=== PATIENT | male | born 1935 | race Caucasian/White ===

== ENCOUNTER 2018-08-25 08:59 | Outpatient (CLI) | payer MEDICARE, SELFPAY ==
[2018-08-25 11:30] LABS: Anion Gap 7.3 mmol/L (3-11); BUN 18 mg/dL (7-18); CO2 28.7 mmol/L (21.0-32.0); CREATININE 1.46 mg/dL (0.70-1.30); Chloride 104 mmol/L (98-107); Estimated GFR 46.34 (mL/min/1.73m2); Glucose 126 mg/dL (70-100); Potassium 4.2 mmol/L (3.5-5.1); Sodium 140 mmol/L (136-145)
== END 2018-08-25 09:19 ==
PROVIDERS: PCP Family Medicine; Visit Provider Family Medicine
DX: I10 Essential (primary) hypertension (principal)
CPT/HCPCS: 36415; 80048

== ENCOUNTER 2018-08-31 11:58 | Outpatient (REF) | payer MEDICARE, SELFPAY ==
--- NOTE | 2018-08-31 11:23 | ORMUBX_PTH ---
PATIENT: Bebe Jones LOC: [facility] U#:[id number] AGE/SX: 82/M ROOM: RE08/31/[address]: Miguel Angel Blackburn MD : [id number] BED: DIS: 08/31/2018 SPEC #: [id number] RECD: 08/31/18 18:03 STATUS: JEREMIAH REQ #: [id number] SHERI: 08/31/18 11:[address]: Miguel Angel Blackburn DEPT: Surgical Specimen RECD BY: Skyla Saxena ENTERED: 08/31/18 18:04 SP TYPE: ORMUBX OTHR DR: Jac Louise MD Tissues: 1 - MUCOSA, NOS Procedures: GROSS AND MICRO LEVEL 4 Comments: [id number]
== END 2018-08-31 12:18 ==
LOC: LBN 11:58
PROVIDERS: PCP Family Medicine; Visit Provider Otolaryngology
DX: C06.0 Malignant neoplasm of cheek mucosa (principal); F17.220 Nicotine dependence, chewing tobacco, uncomplicated
CPT/HCPCS: 88305

== ENCOUNTER 2018-09-11 02:06 | Outpatient (CLI) | payer MEDICARE, SELFPAY ==
[2018-09-11] MEDS: Inhaler, Assist Device 1 EACH MC (08:34)
[2018-09-11] MEDS: Albuterol HFA 18 GM 200 PUFF INH IH (08:36)
--- NOTE | 2018-09-11 16:56 | PFT_ITS ---
PULMONARY FUNCTION TEST REPORT DATE OF SERVICE: September 11, 2018 REQUESTING PROVIDER: Jac Louise M.D. Spirometry shows no evidence of obstructive airways disease, no bronchodilator response. Lung volumes show mild restriction. Diffusion capacity normal. Airways resistance normal. IMPRESSION: Mild restrictive lung disease. Clinical correlation recommended. When this study was compared to previous one from 05/01/12, the patient has a total of 660 cc's decline in FVC; FEV1 has declined by 420 cc's. Clinical correlation recommended. LAISHA/nithya D/
== END 2018-09-11 02:26 ==
PROVIDERS: PCP Family Medicine; Visit Provider Family Medicine
DX: R06.09 Other forms of dyspnea (principal)
CPT/HCPCS: 94060; 94150; 94726; 94729

== ENCOUNTER 2020-09-26 17:46 | Outpatient (REF) | payer OTHER, SELFPAY ==
[2020-09-26 18:34] LABS: CREATININE 1.3 mg/dL (0.70-1.30); Estimated GFR 52.59 (mL/min/1.73m2); Potassium 4.5 mmol/L (3.5-5.1)
== END 2020-09-26 17:47 | disposition home or self-care (01) ==
LOC: NCHCN 17:46
PROVIDERS: PCP Nurse Practitioner; Visit Provider Nurse Practitioner
DX: I10 Essential (primary) hypertension (principal); R73.03 Prediabetes
CPT/HCPCS: 82565; 83036; 84132

== ENCOUNTER 2020-10-01 02:00 | Outpatient (CLI) | payer OTHER, SELFPAY ==
--- NOTE | 2020-10-01 10:05 | DI.RAD_ITS ---
EXAM: XR HIP RT COMPLETE AP PELVIS INDICATION: rt hip pain, [id number]. COMPARISON: No exams were available for comparison TECHNIQUE: 2D digital imaging was performed. FINDINGS: Joint space is well maintained. No significant periarticular spurring. SI joints unremarkable. Min imal enthesophytes at the iliac wings. IMPRESSION: Minimal degenerative changes. DATA REPOSITORY: RADIATION DOSE DELIVERED:
== END 2020-10-01 02:20 ==
PROVIDERS: PCP Nurse Practitioner; Visit Provider Nurse Practitioner
DX: M25.551 Pain in right hip (principal); M16.11 Unilateral primary osteoarthritis, right hip
CPT/HCPCS: 73502

== ENCOUNTER 2021-03-03 18:57 | Emergency (ER) | payer OTHER, SELFPAY ==
[2021-03-03] VITALS (16 sets, daily range): BP systolic 135–160; BP diastolic 60–71; PULSE 75–79; RESP 22–28; TEMP 36.6; O2SAT 97–100
--- NOTE | 2021-03-03 19:00 | RT.EKG_ITS ---
APPROVED REPORT Exam: Resting ECG Reason for Exam: chest pain Patient Location: E HR:76 bpm ECG Measurements Heart Rate 76 AXIS HI 56 P 0 QRSd 158 QRS 93 QT 433 T -81 QTc 487 Conclusion Ventricular-paced rhythm Rate 76
--- NOTE | 2021-03-03 19:45 | DI.RAD_ITS ---
Exam(s) XR PORTABLE CHEST AP EXAM: XR PORTABLE CHEST AP CLINICAL HISTORY: chf, sob. TECHNIQUE: 2D digital imaging was performed. COMPARISON: No exams were available for comparison FINDINGS: Heart size is upper normal. The mediastinum is not widened. There both right and left bipolar subclavian pacemaker is with lead tips in are in RV. Mild increase d markings in the lung diaz most probably related to under inflation. No confluent infiltrates nor obvious pleural effusions. No airspace pulmonary edema. No pneumothorax IMPRESSION: Mild cardiomegaly. Cardiac pacemakers. No acute pulmonary findings evident on this AP portable view of the chest. DATA REPOSITORY: RADIATION DOSE DELIVERED: All CT scans at this facility use at least one of these dose optimization techniques: automated exposure control; mA and/or kV adjustment per patient size (includes targeted e xams where dose is matched to clinical indication); or iterative reconstruction.
[2021-03-03 20:07] LABS: Abs Immature Grans 0.08 10^3/uL (0.0-0.06); Absolute Basophil Count 0.16 10^3/uL (0.0-0.2); Absolute Lymphocyte Count 1.75 10^3/uL (1.2-3.4); Absolute Monocyte Count 0.96 10^3/uL (0.1-0.8); Basophils % 1.7; Eosinophils % 3.1; HCT 41.6 % (40.0-50.0); HGB 13.3 g/dL (13.5-17.5); Immature Grans % 0.8; Lymphocytes % 18.3; MCH 28.7 pg (27.0-33.0); MCV 89.8 fL (80-95); MPV 9.4 fL (8.0-11.0); Monocytes % 10.1; Nucleated RBC 0 %; Platelet Count 330 10^3/uL (130-400); RBC 4.63 10^6/uL (4.36-5.78); RDW-SD 45.9 fL; WBC 9.55 10^3/uL (4.4-10.8)
[2021-03-03 20:14] LABS: Magnesium 2.3 mg/dL (1.8-2.4)
--- NOTE | 2021-03-03 20:16 | W.ED.GENAD ---
Discharge Plan Disposition Patient Disposition: HOME Condition: Good Discharge Details Clinical Impression: CHF (congestive heart failure), Acute bacterial conjunctivitis Primary Care Provider: Zee Pepe ED Provider: Sina Olmos Home Meds and New Rx's Prescriptions: Continued amlodipine 10 mg tablet 10 mg PO DAILY Qty: 90 RF: 4 rivaroxaban 20 mg tablet 20 mg PO DAILY Qty: 90 RF: 4 furosemide 20 mg tablet 40 mg PO DAILY PRN (Reason: edema) RF: 0 Discharge Instructions Instructions: Heart Failure (ED), Conjunctivitis (ED) Additional Instructions: At this time you have a very mild amount of fluid still present in your legs and lungs. We have given you an extra dose of Lasix through the IV, please continue to take 2 of the water pills every morning until you see your family doctor on . Avoid salty foods, keep your legs elevated to decrease the swelling. Please follow-up with your family doctor for discussion of new echocardiogram of your heart to reassess your heart function on a nonemergent outpatient basis. Please apply to drop of the Cipro drops to your affected eye every 4 hours throughout the day. If you notice any worsening of your symptoms, or any new symptoms such as vomiting, diarrhea, fever, chills, shortness of breath, chest pain, numbness, weakness, or fainting , please return immediately to the emergency department for reevaluation. Please follow up with your primary care provider as soon as possible for reassessment and reevaluation. As always, it was a pleasure participating in your medical care today. 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 Patient is here with his daughter, present stating that for the last 2 weeks he has had increased swelling in his lower extremities face and upper extremities. He denies any chest pain or shortness of breath, he denies any positional nocturnal dyspnea, however that being said he does sleep in a recliner at all times. He denies any exertional chest pain. 5 days ago he was seen by his PCP and they doubled his furosemide pill, he has been taking 40 mg daily for the last 4 days. Family has noted some improvement with this for the upper extremities but not the lower extremities. On a seemingly unrelated note the patient has also noted some purulent discharge noted in the right eye. No pain or changes in vision otherwise so. No other complaints at this time. Physical exam demonstrates +2 pitting edema in the lower extremities bilaterally, oxygenation is excellent, lung sounds are clear however bedside ultrasound demonstrate mild streaking and B-lines suggestive of mild fluid overload. Bedside ultrasound of the heart demonstrates no pericardial effusion certainly does seem to demonstrate a reduced ejection fraction from his previous 65% measured 6 months ago. Qualitatively it appears to be around 30 to 40% at this time. I suspect the patient would benefit from continued increase in his furosemide. We will get basic labs to evaluate for his proBNP levels at baseline, as well as a portable chest x-ray for further assessment. In regards to the patient's right eye he does demonstrate evidence of very mild bacterial conjunctivitis which I feel he would benefit from a antibacterial eyedrop. We will provide that here. 8:51 PM Laboratory work-up demonstrates no white count bandemia or left shift. Electrolytes normal, creatinine at baseline at 1.4. Troponin normal, EKG demonstrates ventricular paced rhythm, negative for SCARBOSSA criterion. No evidence of STEMI. proBNP is 819, and not overly elevated. Chest x-ray is read as negative per virtual radiology however bedside ultrasound did show evidence of some B-lines which do not seem to represent consolidation but rather I feel are independent sales representative of mild fluid overload. Patient has no hypoxemia, no indication at this time for admission. I do feel that the patient would benefit from a few more additional days of increased Lasix. We will give him an additional dose of 20 mg of Lasix IV, then recommend that he continues his extra pills until he sees his primary care provider on his scheduled visit on . Symptoms at this time are inconsistent with STEMI, or severe CHF. Will recommend repeat outpatient ultrasound. I have extensively reviewed the treatment plan and discharge instructions with the patient and their family. I have addressed all patient concerns at this time. The patient and family was made aware of what symptoms to monitor for that would warrant a return to the emergency department. Discussed the plan with the patient and family, they demonstrate verbal understanding and agreement with our assessment and plan at this time. The documentation in this chart was dictated using [employer] dictation software. Please excuse any dictation errors. FINDINGS: Tubes, catheters and devices: There are bilateral chest wall pacemakers. One lead projects in the region of the right ventricular outflow tract, and there are multiple leads projecting at the right atrium. Lungs: The lungs are clear. There is no pulmonary vascular congestion. Pleural spaces: There are no pleural effusions present. Heart/Mediastinum: The cardiomediastinal silhouette is within normal limits. Bones/joints: Unremarkable. IMPRESSION: No active cardiopulmonary disease identified. Thank you for allowing us to participate in the care of your patient. Dictated and Authenticated by: Jac Vega MD 03/03/2021 8:48 PM Eastern Time ([place] & [place]) HPI General Date/Time Provider Initiated Documentation: 03/03/21 19:00. 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 Patient is here with his daughter, present stating that for the last 2 weeks he has had increased swelling in his lower extremities face and upper extremities. He denies any chest pain or shortness of breath, he denies any positional nocturnal dyspnea, however that being said he does sleep in a recliner at all times. He denies any exertional chest pain. 5 days ago he was seen by his PCP and they doubled his furosemide pill, he has been taking 40 mg daily for the last 4 days. Family has noted some improvement with this for the upper extremities but not the lower extremities. On a seemingly unrelated note the patient has also noted some purulent discharge noted in the right eye. No pain or changes in vision otherwise so. No other complaints at this time. Related Data Home Medications Medication Instructions Recorded Confirmed rivaroxaban 20 mg tablet 20 mg PO DAILY #90 tab 10/10/20 03/03/21 amlodipine 10 mg tablet 10 mg PO DAILY #90 tab 02/27/21 03/03/21 furosemide 40 mg PO DAILY PRN 03/03/21 03/03/21 Previous Rx's Medication Instructions Recorded rivaroxaban 20 mg tablet 20 mg PO DAILY #90 tab 10/10/20 amlodipine 10 mg tablet 10 mg PO DAILY #90 tab 02/27/21 Allergies Allergy/AdvReac Type Severity Reaction Status Date / Time No Known Allergies Allergy Verified 03/03/21 19:20 General Stated Complaint: GenMedical RYAN: 2 Review of Systems All systems reviewed & are unremarkable except as noted in HPI and below PFSH Medical History Depressive disorder Shoulder pain right shoulder; surgery in 1981; 2005; atrophy Surgical History History of shoulder surgery Pacemaker SHOULDER SURGERY (~2005) Family History Mother Personal history of malignant neoplasm Father Heart disease DC Sister Personal history of malignant neoplasm Brother Personal history of malignant neoplasm STOMACH Grandfather Heart disease Grandfather Personal history of malignant neoplasm Grandmother Stroke Grandmother Personal history of malignant neoplasm Social History Smoking/Tobacco Use Status: Former Tobacco Use Tobacco: How many years used: 70 Quit status: considering quitting Smoking risk assessment performed?: Yes Alcohol Intake: current Alcohol Intake frequency: a few times a week Alcohol type: beer Drug use: Never Household members: spouse Housing: house Pets and animals: Yes Pets and animals: dog(s) Sexually active: No Do you think of yourself as: straight/heterosexual Current gender identity: male What is your relationship status?: How often do you talk on the phone with friends or family?: twice per week How often do you attend holiness or jew services?: 1-3 times per year Do you belong to any clubs or organized social groups?: no Panel score (0-1 are the most socially isolated patients): 1 What type of physical activity do you participate in: none Seatbelt use: sometimes Helmet use: Yes Helmet use: sometimes Drive intox 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 Mild purulent drainage around the medial and lateral canthus. 3.ENT: Atraumatic external nose and ears. Moist MM. Neck: Symmetric, trachea midline, No thyromegaly. 4.CVS: +S1/S2, No murmurs or gallops. Peripheral pulses 2+ and equal in all extremities. Brisk capillary refill in all extremities. 5.RESP: Unlabored respiratory effort. Clear to auscultation bilaterally. No wheezes rales or rhonchi 6.GI: Soft, Nontender/Nondistended, No hepatosplenomegaly. No guarding or rebound. 7.MSK: Normocephalic/Atraumatic, Extremities w/o deformity or ttp No cyanosis or clubbing, Normal movement of all extremities, patient demonstrates +2 pitting edema in the lower extremities, no edema in the upper extremities. Face is unremarkable with no evidence of angioedema. 8.Skin: Warm, Dry. No rashes or lesions. 9.Neuro: chief compliance officer II-XII grossly intact. Sensation grossly intact, no focal neurologic deficits. 10.Psych: (AAO) x3. Appropriate mood and affect Course Vital Signs Vital signs: Vital Signs Temperature 36.6 C 03/03/21 19:10 Pulse 78 03/03/21 19:10 Respiratory Rate 26 H 03/03/21 19:10 Blood Pressure 150/62 H 03/03/21 19:10 Pulse Oximetry 99 03/03/21 19:10 Temperature 36.6 C 03/03/21 19:10 Temperature Source Skin 03/03/21 19:10 Pulse 78 03/03/21 19:10 Respiratory Rate 26 H 03/03/21 19:10 Respiratory Effort Non-Labored 03/03/21 19:31 Blood Pressure 150/62 H 03/03/21 19:10 Blood Pressure Position Supine 03/03/21 19:10 Pulse Oximetry 99 03/03/21 19:10 Oxygen Delivery Method Room Air 03/03/21 19:10 Oxygen Flow Rate 0 03/03/21 19:10 Pain Level 0 03/03/21 19:10 Lab/Test Results Lab/Test Results: Laboratory Tests Range/Units 03/03/21 03/03/21 19:40 19:59 WBC (4.4-10.8) 10^3/uL 9.55 RBC (4.36-5.78) 10^6/uL 4.63 Hgb (13.5-17.5) g/dL 13.3 L Hct (40.0-50.0) % 41.6 MCV (80-95) fL 89.8 MCH (27.0-33.0) pg 28.7 MCHC (32.0-36.0) % 32.0 RDW (11.8-14.1) % 14.0 Plt Count (130-400) 10^3/uL 330 MPV (8.0-11.0) fL 9.4 Immature Gran % 0.8 Neutrophils % 66.0 Lymphocytes % 18.3 Monocytes % 10.1 Eosinophils % 3.1 Basophils % 1.7 Nucleated RBC % % 0 Absolute Neutrophils (1.2-6.7) 10^3/uL 6.30 Absolute Lymphocytes (1.2-3.4) 10^3/uL 1.75 Absolute Monocytes (0.1-0.8) 10^3/uL 0.96 H Absolute Eosinophils (0.0-0.7) 10^3/uL 0.30 Absolute Basophils (0.0-0.2) 10^3/uL 0.16 Sodium Cancelled Potassium Cancelled Chloride Cancelled Carbon Dioxide Cancelled Anion Gap Cancelled BUN Cancelled Creatinine Cancelled Estimated GFR/1.73 m2 Cancelled Glucose Cancelled Calcium Cancelled Total Bilirubin Cancelled AST Cancelled ALT Cancelled Alkaline Phosphatase Cancelled Troponin I Cancelled Total Protein Cancelled Albumin Cancelled
[2021-03-03 20:24] LABS: ALT 22 U/L (16-63); AST 25 U/L (15-37); Albumin 3.8 g/dL (3.4-5.0); Alkaline Phosphatase 79 U/L (46-116); Anion Gap 8.6 mmol/L (3-11); BUN 17 mg/dL (7-18); Bilirubin, Total 0.4 mg/dL (0.2-1.0); CO2 26.4 mmol/L (21.0-32.0); CREATININE 1.4 mg/dL (0.70-1.30); Calcium 8.9 mg/dL (8.5-10.1); Chloride 102 mmol/L (98-107); Estimated GFR 48.28 (mL/min/1.73m2); Glucose 97 mg/dL (74-106); NT-proBNP 819 pg/mL (<300); Potassium 4.2 mmol/L (3.5-5.1); Sodium 137 mmol/L (136-145); Total Protein 8.2 g/dL (6.4-8.2); Troponin I < 0.05 ng/mL (<0.06)
--- NOTE | 2021-03-03 20:48 | DI.VRAD_ITS ---
PROCEDURE INFORMATION: Exam: XR Chest Exam date and time: 03/03/2021 8:00 PM Age: 85 years old Clinical indication: Shortness of breath; Prior surgery; Surgery date: 6+ months; Surgery type: Pace maker x 2 due to broken wire on first one; Patient HX: Chf, SOB TECHNIQUE: Imaging protocol: XR of the chest. Views: 1 view. COMPARISON: No relevant prior studies available. FINDINGS: Tubes, catheters and devices: There are bilateral chest wall pacemakers. One lead projects in the region of the right ventricular outflow tract, and there are multiple leads projecting at the right atrium. Lungs: The lungs are clear. There is no pulmonary vascular congestion. Pleural spaces: There are no pleural effusions present. Heart/Mediastinum: The cardiomediastinal silhouette is within normal limits. Bones/joints: Unremarkable. IMPRESSION: No active cardiopulmonary disease identified. Dictated and Authenticated by: Jac Vega MD. Ordering:JOSE Andino MD
[2021-03-03] MEDS: Furosemide 20 MG/2 ML VIAL IVP (21:36)
[2021-03-03] MEDS: Ciprofloxacin 0.3% 2.5 ML BTL OD (21:47)
== END 2021-03-03 23:38 | disposition home or self-care (01) ==
PROVIDERS: Emergency Medicine; Emergency Provider Student in an Organized Health Care Education/Training Program; PCP Nurse Practitioner
DX: I50.9 Heart failure, unspecified (principal); Z95.0 Presence of cardiac pacemaker; H10.31 Unspecified acute conjunctivitis, right eye; R06.02 Shortness of breath
CPT/HCPCS: 36415; 80053; 93005; 96374; 99284; 71045; 83735; 83880; 84484; 85025; 93010; J1941

== ENCOUNTER → 2021-03-23 11:02 | Outpatient (BNVA) | payer MEDICARE, SELFPAY | PROVIDERS: PCP Nurse Practitioner; Referring Provider Nurse Practitioner; Visit Provider Internal Medicine Cardiovascular Disease | DX: I25.10 Atherosclerotic heart disease of native coronary artery without angina pectoris (principal); I50.9 Heart failure, unspecified; R60.9 Edema, unspecified; I11.0 Hypertensive heart disease with heart failure; I48.20 Chronic atrial fibrillation, unspecified; Z95.0 Presence of cardiac pacemaker | CPT/HCPCS: 99214 ==

== ENCOUNTER 2021-04-21 00:49 | Outpatient (CLI) | payer MEDICARE, SELFPAY ==
--- NOTE | 2021-04-21 07:30 | DI.US_ITS ---
APPROVED REPORT EXAM: Comprehensive 2D, Doppler, and color-flow Echocardiogram Patient Location: Out-Patient Salt Operator: Louise Velasquez RDCS (AE) Indications: Heart failure, Coronary Atherosclerosis, HTN, Pacemaker Other Information Study Quality: Adequate Conclusion Normal left ventricular wall thickness and chamber size. Estimated ejection fraction is 55 to 60%. There are no segmental wall motion abnormalities Mildly dilated right ventricle Both atria are mildly dilated Device lead noted in the right heart Sclerotic aortic valve with trace to mild regurgitation Moderate mitral annular calcification. Mild to moderate mitral regurgitation Normal tricuspid valve with mild regurgitation. Estimated right ventricular systolic pressure is 30 mmHg Normal pulmonic valve with trace regurgitation Mildly dilated ascending aorta measuring 3.55 cm Wall motion Left Ventricle The left ventricle is normal size. The left ventricular systolic function is normal. The left ventric ular ejection fraction is within the normal range. There is normal left ventricular wall thickness. T here is normal LV segmental wall motion. There is no ventricular septal defect visualized. LVEF is 55 -60%. Right Ventricle Right ventricle is mildly dilated. The right ventricular systolic function is normal. The RVSP is 30. 2mmHg. Pacemaker lead is present in the right ventricle. Atria Left atrium is mildly dilated. Right atrium is mildly dilated. The interatrial septum is intact with no evidence for an atrial septal defect. Aortic Valve The Aortic valve is sclerotic. Aortic valve is probably trileaflet. Aortic valve is calcified. No hem odynamically significant valvular aortic stenosis. Trace to mild aortic regurgitation. Mitral Valve Moderate mitral annular calcification. No evidence of mitral valve stenosis. Mild to moderate mitral regurgitation. Tricuspid Valve The tricuspid valve is normal in structure. There is no tricuspid valve stenosis. Mild tricuspid regu rgitation. Pulmonic Valve The pulmonary valve is normal in structure. There is no pulmonic valvular stenosis. Trace pulmonic re gurgitation. Great Vessels The aortic root is normal in size. The ascending aorta is mildly dilated. Aortic arch is not well vis ualized. IVC is normal in size and collapses >50% with inspiration. Pericardium There is no pericardial effusion. 2D Dimensions IVSD d PLAX 1.10 cm M: 0.6-1.2 LV Vol A2C d MOD 80.3 mL LVPW d PLAX 1.10 cm M: 0.6 - 1.2 LV Vol A4C d MOD 85.0 mL LVID d PLAX 4.09 cm M: 4.2 - 5.8 LA vol/ BSA A2C s A-L 45.7 mL/m2 LVDs 2.95 cm M: 2.5 - 4.0 LA vol/ BSA A4C s A-L 30.4 mL/m2 Ao Root d 3.14 cm M: 3.1 - 3.7 LA Vol/ BSA Biplane s A-L 37.8 mL/m2 RA Area A4C 16.56 cm2 LA Area A4C s MOD 19.90 cm2 RA Vol/ BSA A4C s A-L 24.6 mL/m2 LA Area A2C s MOD 24.11 cm2 Ao Asc Diam d 3.55 cm M: 2.6 - 3.4 LV EF A4C MOD 57.1 % LV EF Teichholz 53.4 % LV EF A2C MOD 55.5 % LVEF (Cruz's) 56.32 % M: 52 - 72 LV EF Biplane MOD 56.3 % LV Volume 65.73 mL M: 62 - 150 SV 47.04 mL LV Volume Index 37.77 mL/m2 M: 34 - 74 SV Index 27.00 mL/m2 LV Vol Biplane MOD 83.5 mL FS 27.15 % M-Mode TAPSE 1.78 cm (M/F) >1.7 LV Diastology MV E' medial 0.059 (>0.07 m/s) MV E Vmax 1.34 (0.4-1.3 m/s) LV E/e MED 22.75 (<14) MV E' lateral 0.101 (>0.1 m/s) LV E/e LAT 13.20 (<14) MV E/E' medial 22.78 MV E/E' lateral 13.23 Aortic Valve LVOT Area 3.08 cm2 AoV Area Vmax 1.66 cm2 LVOT Vmax 1.08 m/s AoV Area/ BSA (Vmax) 0.95 cm2/m2 LVOT Mean Huan. 0.81 m/s TWIN Mean Huan. 1.59 cm2 LVOT Peak Grad 4.7 mmHg TWIN Mean Huan. Index 0.91 cm2/m2 LVOT Mean Grad 2.9 mmHg AR DT 2500 msec LVOT VTI 0.209 m AR PHT 725 msec LVOT Diam s 1.95 cm AoV Vmax 2.00 m/s Velocity Ratio 0.54 AoV Mean Huan. 1.58 m/s AoV Peak Grad 16.1 mmHg LVOT SV 64.39 mL AoV Mean Grad 10.6 mmHg AoV VTI 0.465 m AoV Area VTI 1.39 cm2 AoV Area/ BSA (VTI) 0.80 cm/m2 Mitral Valve MV DT 178 (160-240 msec) MR Vmax 4.38 m/s MV PHT 52 msec MR VTI 1.133 m MV Area PHT 4.26 cm2 MR Peak Grad 76.6 mmHg MV VTI 0.370 m MR Mean Grad 57.8 mmHg MV VTI Annulus 0.358 m MV Area VTI 1.68 (4.0-6.0 cm2) Pulmonary Valve PV Vmax 1.04 (0.5-1.5 m/s) RVOT Peak Gr. 1.69 mmHg PV Peak Grad 4.3 mmHg RVOT Mean Gr. 1.05 mmHg PV Mean Grad 2.8 mmHg RVOT VTI 0.136 m PV VTI 0.208 m RVOT Vmax 0.65 m/s Tricuspid Valve TR Peak Grad 27.1 mmHg TR Vmax 2.61 m/s RA Pressure 3.00 mmHg RVSP (TR) 30.2 mmHg
== END 2021-04-21 01:09 ==
PROVIDERS: PCP Nurse Practitioner; Visit Provider Internal Medicine Cardiovascular Disease
DX: I25.10 Atherosclerotic heart disease of native coronary artery without angina pectoris (principal); I50.9 Heart failure, unspecified; Z95.0 Presence of cardiac pacemaker; I08.3 Combined rheumatic disorders of mitral, aortic and tricuspid valves; I77.810 Thoracic aortic ectasia
CPT/HCPCS: 93306

== ENCOUNTER 2021-04-22 02:37 | Outpatient (CLI) | payer MEDICARE, SELFPAY ==
--- NOTE | 2021-04-22 09:00 | DI.CT_ITS ---
Exam(s) CT LUMBAR SPINE WO EXAM: CT LUMBAR SPINE WO CLINICAL HISTORY: worsening back pain,SPINAL STENOSIS LUMBAR REGION,M48.061. TECHNIQUE: Imaging Protocol: Axial computed tomography images with coronal and sagittal reformatted images were created and reviewed COMPARISON: CR LUMBAR SPINE COMPLETE from 02/28/2013 CR LUMBAR SPINE COMPLETE from 02/28/2013 FINDINGS: Bones: There are no fractures, listhesis, nor pars defects. There are no lytic osseous lesions evide nt. INDIVIDUAL LEVELS: T12-L1:No disc herniation nor canal stenosis. Moderate degenerative changes in the right facet joint. Mild degenerative changes in the left facet joint no prominent foraminal stenosis. L1-2: Mild annular bulging. No dominant disc herniation. Mild central spinal canal stenosis due to short AP dimensions the pedicles. Mild degenerative changes right facet joint. Left facet joint un remarkable. Mild bilateral foraminal stenosis due to disc height loss. L2-3: Mild decreased disc height loss. No disc herniation. Central canal dimensions lower normal-m ild central canal stenosis due to short AP dimensions of the pedicles. There are mild degenerative c hanges in the facet joints. No significant foraminal stenosis. L3-4: This level exhibits advanced disc space height loss and vacuum phenomenon seen within the cent ral disc space. There is moderate-severe central spinal canal stenosis due to broad annular bulging, short AP dimensions of the pedicles and mild degenerative changes in the facet joints. There does n ot appear to be a distinct focal disc herniation. Mild central canal stenosis noted, slightly more s o on the left side. This is mostly related to vertical height loss due to disc space decreased. L4-5: Moderate disc height loss. Although there is no obvious disc herniation there is broad annula r bulging. There is severe central spinal canal stenosis due to a combination of broad annular bulgi ng and short AP dimensions the pedicles as well as advanced degenerative changes in both facet joints . there is also bilateral foraminal stenosis at this level-moderate. L5-S1: Advanced disc height loss. No distinct focal disc herniation. Mild central canal stenosis. No listhesis. Significant advanced bilateral foraminal stenosis due to advanced disc height loss po sterior bony ridging. Moderate facet arthropathy The visualized sacroiliac joints and sacrum appear unremarkable. PARASPINAL SOFT TISSUES: Large prostate gland IMPRESSION: 1. Multilevel chronic degenerative disc disease. Although there is no distinct focal disc herniation , there is multilevel broad annular bulging. There is multilevel spinal canal stenosis, severe at L4 -5 and moderate-severe at L3-4 level. Central canal stenosis in this patient is due to short AP dime nsions of the pedicles (developmental basis) as well as annular bulging and degenerative changes in t he facet joints. 2. Multilevel foraminal stenosis also noted which is mostly related to vertical foraminal stenosis fr om disc height loss at these levels. 3. No fractures. No ominous osseous lesions identified. RADIATION DOSE DELIVERED: 613.29mGy.cm Total DLP DATA REPOSITORY: All CT scans at this facility are submitted to the National Radiology Data Registry (NRDR) Dose Index Registry (DIR) with the [employer] (A[employer]). RADIATION OPTIMIZATION: All CT scans at this facility use at least one of these dose optimization te chniques: automated exposure control; mA and/or kV adjustment per patient size (includes targeted exa ms where dose is matched to clinical indication); or iterative reconstruction.
== END 2021-04-22 02:57 ==
PROVIDERS: PCP Nurse Practitioner; Visit Provider Nurse Practitioner
DX: M48.061 Spinal stenosis, lumbar region without neurogenic claudication (principal); Z95.0 Presence of cardiac pacemaker; M51.36 Other intervertebral disc degeneration, lumbar region
CPT/HCPCS: 72131

== ENCOUNTER → 2021-04-23 10:58 | Outpatient (BNVA) | payer MEDICARE, SELFPAY | PROVIDERS: PCP Nurse Practitioner; Referring Provider Nurse Practitioner; Visit Provider Internal Medicine Cardiovascular Disease | DX: I48.21 Permanent atrial fibrillation (principal); I10 Essential (primary) hypertension; Z95.0 Presence of cardiac pacemaker | CPT/HCPCS: 99214; 99213 ==

== ENCOUNTER → 2021-07-24 08:49 | Outpatient (BNVA) | payer MEDICARE, SELFPAY | PROVIDERS: PCP Nurse Practitioner; Visit Provider Internal Medicine Cardiovascular Disease | DX: I48.21 Permanent atrial fibrillation (principal); I10 Essential (primary) hypertension; Z95.0 Presence of cardiac pacemaker; Z79.01 Long term (current) use of anticoagulants | CPT/HCPCS: 99214; 99213 ==

== ENCOUNTER 2021-10-26 02:39 | Outpatient (CLI) | payer MEDICARE, SELFPAY ==
[2021-10-26 12:44] LABS: Anion Gap 7.6 mmol/L (3-11); BUN 19 mg/dL (7-18); CO2 27.4 mmol/L (21.0-32.0); CREATININE 1.5 mg/dL (0.70-1.30); Calcium 8.8 mg/dL (8.5-10.1); Chloride 105 mmol/L (98-107); Estimated GFR 44.48 (mL/min/1.73m2); Glucose 103 mg/dL (74-106); Hemoglobin A1C 6.4 % (<5.7); Potassium 4.8 mmol/L (3.5-5.1); Sodium 140 mmol/L (136-145)
== END 2021-10-26 02:40 | disposition home or self-care (01) ==
LOC: LOS 02:39
PROVIDERS: PCP Nurse Practitioner; Visit Provider Nurse Practitioner
DX: I10 Essential (primary) hypertension (principal); R73.03 Prediabetes; I50.9 Heart failure, unspecified
CPT/HCPCS: 36415; 80048; 83036

== ENCOUNTER 2021-12-05 23:37 | Emergency (ER) | payer MEDICARE, SELFPAY ==
--- NOTE | 2021-12-05 23:42 | ED.GENADUL_ITS ---
Discharge Plan Disposition Patient Disposition: HOME Condition: Improving Discharge Details Clinical Impression: Epistaxis Primary Care Provider: Zee Pepe ED Provider: Moiz Viveros Meds and New Rx's Prescriptions: New cephalexin 500 mg tablet 500 mg PO Q8H Qty: 10 0RF Continued furosemide 20 mg tablet 20 mg PO DAILY PRN (Reason: edema) Qty: 180 4RF acetaminophen [Tylenol 8 Hour] 650 mg tablet extended release 650 mg PO Q12H metoprolol succinate 25 mg tablet extended release 24 hr 25 mg PO DAILY Qty: 90 3RF tramadol 50 mg tablet 50 mg PO BID PRN (Reason: pain) Qty: 30 1RF valsartan 80 mg tablet 80 mg PO DAILY Qty: 30 7RF Xarelto 20 mg tablet 20 mg PO DAILY Qty: 30 0RF Rx Instructions: must administer with evening meal Discharge Instructions Instructions: Nosebleed (ED) Additional Instructions: You have a nasal tampon in that will need to be removed in 2 to 3 days. Please contact ENT, Dr. Blackburn, Tuesday morning for appointment. Please take cephalexin 3 times a day while tampon in place. Return to ED for fever, facial pain, persistent bleeding, other concerns Referrals: [facility] [Provider Group] - 3 days Medical Decision Making Extensive bleeding from the left nares on arrival. Unable to identify source and given use of anticoagulation decision to place Rapid Rhino made. 7.5 centimeter Rapid Rhino placed with no problems. Epistaxis immediately controlled. Patient observed with no recurrent bleeding. Started on cephalexin prophylactically with balloon in place. Discussed follow-up with ENT on Tuesday or Tuesday. Return precautions provided. Son present to go over discharge and follow-up as patient very hard of hearing Medical Records Medical records reviewed: Yes I reviewed the patient's medical records. HPI General Mode of arrival: EMS . Date/Time Provider Initiated Documentation: 12/05/21 23:42 . Information obtained by: patient and RN notes reviewed . HPI Narrative: Patient presents to ED with nosebleed. Patient reports having nosebleed this morning which resolved. Restarted again tonight and will not stop. He is on anticoagulation. He denies any trauma. He denies any chest pain, shortness of breath, lightheadedness. He has not been ill and denies any URI type symptoms. Related Data Home Medications Medication Instructions Recorded Confirmed acetaminophen 650 mg 650 mg PO Q12H 03/05/21 12/06/21 tablet,extended release (Tylenol 8 Hour) metoprolol succinate 25 mg 25 mg PO DAILY #90 tabs 04/23/21 12/06/21 tablet,extended release 24 hr tramadol 50 mg tablet 50 mg PO BID PRN pain #30 tabs 06/04/21 12/06/21 valsartan 80 mg tablet 80 mg PO DAILY #30 tabs 06/22/21 12/06/21 rivaroxaban 20 mg tablet (Xarelto) 20 mg PO DAILY #30 tabs 10/12/21 12/06/21 furosemide 20 mg tablet 20 mg PO DAILY PRN edema #180 tabs 10/15/21 12/06/21 cephalexin 500 mg tablet 500 mg PO Q8H #10 tabs 12/06/21 Previous Rx's Medication Instructions Recorded metoprolol succinate 25 mg 25 mg PO DAILY #90 tabs 04/23/21 tablet,extended release 24 hr tramadol 50 mg tablet 50 mg PO BID PRN pain #30 tabs 06/04/21 valsartan 80 mg tablet 80 mg PO DAILY #30 tabs 06/22/21 rivaroxaban 20 mg tablet (Xarelto) 20 mg PO DAILY #30 tabs 10/12/21 furosemide 20 mg tablet 20 mg PO DAILY PRN edema #180 tabs 10/15/21 cephalexin 500 mg tablet 500 mg PO Q8H #10 tabs 12/06/21 Allergies Allergy/AdvReac Type Severity Reaction Status Date / Time No Known Allergies Allergy Verified 12/05/21 23:56 General RYAN: 2 Review of Systems Narrative: As documented in HPI otherwise negative as below. Const: no fever, chills, weakness Resp: no cough, SOB, pleuritic pain CV: no CP, diaphoresis, edema, syncope GI: no abdominal pain, nausea, vomiting, diarrhea Neuro: no headache, numbness, focal weakness, confusion PFSH All Active Problems Raised prostate specific antigen (Acute) Shoulder pain (Acute) right shoulder; surgery in 1981; 2005; atrophy Epistaxis (Acute) Lesion of skin of face (Acute) Constipation (Acute) Low back pain associated with a spinal disorder other than radiculopathy or spinal stenosis (Acute) Spinal stenosis of lumbar region (Acute) Edema (Acute) Hip pain (Acute) Prediabetes (Acute) Polyp of colon (Chronic 05/26/03) tubular adenoma Rosacea (Chronic) 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) Medical History Atrial fibrillation Benign prostatic hyperplasia CHF (congestive heart failure) 02/2021- EF 30-40% Coronary atherosclerosis of [place] coronary vessel 08/2020- echo [facility] [place] [place] normal with EF 63%- 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 06/16- now seeing Dr Guillen Depressive disorder Hypertension 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[facility] [place] [place] Ventricular arrhythmia Surgical History 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, followed by [facility] [place] [place] at [facility], generator replaced 12/15/09, [facility] History of shoulder surgery Family History Mother Personal history of malignant neoplasm Father Heart disease [place] Sister Personal history of malignant neoplasm Brother Personal history of malignant neoplasm STOMACH Grandfather Heart disease Grandfather Personal history of malignant neoplasm Grandmother Stroke Grandmother Personal history of malignant neoplasm Social History Smoking/Tobacco Use Status: Current every day Tobacco Type: smokeless tobacco Tobacco: How many years used: 70 Smokeless tobacco user: chewing tobacco Quit status: considering quitting Smoking risk assessment performed?: Yes Alcohol Intake: current Alcohol Intake frequency: a few times a month Drug use: Never Substance use type: does not use Household members: spouse Housing: house current occupation: Retired Pets and animals: Yes Pets and animals: dog(s) Sexually active: No Do you think of yourself as: straight/heterosexual Current gender identity: male What is your relationship status?: How often do you talk on the phone with friends or family?: twice per week How often do you attend hindu or sabianist services?: 1-3 times per year Do you belong to any clubs or organized social groups?: no Panel score (0-1 are the most socially isolated patients): 1 What type of physical activity do you participate in: none Seatbelt use: sometimes Helmet use: Yes Helmet use: sometimes Drive intox or ride w/intox corrugated 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 HEENT: NC/AT. Normal facial exam. Active bleeding from left nares. Eyes: Normal conjunctiva and sclera. Neck: Supple. Trachea midline. Lungs: Normal respiratory effort. Neuro: A+O x 3. Normal speech, mentation, gait. Cranial nerves II - XII grossly intact, though very hard of hearing. No gross motor or sensory deficit. Ext: No C/C/E. Skin: Warm and dry without rash. Procedures Epistaxis Control Nostril: left Direct Inspection: unable to visualize Device Inserted: hemostatic balloon Patient Tolerated Procedure: well and no complications
[2021-12-05 23:44] VITALS: BP 165/65; PULSE 84; RESP 14; TEMP 36.7; O2SAT 95
[2021-12-06] MEDS: Cephalexin 500 MG CAP PO (00:47)
== END 2021-12-06 00:49 | disposition home or self-care (01) ==
LOC: ER 12-06 00:47
PROVIDERS: Emergency Provider Emergency Medicine; PCP Nurse Practitioner
DX: R04.0 Epistaxis (principal); Z79.01 Long term (current) use of anticoagulants; I48.91 Unspecified atrial fibrillation; I10 Essential (primary) hypertension
CPT/HCPCS: 30901

== ENCOUNTER 2021-12-06 08:46 | Emergency (ER) | payer MEDICARE, SELFPAY ==
[2021-12-06 08:49] VITALS: BP 179/88; PULSE 86; RESP 16; TEMP 36.9; O2SAT 98
--- NOTE | 2021-12-06 09:00 | ED.GENADUL_ITS ---
Discharge Plan Disposition Patient Disposition: HOME Condition: Improving Discharge Details Clinical Impression: Epistaxis Primary Care Provider: Zee Pepe ED Provider: Jefe Rubio Home Meds and New Rx's Prescriptions: No Action furosemide 20 mg tablet 20 mg PO DAILY PRN (Reason: edema) Qty: 180 4RF acetaminophen [Tylenol 8 Hour] 650 mg tablet extended release 650 mg PO Q12H metoprolol succinate 25 mg tablet extended release 24 hr 25 mg PO DAILY Qty: 90 3RF tramadol 50 mg tablet 50 mg PO BID PRN (Reason: pain) Qty: 30 1RF valsartan 80 mg tablet 80 mg PO DAILY Qty: 30 7RF Xarelto 20 mg tablet 20 mg PO DAILY Qty: 30 0RF Rx Instructions: must administer with evening meal cephalexin 500 mg tablet 500 mg PO Q8H Qty: 10 0RF Discharge Instructions Instructions: Nosebleed (ED) Additional Instructions: Please do not wipe or blow your nose for the next 24 to [address] abilization of the clot that is prevent further nosebleeds. Continue to take your medication as prescribed and return to the emergency department immediately for any new or significant worsening of symptoms. If you notice any additional abnormal bruising bleeding black or tarry bowel movement or other concerning signs of your blood being too thin please return to emergency department or emergently follow-up with your primary care provider. Referrals: Zee Pepe, SENIOR COURTROOM CLERK [Primary Care Provider] - (As needed for reassessment) Medical Decision Making Patient returning to the emergency department for recheck of epistaxis. Patient was seen in the emergency department yesterday evening and Rhino Rocket placed. Rhino Rocket fell out and had a return of bleeding with this incident. Bleeding has since stopped but patient wanted to be rechecked. Patient denies any pain discomfort or other symptoms. Physical exam shows dried blood to the left nare, no obvious continued bleeding, exam otherwise unremarkable. Given that bleeding has stopped we will plan on cleaning patient's face and observing for any return of symptoms. At this time I do not feel that any interventions are required given resolution of epistaxis. Patient informed not to blow his nose, touch his nose, or rub his nose. Rechecked on patient and he had actually started to blow his nose. No further epistaxis has occurred. It was recommended that he not blow or wipe his nose for the next 2 to 3 days but given no further return of epistaxis I do not feel that any further interventions are needed except for close monitoring and return precautions. After discussion of diagnosis and plan of care patient and family member has no further needs, questions, or concerns and states clear understanding to return to the emergency department for any worsening symptoms. This documentation was generated using [email or web address] dictation system, please disregard any oddities of phrase or misspellings. HPI General Mode of arrival: ambulatory . Date/Time Provider Initiated Documentation: 12/06/21 08:46 . Limitations to Documentation: physical limitation (hard of hearing) . Information obtained by: patient, family, RN notes reviewed and old records reviewed . History of Present Illness 86 year old M presents to the emergency department with the chief complaint of Epistaxis, described as similar to prior episodes, Quality is described as other (Denies pain or discomfort), and is localized to the left (nare). Patient reports no radiation. Patient started experiencing this day(s) (1) and it has been intermittent and now resolved. No relieving factors improve symptom(s), No exacerbating factors reported . Patient notes no other symptoms.. Patient did receive the following treatments prior to arrival, other (Rhino Rocket that fell out) Related Data Home Medications Medication Instructions Recorded Confirmed acetaminophen 650 mg 650 mg PO Q12H 03/05/21 12/06/21 tablet,extended release (Tylenol 8 Hour) metoprolol succinate 25 mg 25 mg PO DAILY #90 tabs 04/23/21 12/06/21 tablet,extended release 24 hr tramadol 50 mg tablet 50 mg PO BID PRN pain #30 tabs 06/04/21 12/06/21 valsartan 80 mg tablet 80 mg PO DAILY #30 tabs 06/22/21 12/06/21 rivaroxaban 20 mg tablet (Xarelto) 20 mg PO DAILY #30 tabs 10/12/21 12/06/21 furosemide 20 mg tablet 20 mg PO DAILY PRN edema #180 tabs 10/15/21 12/06/21 cephalexin 500 mg tablet 500 mg PO Q8H #10 tabs 12/06/21 12/06/21 Previous Rx's Medication Instructions Recorded metoprolol succinate 25 mg 25 mg PO DAILY #90 tabs 04/23/21 tablet,extended release 24 hr tramadol 50 mg tablet 50 mg PO BID PRN pain #30 tabs 06/04/21 valsartan 80 mg tablet 80 mg PO DAILY #30 tabs 06/22/21 rivaroxaban 20 mg tablet (Xarelto) 20 mg PO DAILY #30 tabs 10/12/21 furosemide 20 mg tablet 20 mg PO DAILY PRN edema #180 tabs 10/15/21 cephalexin 500 mg tablet 500 mg PO Q8H #10 tabs 12/06/21 Allergies Allergy/AdvReac Type Severity Reaction Status Date / Time No Known Allergies Allergy Verified 12/06/21 08:54 General Stated Complaint: Epistaxis RYAN: 4 Review of Systems Constitutional Constitutional: Denies chills, Denies fever(s), Denies headache(s) and Denies malaise ENT Ears, Nose, Mouth, and Throat: Reports as per HPI, Denies otalgia, Denies headache(s), Reports epistaxis and Denies nasal trauma Cardiovascular Cardiovascular: Denies chest pain and Denies dyspnea Respiratory Respiratory: Denies dyspnea Gastrointestinal Gastrointestinal: Denies abdominal pain, Denies nausea and Denies vomiting Integumentary/Breasts Skin/Breast: Denies unusual bruising Neurologic Neurologic: Denies headache(s) Hematologic/Lymphatic Hematologic/Lymphatic: Denies easy bleeding and Denies easy bruising PFSH All Active Problems (Updated 12/06/21 @ 10:14 by Jefe Rubio NP) Raised prostate specific antigen (Acute) Shoulder pain (Acute) right shoulder; surgery in 1981; 2005; atrophy Epistaxis (Acute) Lesion of skin of face (Acute) Constipation (Acute) Low back pain associated with a spinal disorder other than radiculopathy or spinal stenosis (Acute) Spinal stenosis of lumbar region (Acute) Edema (Acute) Hip pain (Acute) Prediabetes (Acute) Polyp of colon (Chronic 05/26/03) tubular adenoma Rosacea (Chronic) 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) Medical History Atrial fibrillation Benign prostatic hyperplasia CHF (congestive heart failure) 02/2021- EF 30-40% Coronary atherosclerosis 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 08/2020- echo [facility] [place] normal with EF 63%- 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 06/16- now seeing Dr Guillen Depressive disorder Hypertension Primary oral squamous cell carcinoma 2019- removed [facility] [place] Ventricular arrhythmia Surgical History 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, followed by [facility] [place] at [facility], generator replaced 12/15/09, [facility] History of shoulder surgery Family History Mother Personal history of malignant neoplasm Father Heart disease [place] Sister Personal history of malignant neoplasm Brother Personal history of malignant neoplasm STOMACH Grandfather Heart disease Grandfather Personal history of malignant neoplasm Grandmother Stroke Grandmother Personal history of malignant neoplasm Social History Smoking/Tobacco Use Status: Current every day Tobacco Type: smokeless tobacco Tobacco: How many years used: 70 Smokeless tobacco user: chewing tobacco Quit status: considering quitting Smoking risk assessment performed?: Yes Alcohol Intake: current Alcohol Intake frequency: a few times a month Drug use: Never Substance use type: does not use Household members: spouse Housing: house current occupation: Retired Pets and animals: Yes Pets and animals: dog(s) Sexually active: No Do you think of yourself as: straight/heterosexual Current gender identity: male What is your relationship status?: How often do you talk on the phone with friends or family?: twice per week How often do you attend protestant or roman catholic services?: 1-3 times per year Do you belong to any clubs or organized social groups?: no Panel score (0-1 are the most socially isolated patients): 1 What type of physical activity do you participate in: none Seatbelt use: sometimes Helmet use: Yes Helmet use: sometimes Drive intox or ride w/intox hack driver: No Do you feel safe at home: Yes Do you feel safe in your relationship?: Yes Exam Const General: cooperative, no acute distress and not ill appearing Orientation: alert and awake [facility] Head: normal to inspection, normocephalic and atraumatic Ears: hearing grossly normal bilaterally and external ears normal General nose exam: external nose normal, nares normal and epistaxis on the left dried blood present and source not visualized; no active bleeding Face and sinus: normal facial exam Mouth: oral mucosae normal and moist mucous membranes Throat: posterior oropharynx normal Resp Effort & Inspection: normal respiratory effort, able to speak in complete sente nces and no respiratory distress Cardio Rate: regular rate Rhythm: regular rhythm Skin General skin exam: no rashes or lesions noted Neuro General: patient alert, patient awake and moves all extremities Course Vital Signs Vital signs: Vital Signs Temperature 36.9 C 12/06/21 08:49 Pulse 86 12/06/21 08:49 Respiratory Rate 16 12/06/21 08:49 Blood Pressure 179/88 H 12/06/21 08:49 Pulse Oximetry 98 12/06/21 08:49 Temperature 36.9 C 12/06/21 08:49 Pulse 86 12/06/21 08:49 Respiratory Rate 16 12/06/21 08:49 Respiratory Effort 12/06/21 08:55 Blood Pressure 179/88 H 12/06/21 08:49 Pulse Oximetry 98 12/06/21 08:49 Oxygen Delivery Method Room Air 12/06/21 08:49 Oxygen Flow Rate 0 12/06/21 08:49 Pain Level 0 12/06/21 08:49
[2021-12-06 10:27] VITALS: BP 179/88; PULSE 86; RESP 16; TEMP 36.9; O2SAT 98
== END 2021-12-06 10:27 | disposition home or self-care (01) ==
PROVIDERS: Emergency Provider Nurse Practitioner Family; PCP Nurse Practitioner
DX: R04.0 Epistaxis (principal); Z79.01 Long term (current) use of anticoagulants
CPT/HCPCS: 99281

== ENCOUNTER 2021-12-13 05:16 | Emergency (ER) | payer MEDICARE, SELFPAY ==
[2021-12-13 05:09] VITALS: BP 185/91; PULSE 81; RESP 16; TEMP 36.5; O2SAT 98
--- NOTE | 2021-12-13 05:25 | ED.GENADUL_ITS ---
Discharge Plan Disposition Patient Disposition: HOME Condition: Improving Discharge Details Chief Complaint: Epistaxis Clinical Impression: Epistaxis Primary Care Provider: Zee Pepe ED Provider: Romeo Adams Home Meds and New Rx's Prescriptions: No Action furosemide 20 mg tablet 20 mg PO DAILY PRN (Reason: edema) Qty: 180 4RF acetaminophen [Tylenol 8 Hour] 650 mg tablet extended release 650 mg PO Q12H metoprolol succinate 25 mg tablet extended release 24 hr 25 mg PO DAILY Qty: 90 3RF tramadol 50 mg tablet 50 mg PO BID PRN (Reason: pain) Qty: 30 1RF valsartan 80 mg tablet 80 mg PO DAILY Qty: 30 7RF Xarelto 20 mg tablet 20 mg PO DAILY Qty: 30 0RF Rx Instructions: must administer with evening meal cephalexin 500 mg tablet 500 mg PO Q8H Qty: 10 0RF Discharge Instructions Instructions: Nosebleed (ED) Additional Instructions: Please be seen by your primary care physician and a entry level chemist. Please return to the emergency department for worsening bleeding. Over the next day please do not blow your nose. If you need to cough or sneeze do so out of your mouth. Medical Decision Making 86-year-old male presents with atraumatic left naris epistaxis. Patient is on rivaroxaban. Hemodynamically stable alert oriented. Pressure device in place does not seem to be helping. Will atomized TXA as well as Afrin and reapply pressure. If this does not work will instill Rhino Rocket. Bleed appears to be anterior coming from left nares only. No evidence of posterior bleed. Close reassessment of patient disposition pending control of epistaxis. 06: 05 after TXA and Afrin was let to sit with pressure device, pressure device was removed, bleeding seems to be slowed. Will observe patient for some time to assess for rebleeding. If rebleeds will place Rhino Rocket. 06: 52 epistaxis is now hemostatic. Patient is going to talk to his entry level chemist about his recurrent nosebleeds to discuss his anticoagulation HPI General Date/Time Provider Initiated Documentation: 12/13/21 05:21 . HPI Narrative: 86-year-old male history of prior epistaxis, on rivaroxaban. Atraumatic left naris bleed. Related Data Home Medications Medication Instructions Recorded Confirmed acetaminophen 650 mg 650 mg PO Q12H 09/09/21 06/12/22 tablet,extended release (Tylenol 8 Hour) metoprolol succinate 25 mg 25 mg PO DAILY #90 tabs 04/23/21 12/06/21 tablet,extended release 24 hr tramadol 50 mg tablet 50 mg PO BID PRN pain #30 tabs 06/04/21 12/06/21 valsartan 80 mg tablet 80 mg PO DAILY #30 tabs 06/22/21 12/06/21 rivaroxaban 20 mg tablet (Xarelto) 20 mg PO DAILY #30 tabs 10/12/21 12/06/21 furosemide 20 mg tablet 20 mg PO DAILY PRN edema #180 tabs 10/15/21 12/06/21 cephalexin 500 mg tablet 500 mg PO Q8H #10 tabs 12/06/21 12/06/21 Previous Rx's Medication Instructions Recorded metoprolol succinate 25 mg 25 mg PO DAILY #90 tabs 04/23/21 tablet,extended release 24 hr tramadol 50 mg tablet 50 mg PO BID PRN pain #30 tabs 06/04/21 valsartan 80 mg tablet 80 mg PO DAILY #30 tabs 06/22/21 rivaroxaban 20 mg tablet (Xarelto) 20 mg PO DAILY #30 tabs 10/12/21 furosemide 20 mg tablet 20 mg PO DAILY PRN edema #180 tabs 10/15/21 cephalexin 500 mg tablet 500 mg PO Q8H #10 tabs 12/06/21 Allergies Allergy/AdvReac Type Severity Reaction Status Date / Time No Known Allergies Allergy Verified 12/06/21 08:54 General Stated Complaint: Epistaxis RYAN: 3 Review of Systems Narrative: Review of Systems Constitutional: negative Eyes: negative ENT: Epistaxis Cardiovascular: negative Respiratory: negative Gastrointestinal: negative : negative Musculoskeletal: negative Skin: negative Neurologic: negative Psych: negative PFSH All Active Problems (Updated 12/13/21 @ 06:54 by Romeo Adams MD) Epistaxis (Acute) Raised prostate specific antigen (Acute) Shoulder pain (Acute) right shoulder; surgery in 1981; 2005; atrophy Epistaxis (Acute) Lesion of skin of face (Acute) Constipation (Acute) Low back pain associated with a spinal disorder other than radiculopathy or spinal stenosis (Acute) Spinal stenosis of lumbar region (Acute) Edema (Acute) Hip pain (Acute) Prediabetes (Acute) Polyp of colon (Chronic 05/26/03) tubular adenoma Rosacea (Chronic) 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, generator replaced 12/15/09, [facility] History of shoulder surgery Family History Mother Personal history of malignant neoplasm Father Heart disease [place] Sister Personal history of malignant neoplasm Brother Personal history of malignant neoplasm STOMACH Grandfather Heart disease Grandfather Personal history of malignant neoplasm Grandmother Stroke Grandmother Personal history of malignant neoplasm Social History Smoking/Tobacco Use Status: Current every day Tobacco Type: smokeless tobacco Tobacco: How many years used: 70 Smokeless tobacco user: chewing tobacco Quit status: considering quitting Smoking risk assessment performed?: Yes Alcohol Intake: current Alcohol Intake frequency: a few times a month Drug use: Never Substance use type: does not use Household members: spouse Housing: house current occupation: Retired Pets and animals: Yes Pets and animals: dog(s) Sexually active: No Do you think of yourself as: straight/heterosexual Current gender identity: male What is your relationship status?: How often do you talk on the phone with friends or family?: twice per week How often do you attend orthodoxy or islam services?: 1-3 times per year Do you belong to any clubs or organized social groups?: no Panel score (0-1 are the most socially isolated patients): 1 What type of physical activity do you participate in: none Seatbelt use: sometimes Helmet use: Yes Helmet use: sometimes Drive intox or ride w/intox sprinkling truck driver: No Do you feel safe at home: Yes Do you feel safe in your relationship?: Yes Exam Narrative Exam Narrative: Physical Examination General: alert, awake, cooperative, resting comfortably, no acute distress HEENT: Epistaxis from left naris, anteriorly Neck: supple, trachea midline; full ROM Chest: normal to inspection Respiratory: normal respiratory effort, speaking in full sentences, clear to auscultation, no wheezing, rales or rhonchi Cardiac: regular rate, regular rhythm, S1S2 intact, no murmurs rubs or gallops GI: abdomen soft, non-tender, non-distended; no palpable mass or hepatosplenomegaly Skin: no lesions, rashes or trauma appreciated Neuro: AAOx3, normal speech, moving all extremities Psych: Appropriate mood and affect Course Vital Signs Vital signs: Vital Signs Temperature 36.5 C 12/13/21 05:09 Pulse 81 12/13/21 05:09 Respiratory Rate 16 12/13/21 05:09 Blood Pressure 185/91 H 12/13/21 05:09 Pulse Oximetry 98 12/13/21 05:09 Temperature 36.5 C 12/13/21 05:09 Temperature Source Skin 12/13/21 05:09 Pulse 81 12/13/21 05:09 Respiratory Rate 16 12/13/21 05:09 Respiratory Effort Non-Labored 12/13/21 05:23 Blood Pressure 185/91 H 12/13/21 05:09 Blood Pressure Position Sitting 12/13/21 05:09 Pulse Oximetry 98 12/13/21 05:09 Oxygen Delivery Method Room Air 12/13/21 05:09 Oxygen Flow Rate 0 12/13/21 05:09 Pain Level 0 12/13/21 05:09
[2021-12-13] MEDS: Tranexamic Acid 1,000 MG/10 ML VIAL 500 MG NS (05:31)
[2021-12-13] MEDS: Oxymetazolone 0.05% SPRAY 15 ML BTL NS (06:32)
[2021-12-13 09:18] VITALS: BP 188/81; PULSE 109; RESP 18; TEMP 36; O2SAT 99
== END 2021-12-13 09:49 | disposition home or self-care (01) ==
PROVIDERS: Emergency Provider Student in an Organized Health Care Education/Training Program; PCP Nurse Practitioner
DX: R04.0 Epistaxis (principal); Z79.01 Long term (current) use of anticoagulants
CPT/HCPCS: 30903; 80053; 86900; 86901; 85025; 85610; 85730

== ENCOUNTER 2021-12-13 09:44 | Emergency (ER) | payer MEDICARE, SELFPAY ==
[2021-12-13] VITALS (33 sets, daily range): BP systolic 129–188; BP diastolic 53–91; PULSE 70–109; RESP 12–31; TEMP 36–36.8; O2SAT 95–100
[2021-12-13] MEDS: Metoprolol CR 25 MG TABCR PO (10:02)
--- NOTE | 2021-12-13 10:12 | ED.GENADUL_ITS ---
Discharge Plan Disposition Patient Disposition: HOME Condition: Stable Discharge Details Clinical Impression: Recurrent epistaxis, Hypertension Primary Care Provider: Zee Pepe ED Provider: Beltran Oshea Home Meds and New Rx's Prescriptions: Continued furosemide 20 mg tablet 20 mg PO DAILY PRN (Reason: edema) Qty: 180 4RF acetaminophen [Tylenol 8 Hour] 650 mg tablet extended release 650 mg PO Q12H tramadol 50 mg tablet 50 mg PO BID PRN (Reason: pain) Qty: 30 1RF valsartan 80 mg tablet 80 mg PO DAILY Qty: 30 7RF cephalexin 500 mg tablet 500 mg PO Q8H Qty: 10 0RF Changed metoprolol succinate 25 mg tablet extended release 24 hr 50 mg PO DAILY Qty: 90 3RF Held Xarelto 20 mg tablet 20 mg PO DAILY Qty: 30 0RF Hold Instructions: Resume on 12/15/21. Rx Instructions: must administer with evening meal Discharge Instructions Instructions: Nosebleed (ED), Hypertension (ED) Additional Instructions: Keep the nasal packing in place- please do not touch it. Do not sneeze. Do not blow your nose Please follow-up with director of scientific research in 3 days for packing removal and reassessment. Please hold your blood thinner Xarelto tomorrow and restart Tuesday. Please contact your primary care physician to arrange follow-up. Call tomorrow to arrange timely follow-up for later this week. It is important that you monitor your blood pressure at home and keep a record of at least twice daily measurements. Discussed change in antihypertensive medication with your doctor. Additional changes may need to be made if blood pressure remains elevated. Return to the ER immediately for any worsening or new concerning symptoms. Referrals: [facility] [Provider Group] Zee Pepe MAINFRAME SYSTEMS PROGRAMMER [Primary Care Provider] - Discharge Data Discharge Date/Time-TO BE ENTERED AT DEPARTURE: 12/13/21 13:29 Medical Decision Making 1020 --86-year-old male here with recurrent epistaxis left nare, oozing around 7.5cm rapid Rhino. I was able to advance the nasal packing and reinflate the balloon with slightly more volume. Bleeding has stopped. Patient is hypertensive. He notes he takes his antihypertensives at night. I will give labetalol 10 mg IV for immediate reduction in blood pressure and metoprolol CR 25 mg PO. Consider anemia given recurrent and persistent bleeding failure will check CBC. 1130 --labs reviewed and nondiagnostic. No anemia noted. Patient was reassessed and blood pressure significantly improved. Continues to have no bleeding. Plan to observe here in the emerged part for next couple hours to ensure continued hemostasis and stable blood pressure. 1250 --patient reassessed and continues to have no bleeding. Resting comfortably. Blood pressure improved. Plan will be to increase his extended release metoprolol to from 25 to 50 mg d aily. I will ask care management assist in arranging timely follow-up early this week with director of scientific research as well as primary care for blood pressure reassessment. HPI General Mode of arrival: ambulatory . Date/Time Provider Initiated Documentation: 12/13/21 09:50 . Limitations to Documentation: no limitations . Information obtained by: patient . HPI Narrative: 86-year-old male with history of coronary artery disease, CHF, A. fib, hypertension, on rivaroxaban, metoprolol extended release and valsartan which he takes at night, here with recurrent epistaxis. Patient woke up this morning around 3 AM with nosebleed from left nare. He was seen here in the emergency department for persistent bleeding this morning and was treated with atomization of TXA and Afrin. Bleeding did stop temporarily and then recurred and a rapid Rhino 7.5 was placed left nare. Bleeding had stopped and he was discharged home. Unfortunately after being home he started to have recurrent oozing from his left nare and also spit up some blood. He continues to have some light oozing from left nare. Of note, patient had similar epistaxis from left nare about a week ago and had nasal packing placed at that time which was subsequently removed. He is yet to follow-up with director of scientific research. Related Data Home Medications Medication Instructions Recorded Confirmed acetaminophen 650 mg 650 mg PO Q12H 03/05/21 12/13/21 tablet,extended release (Tylenol 8 Hour) tramadol 50 mg tablet 50 mg PO BID PRN pain #30 tabs 06/04/21 12/13/21 valsartan 80 mg tablet 80 mg PO DAILY #30 tabs 06/22/21 12/13/21 rivaroxaban 20 mg tablet (Xarelto) 20 mg PO DAILY #30 tabs 10/12/21 12/13/21 furosemide 20 mg tablet 20 mg PO DAILY PRN edema #180 tabs 10/15/21 12/13/21 cephalexin 500 mg tablet 500 mg PO Q8H #10 tabs 12/06/21 12/13/21 metoprolol succinate 25 mg 50 mg PO DAILY #90 tabs 12/13/21 12/13/21 tablet,extended release 24 hr Previous Rx's Medication Instructions Recorded tramadol 50 mg tablet 50 mg PO BID PRN pain #30 tabs 06/04/21 valsartan 80 mg tablet 80 mg PO DAILY #30 tabs 06/22/21 rivaroxaban 20 mg tablet (Xarelto) 20 mg PO DAILY #30 tabs 10/12/21 furosemide 20 mg tablet 20 mg PO DAILY PRN edema #180 tabs 10/15/21 cephalexin 500 mg tablet 500 mg PO Q8H #10 tabs 12/06/21 metoprolol succinate 25 mg 50 mg PO DAILY #90 tabs 12/13/21 tablet,extended release 24 hr Allergies Allergy/AdvReac Type Severity Reaction Status Date / Time No Known Allergies Allergy Verified 12/13/21 10:51 General Stated Complaint: Epistaxis RYAN: 3 Review of Systems All systems reviewed & are unremarkable except as noted in HPI and below Constitutional Constitutional: Denies fever(s) ENT Ears, Nose, Mouth, and Throat: Reports as per HPI PFSH All Active Problems Epistaxis (Acute) Recurrent epistaxis (Acute) Hypertension (Chronic) Nasal pain (Acute) Raised prostate specific antigen (Acute) Shoulder pain (Acute) right shoulder; surgery in 1981; 2005; atrophy Epistaxis (Acute) Lesion of skin of face (Acute) Constipation (Acute) Low back pain associated with a spinal disorder other than radiculopathy or spinal stenosis (Acute) Spinal stenosis of lumbar region (Acute) Edema (Acute) Hip pain (Acute) Prediabetes (Acute) Polyp of colon (Chronic 05/26/03) tubular adenoma Rosacea (Chronic) 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) Medical History Atrial fibrillation Benign prostatic hyperplasia CHF (congestive heart failure) 02/2021- EF 30-40% Coronary atherosclerosis of [place] coronary vessel 08/2020- echo [facility] [place] normal with EF 63%- Binder Stripper Hand Parker Arteaga 06/16- now seeing Dr Guillen Depressive disorder Hypertension 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[facility] [place] Ventricular arrhythmia Surgical History 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, followed by [facility] [place] at [facility], generator replaced 12/15/09, RH History of shoulder surgery Family History Mother Personal history of malignant neoplasm Father Heart disease [place] Sister Personal history of malignant neoplasm Brother Personal history of malignant neoplasm STOMACH Grandfather Heart disease Grandfather Personal history of malignant neoplasm Grandmother Stroke Grandmother Personal history of malignant neoplasm Social History Smoking/Tobacco Use Status: Current every day Tobacco Type: smokeless tobacco Tobacco: How many years used: 70 Smokeless tobacco user: chewing tobacco Quit status: considering quitting Smoking risk assessment performed?: Yes Alcohol Intake: current Alcohol Intake frequency: a few times a month Drug use: Never Substance use type: does not use Household members: spouse Housing: house current occupation: Retired Pets and animals: Yes Pets and animals: dog(s) Sexually active: No Do you think of yourself as: straight/heterosexual Current gender identity: male What is your relationship status?: How often do you talk on the phone with friends or family?: twice per week How often do you attend confucianism or restorationist services?: 1-3 times per year Do you belong to any clubs or organized social groups?: no Panel score (0-1 are the most socially isolated patients): 1 What type of physical activity do you participate in: none Seatbelt use: sometimes Helmet use: Yes Helmet use: sometimes Drive intox or ride w/intox regional driver: No Do you feel safe at home: Yes Do you feel safe in your relationship?: Yes Exam Const General: cooperative and no acute distress [facility] General nose exam: other (lt nare packing intact, oozing blood around ) Mouth: moist mucous membranes Throat: postnasal drainage (blood clot) Eyes Conjunctivae: normal conjunctivae Sclera: normal sclerae Resp Auscultation: clear to auscultation bilaterally, no rales, no rhonchi and no wheezes Cardio Rate: regular rate and not tachycardic Rhythm: regular rhythm Neuro General: patient alert, patient awake and tone normal Course Vital Signs Vital signs: Vital Signs Temperature 36.0 C L 12/13/21 09:51 Pulse 109 H 12/13/21 09:51 Respiratory Rate 18 12/13/21 09:51 Blood Pressure 188/81 H 12/13/21 09:51 Pulse Oximetry 99 12/13/21 09:51 Temperature 36.0 C L 12/13/21 09:51 Temperature Source Oral 12/13/21 09:51 Pulse 109 H 12/13/21 09:51 Respiratory Rate 18 12/13/21 09:51 Blood Pressure 188/81 H 12/13/21 09:51 Blood Pressure Position Sitting 12/13/21 09:51 Pulse Oximetry 99 12/13/21 09:51 Oxygen Delivery Method Room Air 12/13/21 09:51 Oxygen Flow Rate 0 12/13/21 09:51 Pain Level 0 12/13/21 09:51
[2021-12-13 10:21] LABS: Abs Immature Grans 0.25 10^3/uL (0.0-0.06); Absolute Eosinophil Count 0.23 10^3/uL (0.0-0.7); Absolute Lymphocyte Count 1.99 10^3/uL (1.2-3.4); Absolute Monocyte Count 0.96 10^3/uL (0.1-0.8); Absolute Neutrophil Count 8.09 10^3/uL (1.2-6.7); Basophils % 1.7; HCT 42.1 % (40.0-50.0); HGB 13.5 g/dL (13.5-17.5); Immature Grans % 2.1; MCHC 32.1 % (32.0-36.0); MCV 91 fL (80-95); MPV 11.4 fL (8.0-11.0); Monocytes % 8.2; Platelet Count 235 10^3/uL (130-400); RBC 4.65 10^6/uL (4.36-5.78); RDW 14.8 % (11.8-14.1); RDW-SD 49.1 fL; WBC 11.72 10^3/uL (4.4-10.8)
[2021-12-13] MEDS: Labetalol 100 MG/20 ML VIAL 10 MG IVP (10:36)
[2021-12-13] MEDS: Normal Saline Flush 10 ML SYR IVP (10:38)
[2021-12-13 10:58] LABS: INR 1.4 (0.9-1.1); PTT Activated 39.4 sec (21.0-27.5); Prothrombin Time 14.1 sec (9.3-11.0)
[2021-12-13 11:02] LABS: ALT 18 U/L (16-63); AST 22 U/L (15-37); Albumin 3.5 g/dL (3.4-5.0); Alkaline Phosphatase 61 U/L (46-116); Anion Gap 9.5 mmol/L (3-11); BUN 33 mg/dL (7-18); Bilirubin, Total 0.7 mg/dL (0.2-1.0); CO2 25.5 mmol/L (21.0-32.0); CREATININE 1.4 mg/dL (0.70-1.30); Calcium 8.4 mg/dL (8.5-10.1); Chloride 107 mmol/L (98-107); Estimated GFR 48.16 (mL/min/1.73m2); Glucose 115 mg/dL (74-106); Sodium 142 mmol/L (136-145); Total Protein 7.6 g/dL (6.4-8.2)
--- NOTE | 2021-12-14 00:57 | NUR.NOTE ---
Referral faxed to PCP and ENT to f/u this week for epistaxisNursing Note:
== END 2021-12-13 13:29 | disposition home or self-care (01) ==
PROVIDERS: Emergency Provider Student in an Organized Health Care Education/Training Program; PCP Nurse Practitioner
DX: R04.0 Epistaxis (principal); I10 Essential (primary) hypertension
CPT/HCPCS: 30901; 36415; 80053; 86850; 86900; 86901; 96374; 85025; 85610; 85730

== ENCOUNTER 2021-12-14 07:34 | Emergency (ER) | payer MEDICARE, SELFPAY ==
[2021-12-14 07:41] VITALS: BP 123/55; PULSE 88; RESP 14; TEMP 37; O2SAT 94
--- NOTE | 2021-12-14 08:35 | ED.GENADUL_ITS ---
Discharge Plan Disposition Patient Disposition: HOME Condition: Stable Discharge Details Clinical Impression: Nasal pain Primary Care Provider: Zee Pepe ED Provider: Karyna Oshea Home Meds and New Rx's Prescriptions: Continued furosemide 20 mg tablet 20 mg PO DAILY PRN (Reason: edema) Qty: 180 4RF acetaminophen [Tylenol 8 Hour] 650 mg tablet extended release 650 mg PO Q12H tramadol 50 mg tablet 50 mg PO BID PRN (Reason: pain) Qty: 30 1RF valsartan 80 mg tablet 80 mg PO DAILY Qty: 30 7RF Xarelto 20 mg tablet 20 mg PO DAILY Qty: 30 0RF Hold Instructions: Resume on 12/15/21. Rx Instructions: must administer with evening meal cephalexin 500 mg tablet 500 mg PO Q8H Qty: 10 0RF metoprolol succinate 25 mg tablet extended release 24 hr 50 mg PO DAILY Qty: 90 3RF Discharge Instructions Instructions: Nosebleed (ED) Additional Instructions: Please leave your nasal packing in place. Please return immediately to the emergency department if you develop any new or worsening symptoms, if your condition does not improve as expected, or if you become otherwise concerned. It is extremely important that you attend your scheduled follow-up visit with Dr. Blackburn of Ear, Nose, and Throat this December 17 at 7:30 in the morning. It is extremely important that you call soon as possible to make an appointment to be seen in follow-up for this visit by your primary care doctor. Referrals: Zee Pepe, KIRAN [Primary Care Provider] - Miguel Angel Blackburn MD [ [facility] STAFF PHYSICIAN] - Discharge Data Discharge Date/Time-TO BE ENTERED AT DEPARTURE: 12/14/21 08:58 Medical Decision Making Bebe Jones is an 86-year-old man with a history of recurrent epistaxis, hypertension, A. fib on rivaroxaban, CHF, coronary artery disease presenting to the emergency department with nasal pain. Patient is accompanied by his [id number] who also present history (patient is quite hard of hearing). Patient reports that he was here yesterday for nosebleed and had a Rhino Rocket placed left nare (per record review 7.5 cm Rhino Rocket placed). Patient reports that he has had no further bleeding but has had significant pain in his nose ever since rocket was inflated. He reports that he feels otherwise well and in his usual health: No other pain, cough, shortness of breath, fever, vomiting, diarrhea, numbness, weakness. Has been eating and drinking without issue. Patient reports that he would like to have packing removed if possible due to level of pain, states that he was unable to get any sleep last night because of pain. He reports the pain has not changed since Rhino Rocket was placed in the emergency department yesterday. 2 cc air aspirated from Rhino Rocket, patient reports immediate relief of pain, reports some continued fullness and mild discomfort in his nose. On exam he is well and nontoxic-appearing. There is no sign of continued epistaxis. No impending airway compromise. Follows exam/history at this time is not consistent with for sinus/nasal/facial infection, sepsis. I discussed patient presentation with Dr. Blackburn of otolaryngology, who states the patient is at high risk for rebleed given anticoagulation, would like patient to keep packing in place until 12/17. He states that he will see patient in his office on the morning of 12/17 at 7:30 AM for packing removal. I discussed this plan with patient and his family, they are amenable. Plan for Tylenol for nasal discomfort and return to the emergency department for worsening symptoms/as needed. Patient was observed after 2 seizure seizure removed from Rhino Rocket, no bleeding. I had a discussion with Patient regarding return to emergency department precautions, home care, and importance of outpatient follow-up. Pt verbalizes understanding of the plan and is amenable. Patient discharged to home with clear plan for outpatient follow-up. All questions were answered. Disposition decision was made weighing the risks and benefits of hospitalization versus outpatient treatment, the risk for further decompensation, and the patient's wishes., Medical Records Medical records reviewed: Yes I reviewed the patient's medical records. HPI General Mode of arrival: ambulatory . Date/Time Provider Initiated Documentation: 12/14/21 07:48 . Limitations to Documentation: no limitations . Information obtained by: patient, family, RN notes reviewed and old records reviewed . HPI Narrative: Bebe Jones is an 86-year-old man with a history of recurrent epistaxis, hypertension, A. fib on rivaroxaban, CHF, coronary artery disease presenting to the emergency department with nasal pain. Patient is accompanied by his [id number] who also present history (patient is quite hard of hearing). Patient reports that he was here yesterday for nosebleed and had a Rhino Rocket placed left nare (per record review 7.5 cm Rhino Rocket placed). Patient reports that he has had no further bleeding but has had significant pain in his nose ever since rocket was inflated. He reports that he feels otherwise well and in his usual health: No other pain, cough, shortness of breath, fever, vomiting, diarrhea, numbness, weakness. Has been eating and drinking without issue. Patient reports that he would like to have packing removed if possible due to level of pain, states that he was unable to get any sleep last night bec ause of pain. He reports the pain has not changed since Rhino Rocket was placed in the emergency department yesterday. Related Data Home Medications Medication Instructions Recorded Confirmed acetaminophen 650 mg 650 mg PO Q12H 03/05/21 12/13/21 tablet,extended release (Tylenol 8 Hour) tramadol 50 mg tablet 50 mg PO BID PRN pain #30 tabs 06/04/21 12/13/21 valsartan 80 mg tablet 80 mg PO DAILY #30 tabs 06/22/21 12/13/21 rivaroxaban 20 mg tablet (Xarelto) 20 mg PO DAILY #30 tabs 10/12/21 12/13/21 furosemide 20 mg tablet 20 mg PO DAILY PRN edema #180 tabs 10/15/21 12/13/21 cephalexin 500 mg tablet 500 mg PO Q8H #10 tabs 12/06/21 12/13/21 metoprolol succinate 25 mg 50 mg PO DAILY #90 tabs 12/13/21 12/13/21 tablet,extended release 24 hr Previous Rx's Medication Instructions Recorded tramadol 50 mg tablet 50 mg PO BID PRN pain #30 tabs 06/04/21 valsartan 80 mg tablet 80 mg PO DAILY #30 tabs 06/22/21 rivaroxaban 20 mg tablet (Xarelto) 20 mg PO DAILY #30 tabs 10/12/21 furosemide 20 mg tablet 20 mg PO DAILY PRN edema #180 tabs 10/15/21 cephalexin 500 mg tablet 500 mg PO Q8H #10 tabs 12/06/21 metoprolol succinate 25 mg 50 mg PO DAILY #90 tabs 12/13/21 tablet,extended release 24 hr Allergies Allergy/AdvReac Type Severity Reaction Status Date / Time No Known Allergies Allergy Verified 12/13/21 10:51 General Stated Complaint: Recheck RYAN: 4 Review of Systems Narrative: Constitutional: denies fevers Eyes: denies eye pain, vision changes ENT: denies ear pain, dental pain, sore throat, current nosebleed, reports nasal pain left nare at site of packing Cardiovascular: denies chest pain Respiratory: denies SOB, cough GI: denies abdominal pain, vomiting, diarrhea : denies flank pain MSK: denies back pain, neck pain, arthralgias, myalgias Skin: denies rash Neuro: denies headaches, numbness, weakness PFSH All Active Problems Epistaxis (Acute) Recurrent epistaxis (Acute) Hypertension (Chronic) Nasal pain (Acute) Raised prostate specific antigen (Acute) Shoulder pain (Acute) right shoulder; surgery in 1981; 2005; atrophy Epistaxis (Acute) Lesion of skin of face (Acute) Constipation (Acute) Low back pain associated with a spinal disorder other than radiculopathy or spinal stenosis (Acute) Spinal stenosis of lumbar region (Acute) Edema (Acute) Hip pain (Acute) Prediabetes (Acute) Polyp of colon (Chronic 05/26/03) tubular adenoma Rosacea (Chronic) 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) Medical History Atrial fibrillation Benign prostatic hyperplasia CHF (congestive heart failure) 02/2021- EF 30-40% Coronary atherosclerosis of [place] coronary vessel 08/2020- echo [facility] [place] normal with EF 63%- [employer] 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 Parker Arteaga 06/16- now seeing Dr Guillen Depressive disorder Hypertension 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[facility] [place] Ventricular arrhythmia Surgical History 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, followed by [facility] [place] at [facility], generator replaced 12/15/09, RH History of shoulder surgery Family History Mother Personal history of malignant neoplasm Father Heart disease ID Sister Personal history of malignant neoplasm Brother Personal history of malignant neoplasm STOMACH Grandfather Heart disease Grandfather Personal history of malignant neoplasm Grandmother Stroke Grandmother Personal history of malignant neoplasm Social History Smoking/Tobacco Use Status: Current every day Tobacco Type: smokeless tobacco Tobacco: How many years used: 70 Smokeless tobacco user: chewing tobacco Quit status: considering quitting Smoking risk assessment performed?: Yes Alcohol Intake: current Alcohol Intake frequency: a few times a month Drug use: Never Substance use type: does not use Household members: spouse Housing: house current occupation: Retired Pets and animals: Yes Pets and animals: dog(s) Sexually active: No Do you think of yourself as: straight/heterosexual Current gender identity: male What is your relationship status?: How often do you talk on the phone with friends or family?: twice per week How often do you attend jainism or restoration services?: 1-3 times per year Do you belong to any clubs or organized social groups?: no Panel score (0-1 are the most socially isolated patients): 1 What type of physical activity do you participate in: none Seatbelt use: sometimes Helmet use: Yes Helmet use: sometimes Drive intox or ride w/intox 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: No Do you feel safe at home: Yes Do you feel safe in your relationship?: Yes Exam Narrative Exam Narrative: Constitutional: well and [id number]-mymjldval, pleasant, conversing normally, quite hard of hearing HENT: head atraumatic/normocephalic/normal inspection, mucous membranes moist, nasal packing in place left nare, no epistaxis, oropharynx clear, no drooling, no pooling of secretions, normal voice Eyes: conjunctiva normal, sclera normal, pupils 3mm b/l Neck: no stridor, normal ROM, trachea midline Resp: normal work of breathing, speaking in full sentences Cardio: normal rate, normal rhythm Skin: warm, dry, normal color, no rash Neuro: alert, not altered, grossly non-focal, normal tone, normal ambulation Ext: no edema, moving all extremities equally Psych: normal mood, normal affect, normal behavior Course Vital Signs Vital signs: Vital Signs Temperature 37.0 C 12/14/21 07:41 Pulse 88 12/14/21 07:41 Respiratory Rate 14 12/14/21 07:41 Blood Pressure 123/55 L 12/14/21 07:41 Pulse Oximetry 94 12/14/21 07:41 Temperature 37.0 C 12/14/21 07:41 Pulse 88 12/14/21 07:41 Respiratory Rate 14 12/14/21 07:41 Respiratory Effort Non-Labored 12/14/21 07:46 Blood Pressure 123/55 L 12/14/21 07:41 Blood Pressure Position Sitting 12/14/21 07:41 Pulse Oximetry 94 12/14/21 07:41 Oxygen Delivery Method Room Air 12/14/21 07:41 Oxygen Flow Rate 0 12/14/21 07:41 Pain Level 8 12/14/21 07:41 PAWSS Have you Been Recently Intoxicated or Drunk Within the Last 30 days?: No Have you Ever Experienced Previous Episodes of Alcohol Withdrawal?: No Have you ever Experienced Withdrawal Seizures?: No Have you ever Experienced Delirium Tremens(DT)s?: No Have you ever undergone Alcohol Rehabilitation Treatment (i.e, inpt ot outpatient treatment programs)?: No Have you ever Experienced Blackouts?: No Have you ever Combined Alcohol with other Downers within the last 90 days?: No Have you ever Combined Alcohol with any other Substance of Abuse during the last 90 days?: No Positive Blood Alcohol level on Presentation? [PCS.BAL]: No Evidence of Increased Autonomic Activity (i.e. HR>120, tremor, sweating, agitation, nausea)?: No Result: 0
--- NOTE | 2021-12-14 08:47 | NUR.NOTE ---
Nursing Note: Dr Karyna Oshea spoke with Dr Blackburn and appt for December 17 @ [id number].
[2021-12-14 08:59] VITALS: PULSE 69; RESP 14; O2SAT 94
[2021-12-14] MEDS: Acetaminophen 325 MG TAB 650 MG PO (08:59)
== END 2021-12-14 08:58 | disposition home or self-care (01) ==
PROVIDERS: Emergency Provider Student in an Organized Health Care Education/Training Program; PCP Nurse Practitioner
DX: J34.89 Other specified disorders of nose and nasal sinuses (principal); I48.91 Unspecified atrial fibrillation; Z79.01 Long term (current) use of anticoagulants
CPT/HCPCS: 99282; 99283

== ENCOUNTER → 2022-01-27 09:18 | Outpatient (BNVA) | payer MEDICARE, SELFPAY | PROVIDERS: PCP Nurse Practitioner; Referring Provider Nurse Practitioner; Visit Provider Internal Medicine Cardiovascular Disease | DX: Z95.0 Presence of cardiac pacemaker (principal); I49.9 Cardiac arrhythmia, unspecified; I25.10 Atherosclerotic heart disease of native coronary artery without angina pectoris; I48.20 Chronic atrial fibrillation, unspecified; Z79.01 Long term (current) use of anticoagulants | CPT/HCPCS: 93005; 93280 ==

== ENCOUNTER 2022-01-27 09:20 | Outpatient (CLI) | payer MEDICARE, SELFPAY ==
--- NOTE | 2022-01-27 09:15 | RT.EKG_ITS ---
APPROVED REPORT Exam: Resting ECG Reason for Exam: pacer Patient Location: O HR:79 bpm ECG Measurements Heart Rate 79 AXIS AZ 58 P 0 QRSd 152 QRS 96 QT 416 T -85 QTc 477 Conclusion Ventricular-paced rhythm No further analysis attempted due to paced rhythm Baseline wander in lead(s) V2
== END 2022-01-27 09:21 | disposition home or self-care (01) ==
LOC: DI.CARD 09:20
PROVIDERS: PCP Nurse Practitioner; Visit Provider Internal Medicine Cardiovascular Disease
DX: I25.10 Atherosclerotic heart disease of native coronary artery without angina pectoris (principal); I49.9 Cardiac arrhythmia, unspecified; Z95.0 Presence of cardiac pacemaker
CPT/HCPCS: 93010

== ENCOUNTER → 2022-02-16 09:21 | Outpatient (BNVA) | payer MEDICARE, SELFPAY | PROVIDERS: PCP Nurse Practitioner; Visit Provider Internal Medicine Cardiovascular Disease | DX: I48.0 Paroxysmal atrial fibrillation (principal); I10 Essential (primary) hypertension; R06.02 Shortness of breath; Z95.0 Presence of cardiac pacemaker | CPT/HCPCS: 99214 ==

== ENCOUNTER 2022-02-22 01:52 | Outpatient (CLI) | payer MEDICARE, SELFPAY ==
--- NOTE | 2022-02-22 07:00 | DI.NM_ITS ---
APPROVED REPORT Exam: Pharmacologic Patient Location: Out-Patient Room/Bed: Stress Nurse: Tori Archibald RN Ordering Provider:ARTHUR DELGADO, Contact Number: BMI: 29.52 Baseline Rhythm: Ventricular Paced Indications: SHORTNESS OF BREATH Medical History Medical History: SOB, AFIB, Pre-diabetes, HFrEF, Spinal stenosis (low back pain), Smoker, Pacemaker, Ventricular arrhythmia, HTN, ASCVD, KASAAN Cardiac Medications: Metoprolol succinate, furosemide, valsartan, rivaroxaban Allergies: No known drug allergies Cardiac Risk Factors: CVD, HTN, DM (pre), Smoking Previous Cardiac Procedures: Pacemaker, unknown date of insertion Pretest Chest Pain Characteristics: No chest pain Exercise History: Indeterminate Lung Sounds: Clear to auscultation Heart Sounds: Regular Stress Test Details Test: Pharmacologic stress testing performed using 0.4 mg of regadenoson per 5 mL given IV over 10 s econds. Reason for pharmacologic stress test: ventricular pacing. Nuclear Acquisition: Rest Tc-99m/Stress Tc-99m 1 day Rest Isotope: Tc-99m Sestamibi. Dose: 9.5 Date: 02/22/2022 Injection Time: 1000 Stress Isotope: Tc-99m Sestamibi. Dose: 31 Date: 02/22/2022 Injection Time: 1114 HR Resting HR Supine: 67 bpm Max Heart Rate (APMHR): 135.048836 bpm Target HR (85% APMHR): 114.898919 bpm Max HR Achieved: 76 bpm % of APMHR: 56.30 Recovery HR: 60 bpm BP Resting BP Supine: 120/88 mmHg Max BP: 122/70 mmHg Recovery BP: 118/68 mmHg ECG Resting ECG: Sinus Rhythm, V paced Ectopy: None Stress ECG: Sinus Rhythm, V paced ST Change: No significant ST segment changes noted Arrhythmia: None Recovery ECG: Sinus Rhythm, V paced Recovery ST Change: No significant ST segment changes noted Recovery Arrhythmia: None Clinical Stress Symptoms: Dyspnea Rate Pressure Product: [id number] Stress ECG Conclusion 1. Resting electrocardiogram showed a ventricular paced rhythm 2. Patient underwent pharmacologic stress with regadenoson 3. Peak heart rate achieved was 56 percent of predicted for age 4. Electrocardiographic portion of the test was nondiagnostic due to inadequate heart rate and paced rhythm 5. See MPI report Stress Test Summary STAGE HR BP SpO2 Symptoms NOTES Supine 67 120/88 97% RA 1 min post Lexiscan injection 62 108/82 98% SOB 3 min post Lexiscan injection 61 122/70 SOB resolved. 6 min post Lexiscan injection 60 118/68 MPI Conclusion Normal myocardial perfusion without evidence of ischemia or prior infarction EF 49%, wall motion is normal Radiologist Interpretation Radiologist Interpretation by: Moiz Chavez MD Interpretation Date/Time: 02/22/2022 18:20:36
--- NOTE | 2022-02-22 09:49 | DI.RAD_ITS ---
Exam(s) XR CHEST 2V PA LATERAL EXAM: XR CHEST 2V PA LATERAL CLINICAL HISTORY: Shortness of breath, R06.02 TECHNIQUE: 2D digital imaging was performed of the chest. Three images were obtained. PA and later al views were obtained. COMPARISON: CR,XR XR PORTABLE CHEST AP from 03/03/2021 FINDINGS: MEDIASTINUM: Normal. HEART: Normal. PULMONARY VASCULATURE: Normal. LUNGS: No focal consolidating infiltrates. PLEURAL SPACE: No pleural effusion or pneumothorax. BONE:Within normal limits for the patient's age. OTHER FINDINGS:Pacing wires are stable in position. IMPRESSION: No acute pulmonary findings. DATA REPOSITORY: RADIATION DOSE DELIVERED:
[2022-02-22] MEDS: Regadenoson 0.4 MG/5 ML SYR IVP (11:17)
== END 2022-02-22 02:12 ==
PROVIDERS: PCP Nurse Practitioner; Visit Provider Internal Medicine Cardiovascular Disease
DX: R06.02 Shortness of breath (principal); I10 Essential (primary) hypertension
CPT/HCPCS: 78452; 93016; 93018; 71046; 93017; J2785

== ENCOUNTER → 2022-03-02 10:08 | Outpatient (BNVA) | payer MEDICARE, SELFPAY | PROVIDERS: PCP Nurse Practitioner; Visit Provider Internal Medicine Cardiovascular Disease | DX: R06.09 Other forms of dyspnea (principal); I48.20 Chronic atrial fibrillation, unspecified; I10 Essential (primary) hypertension; Z95.0 Presence of cardiac pacemaker | CPT/HCPCS: 99213 ==

== ENCOUNTER → 2022-04-28 10:24 | Outpatient (BNVA) | payer MEDICARE, SELFPAY | PROVIDERS: PCP Nurse Practitioner; Referring Provider Nurse Practitioner; Visit Provider Internal Medicine Cardiovascular Disease | DX: Z95.0 Presence of cardiac pacemaker (principal) | CPT/HCPCS: 93280 ==

== ENCOUNTER 2022-05-29 07:24 | Emergency (ER) | payer MEDICARE, SELFPAY ==
[2022-05-29 07:29] VITALS: BP 143/51; PULSE 63; RESP 18; TEMP 37; O2SAT 98
--- NOTE | 2022-05-29 08:30 | DI.RAD_ITS ---
Exam(s) XR ANKLE LT COMPLETE EXAM: XR ANKLE LT COMPLETE CLINICAL HISTORY: pain and swelling TECHNIQUE: COMPARISON: No exams were available for comparison FINDINGS: Four views were obtained. Ankle mortise is well maintained. There is no evidence of acute fracture or dislocation. IMPRESSION: RADIATION DOSE DELIVERED: Total DLP
[2022-05-29 08:54] LABS: Abs Immature Grans 0.27 10^3/uL (0.0-0.06); Absolute Basophil Count 0.19 10^3/uL (0.0-0.2); Absolute Eosinophil Count 0.28 10^3/uL (0.0-0.7); Absolute Lymphocyte Count 1.65 10^3/uL (1.2-3.4); Basophils % 1.6; Eosinophils % 2.4; HGB 13.7 g/dL (13.5-17.5); Immature Grans % 2.3; MCH 28.2 pg (27.0-33.0); MCHC 31.1 % (32.0-36.0); MCV 91 fL (80-95); MPV 9.7 fL (8.0-11.0); Monocytes % 9.3; Neutrophils % 70.4; Platelet Count 279 10^3/uL (130-400); RBC 4.86 10^6/uL (4.36-5.78); RDW 15.2 % (11.8-14.1); RDW-SD 50.2 fL; WBC 11.79 10^3/uL (4.4-10.8)
[2022-05-29 08:55] LABS: ESR 25 mm/hr (0-20)
[2022-05-29] MEDS: Acetaminophen 325 MG TAB 650 MG PO (08:58)
[2022-05-29 09:12] LABS: ALT 20 U/L (16-63); AST 20 U/L (15-37); Albumin 3.7 g/dL (3.4-5.0); Alkaline Phosphatase 73 U/L (46-116); BUN 28 mg/dL (7-18); Bilirubin, Total 0.6 mg/dL (0.2-1.0); C-Reactive Protein 0.49 mg/dL (0.0-0.3); CREATININE 1.8 mg/dL (0.70-1.30); Calcium 9.1 mg/dL (8.5-10.1); Chloride 103 mmol/L (98-107); Estimated GFR 36.43 (mL/min/1.73m2); Glucose 115 mg/dL (74-106); Potassium 5.2 mmol/L (3.5-5.1); Sodium 138 mmol/L (136-145); Total Protein 8.1 g/dL (6.4-8.2)
--- NOTE | 2022-05-29 10:00 | DI.VRAD_ITS ---
PROCEDURE INFORMATION: Exam: XR Left Ankle Exam date and time: 05/29/2022 8:51 AM Age: 86 years old Clinical indication: Pain; Ankle; Left.No history of trauma or recent surgery is provided. TECHNIQUE: Imaging protocol: Radiologic exam of the Left ankle. 4image(s) are provided. Views: 3 or more views. COMPARISON: No relevant prior studies available. FINDINGS: Bones/joints: There is some chronic well corticated calcification possibly degenerative or chronic posttraumatic inferior to the lateral malleolus as well as adjacent to the talus on the frontal oblique view medially. There is some marginal spurring at the Achilles insertion. No displaced fracture or dislocation is appreciated. Soft tissues: Unremarkable. No radiopaque foreign body, significant effusion or subcutaneous emphysema is appreciated. Vasculature: There is some atherosclerotic vascular calcifications appreciated. IMPRESSION: Osseous alignment is maintained with some chronic degenerative or chronic posttraumatic appearing changes.No displaced fracture or dislocation is appreciated. Dictated and Authenticated by: Osito Dejesus MD. Ordering:EMANUEL Crum MD
--- NOTE | 2022-05-29 10:22 | NUR.NOTE ---
pt with a referral to f/u with his primary on Tuesday for ankle pain and high potassium -ED -CL,FISCAL SERVICES MANAGER Nursing Note:
[2022-05-29] MEDS: predniSONE 20 MG TAB 40 MG PO (10:24)
--- NOTE | 2022-05-29 15:02 | W.ED.GENAD ---
Discharge Plan Disposition Patient Disposition: Home Condition: Stable Discharge Details Clinical Impression: Acute renal insufficiency, Acute ankle pain, Acute hyperkalemia Primary Care Provider: Chiqui Rueda ED Provider: Skyla Austin Home Meds and New Rx's Prescriptions: New prednisone 20 mg tablet 40 mg PO BID 4 Days Qty: 16 0RF Continued furosemide 20 mg tablet 20 mg PO DAILY PRN (Reason: edema) Qty: 180 4RF acetaminophen [Tylenol 8 Hour] 650 mg tablet extended release 650 mg PO Q12H melatonin 10 mg capsule 10 mg PO HS PRN Xarelto 15 mg tablet 15 mg PO DAILY Qty: 90 4RF Rx Instructions: must administer with evening meal metoprolol succinate 50 mg tablet extended release 24 hr 50 mg PO DAILY Qty: 90 4RF valsartan 80 mg tablet 80 mg PO DAILY Qty: 90 3RF Discharge Instructions Instructions: Leg Pain (ED) Additional Instructions: Take the prednisone as prescribed Take 40 mg instead of 80 mg of your valsartan for the next 2 days and have your potassium level rechecked and your creatinine rechecked with your doctor on Tuesday Use the boot for comfort and a walker to help you ambulate If your ankle becomes more swollen or red or you develop a fever you must return for reassessment to the emergency department Recommendation for 48-hour recheck You may take the oxycodone every 8-10 hours as needed for pain You may take half a tab to 1 complete tab, this medication may make you constipated and that is addictive, use caution, you should not operate a vehicle for 8 hours after taking this medication Referrals: Chiqui Rueda NP [Primary Care Provider] - 2 days Discharge Data Discharge Date/Time-TO BE ENTERED AT DEPARTURE: 05/29/22 10:25 Medical Decision Making pt with degenerativre changes on xray placed in a boot labs reassuring and inflammatory markers very slightly elevated placed on steroids and oxycodone prn, risk of addiction reviewed No clinical evidence of septic arthritis very low suspicion Will need 48-hour recheck Patient does have hyperkalemia, 5.2, ever so slightly over the threshold, will decrease valsartan to 40 mg with outpatient reassessment for this finding on Tuesday with recheck on Tuesday Prednisone prescription Patient will need his creatinine rechecked by his doctor is at increased from 1.4-1.8 He may also need adjustment of his Lasix at his PCPs discretion He has a walker at home Recheck in 48 hours recommended Discharged home in stable condition with stable vitals Medical Records Medical records reviewed: Yes I reviewed the patient's medical records. Lab Data Lab results reviewed: Yes I reviewed the patient's lab results. Sign Out No HPI General Date/Time Provider Initiated Documentation: 05/29/22 07:38. HPI Narrative: This 86-year-old male presents with left ankle pain that began this morning when patient awoke. He states it feels like his prior gouty flare. Denies any fever or chills. He states he has limited ability to place weight on the affected extremity secondary to discomfort. He denies any known trauma. Denies history of diabetes or immunosuppression. Denies any skin discoloration. Denies any calf pain or swelling. Related Data Home Medications Medication Instructions Recorded Confirmed acetaminophen 650 mg 650 mg PO Q12H 03/05/21 05/29/22 tablet,extended release (Tylenol 8 Hour) furosemide 20 mg tablet 20 mg PO DAILY PRN edema #180 tabs 10/15/21 05/29/22 metoprolol succinate 50 mg 50 mg PO DAILY #90 tabs 12/18/21 05/29/22 tablet,extended release 24 hr rivaroxaban 15 mg tablet (Xarelto) 15 mg PO DAILY #90 tabs 12/18/21 05/29/22 valsartan 80 mg tablet 80 mg PO DAILY #90 tabs 02/22/22 05/29/22 melatonin 10 mg capsule 10 mg PO HS PRN 04/10/22 05/29/22 prednisone 20 mg tablet 40 mg PO BID 4 days #16 tabs 05/29/22 Previous Rx's Medication Instructions Recorded furosemide 20 mg tablet 20 mg PO DAILY PRN edema #180 tabs 10/15/21 metoprolol succinate 50 mg 50 mg PO DAILY #90 tabs 12/18/21 tablet,extended release 24 hr rivaroxaban 15 mg tablet (Xarelto) 15 mg PO DAILY #90 tabs 12/18/21 valsartan 80 mg tablet 80 mg PO DAILY #90 tabs 02/22/22 prednisone 20 mg tablet 40 mg PO BID 4 days #16 tabs 05/29/22 Allergies Allergy/AdvReac Type Severity Reaction Status Date / Time No Known Allergies Allergy Verified 05/29/22 07:33 General Stated Complaint: Orthopedic RYAN: 4 Review of Systems All systems reviewed & are unremarkable except as noted in HPI and below PFSH All Active Problems (Updated 05/29/22 @ 10:18 by MADDISON Linn) Acute renal insufficiency (Acute) Acute ankle pain (Acute) Acute hyperkalemia (Acute) Erythema (Acute) Shortness of breath (Acute) Impacted cerumen, bilateral (Acute) History of epistaxis (Acute) Impairment of speech discrimination (Acute) Atrial fibrillation (Chronic) Raised prostate specific antigen (Acute) Shoulder pain (Acute) right shoulder; surgery in 1981; 2005; atrophy Constipation (Acute) Low back pain associated with a spinal disorder other than radiculopathy or spinal stenosis (Acute) Spinal stenosis of lumbar region (Acute) Edema (Acute) Hip pain (Acute) Prediabetes (Acute) Polyp of colon (Chronic 05/26/03) tubular adenoma Rosacea (Chronic) 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) Medical History Benign prostatic hyperplasia CHF (congestive heart failure) 02/2021- EF 30-40% Coronary atherosclerosis [place] coronary vessel 08[place]2020- [place] [facility] [place] 63%- 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 Parker Arteaga 06/16- now seeing Dr Guillen Depressive disorder Hypertension 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 Ventricular arrhythmia Surgical History 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, [place] [facility] [place] [facility], generator replaced 12/15/09, [facility] History of shoulder surgery Family History Mother Personal history of malignant neoplasm Father Heart disease [place] Sister Personal history of malignant neoplasm Brother Personal history of malignant neoplasm STOMACH Grandfather Heart disease Grandfather Personal history of malignant neoplasm Grandmother Stroke Grandmother Personal history of malignant neoplasm Social History Smoking/Tobacco Use Status: Current every day Tobacco Type: smokeless tobacco Tobacco: How many years used: 70 Smokeless tobacco user: chewing tobacco Quit status: considering quitting Smoking risk assessment performed?: Yes Alcohol Intake: current Alcohol Intake frequency: a few times a month Drug use: Never Substance use type: does not use Household members: spouse Housing: house current occupation: Retired Pets and animals: Yes Pets and animals: dog(s) Sexually active: No Do you think of yourself as: straight/heterosexual Current gender identity: male What is your relationship status?: How often do you talk on the phone with friends or family?: twice per week How often do you attend methodist or worship services?: 1-3 times per year Do you belong to any clubs or organized social groups?: no Panel score (0-1 are the most socially isolated patients): 1 What type of physical activity do you participate in: none Seatbelt use: sometimes Helmet use: Yes Helmet use: sometimes Drive intox 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 Do you feel safe at home: Yes Do you feel safe in your relationship?: Yes Exam Const General: cooperative, comfortable and no acute distress Resp Effort & Inspection: normal respiratory effort Auscultation: clear to auscultation bilaterally Cardio Rate: regular rate Rhythm: regular rhythm Other: distal pulses intact Skin General skin exam: no rashes or lesions noted Neuro General: patient alert and patient oriented x3 Extrem Other: left ankle tenderness, mild swelling, no crepitus, no palpable warmth or erythema Course Vital Signs Vital signs: Vital Signs Temperature 37.0 C 05/29/22 07:29 Pulse 63 05/29/22 07:29 Respiratory Rate 18 05/29/22 07:29 Blood Pressure 143/51 H 05/29/22 07:29 Pulse Oximetry 98 05/29/22 07:29 Temperature 37.0 C 05/29/22 07:29 Pulse 63 05/29/22 07:29 Respiratory Rate 18 05/29/22 07:29 Respiratory Effort 05/29/22 07:34 Blood Pressure 143/51 H 05/29/22 07:29 Blood Pressure Position Sitting 05/29/22 07:29 Pulse Oximetry 98 05/29/22 07:29 Oxygen Delivery Method Room Air 05/29/22 07:29 Oxygen Flow Rate 0 05/29/22 07:29 Pain Level 8 05/29/22 07:29 Lab/Test Results Lab/Test Results: Laboratory Tests Range/Units 05/29/22 05/29/22 05/29/22 08:47 08:47 08:47 WBC (4.4-10.8) 10^3/uL 11.79 H RBC (4.36-5.78) 10^6/uL 4.86 Hgb (13.5-17.5) g/dL 13.7 Hct (40.0-50.0) % 44.0 MCV (80-95) fL 91 MCH (27.0-33.0) pg 28.2 MCHC (32.0-36.0) % 31.1 L RDW (11.8-14.1) % 15.2 H Plt Count (130-400) 10^3/uL 279 MPV (8.0-11.0) fL 9.7 Immature Gran % 2.3 Neutrophils % 70.4 Lymphocytes % 14.0 Monocytes % 9.3 Eosinophils % 2.4 Basophils % 1.6 Nucleated RBC % (0.0-0.3) % 0.0 Absolute Neutrophils (1.2-6.7) 10^3/uL 8.30 H Absolute Lymphocytes (1.2-3.4) 10^3/uL 1.65 Absolute Monocytes (0.1-0.8) 10^3/uL 1.10 H Absolute Eosinophils (0.0-0.7) 10^3/uL 0.28 Absolute Basophils (0.0-0.2) 10^3/uL 0.19 ESR (0-20) mm/hr 25 H Sodium (136-145) mmol/L 138 Potassium (3.5-5.1) mmol/L 5.2 H Chloride (98-107) mmol/L 103 Carbon Dioxide (21.0-32.0) mmol/L 29.0 Anion Gap (3-11) mmol/L 6.0 BUN (7-18) mg/dL 28 H Creatinine (0.70-1.30) mg/dL 1.8 H Est GFR (CKD-EPI 2020) (mL/min/1.73m2) 36.43 Glucose (74-106) mg/dL 115 H Calcium (8.5-10.1) mg/dL 9.1 Total Bilirubin (0.2-1.0) mg/dL 0.6 AST (15-37) U/L 20 ALT (16-63) U/L 20 Alkaline Phosphatase (46-116) U/L 73 C-Reactive Protein (0.0-0.3) mg/dL 0.49 H Total Protein (6.4-8.2) g/dL 8.1 Albumin (3.4-5.0) g/dL 3.7 PAWSS Have you Been Recently Intoxicated or Drunk Within the Last 30 days?: No Have you Ever Experienced Previous Episodes of Alcohol Withdrawal?: No Have you ever Experienced Withdrawal Seizures?: No Have you ever Experienced Delirium Tremens(DT)s?: No Have you ever undergone Alcohol Rehabilitation Treatment (i.e, inpt ot outpatient treatment programs)?: No Have you ever Experienced Blackouts?: No Have you ever Combined Alcohol with other Downers within the last 90 days?: No Have you ever Combined Alcohol with any other Substance of Abuse during the last 90 days?: No Positive Blood Alcohol level on Presentation? [PCS.BAL]: No Evidence of Increased Autonomic Activity (i.e. HR>120, tremor, sweating, agitation, nausea)?: No Result: 0
== END 2022-05-29 10:25 | disposition home or self-care (01) ==
PROVIDERS: Emergency Provider Physician Assistant; PCP Nurse Practitioner Family
DX: N28.9 Disorder of kidney and ureter, unspecified (principal); E87.5 Hyperkalemia; M25.572 Pain in left ankle and joints of left foot; I11.0 Hypertensive heart disease with heart failure; I50.9 Heart failure, unspecified; I25.10 Atherosclerotic heart disease of native coronary artery without angina pectoris; F17.220 Nicotine dependence, chewing tobacco, uncomplicated
CPT/HCPCS: 36415; 80053; 85652; 99283; 73610; 85025; 86140; 99284; J7512

== ENCOUNTER 2022-06-08 02:46 | Outpatient (CLI) | payer MEDICARE, SELFPAY ==
[2022-06-08 12:49] LABS: NT-proBNP 1018 pg/mL (<300); Potassium 4.4 mmol/L (3.5-5.1)
== END 2022-06-08 02:47 | disposition home or self-care (01) ==
LOC: LBO 02:46
PROVIDERS: Family Medicine; PCP Nurse Practitioner Family; Visit Provider Nurse Practitioner Family
DX: I10 Essential (primary) hypertension (principal); R06.02 Shortness of breath
CPT/HCPCS: 36415; 83880; 84132

== ENCOUNTER 2022-06-25 11:06 | Emergency (ER) | payer MEDICARE, SELFPAY ==
[2022-06-25 11:12] VITALS: BP 154/62; PULSE 68; RESP 18; TEMP 36.9; O2SAT 98
[2022-06-25 12:22] VITALS: BP 142/60; PULSE 65; RESP 16; TEMP 36.3; O2SAT 99
--- NOTE | 2022-06-25 12:33 | W.ED.GENAD ---
Discharge Plan Disposition Patient Disposition: Home Condition: Stable Discharge Details Clinical Impression: Gout, Chronic renal insufficiency Primary Care Provider: Chiqui Rueda ED Provider: Skyla Austin Home Meds and New Rx's Prescriptions: New colchicine 0.6 mg capsule 0.6 mg PO ONCE Qty: 3 0RF Rx Instructions: take 2 tabs once and 1 tablet one hour later Continued furosemide 20 mg tablet 20 mg PO DAILY PRN (Reason: edema) Qty: 180 4RF acetaminophen [Tylenol 8 Hour] 650 mg tablet extended release 650 mg PO Q12H melatonin 10 mg capsule 10 mg PO HS PRN Xarelto 15 mg tablet 15 mg PO DAILY Qty: 90 4RF Rx Instructions: must administer with evening meal valsartan 80 mg tablet 80 mg PO DAILY Qty: 90 3RF metoprolol succinate 50 mg tablet extended release 24 hr 25 mg PO DAILY Qty: 90 4RF Rx Instructions: dose reduction 06/08/22 Discharge Instructions Instructions: Gout (ED) Additional Instructions: Please follow-up with your primary care physician Take the colchicine as prescribed Take 2 tablets once followed by 1 tablet an hour later Should he have persistent pain tomorrow, my recommendation is to be reassessed Talk to your doctor about whether or not you have any options for treatment of gout Should you have fever, chills, redness, or any new or worsening complaints, please be reassessed in the emergency department Referrals: Chiqui Rueda NP [Primary Care Provider] - 1 day Discharge Data Discharge Date/Time-TO BE ENTERED AT DEPARTURE: 06/25/22 12:36 Medical Decision Making This 86-year-old gentleman with history of CHF and renal failure presents with report of left ankle pain consistent with his prior gouty flares Reviewed patient's prior diagnostic labs from a month prior when he was treated with colchicine, creatinine 1.8 Spoke with pharmacy and they indicate that prescribing colchicine is reasonable and will likely be safer patient's renal function Patient is afebrile and nontoxic, I reviewed patient's prior labs and x-ray both of which do not show acute abnormality Patient is ambulatory with antalgic gait He is given 2 tablets of colchicine Return precautions discussed and patient expressed understanding Medical Records Medical records reviewed: Yes I reviewed the patient's medical records. Lab Data Lab results reviewed: Yes I reviewed the patient's lab results. HPI General Date/Time Provider Initiated Documentation: 06/25/22 12:09. HPI Narrative: This 86-year-old male presents with left foot pain in consistent with his prior episodes of gouty arthritis. He states that he was seen a month ago for similar presentation and took colchicine with resolution of pain that evening. Denies any fever or chills. States the pain is identical. Drinks approximately 1 beer a week but denies any significant diet change. Denies any additional needs at this time. Symptoms began this morning. Related Data Home Medications Medication Instructions Recorded Confirmed acetaminophen 650 mg 650 mg PO Q12H 03/05/21 06/25/22 tablet,extended release (Tylenol 8 Hour) furosemide 20 mg tablet 20 mg PO DAILY PRN edema #180 tabs 10/15/21 06/25/22 rivaroxaban 15 mg tablet (Xarelto) 15 mg PO DAILY #90 tabs 12/18/21 06/25/22 valsartan 80 mg tablet 80 mg PO DAILY #90 tabs 02/22/22 06/25/22 melatonin 10 mg capsule 10 mg PO HS PRN 04/10/22 06/25/22 metoprolol succinate 50 mg 25 mg PO DAILY #90 tabs 06/08/22 06/25/22 tablet,extended release 24 hr colchicine 0.6 mg capsule 0.6 mg PO ONCE #3 caps 06/25/22 Previous Rx's Medication Instructions Recorded furosemide 20 mg tablet 20 mg PO DAILY PRN edema #180 tabs 10/15/21 rivaroxaban 15 mg tablet (Xarelto) 15 mg PO DAILY #90 tabs 12/18/21 valsartan 80 mg tablet 80 mg PO DAILY #90 tabs 02/22/22 metoprolol succinate 50 mg 25 mg PO DAILY #90 tabs 06/08/22 tablet,extended release 24 hr colchicine 0.6 mg capsule 0.6 mg PO ONCE #3 caps 06/25/22 Allergies Allergy/AdvReac Type Severity Reaction Status Date / Time No Known Allergies Allergy Verified 06/02/22 15:18 General Stated Complaint: Orthopedic RYAN: 4 Review of Systems All systems reviewed & are unremarkable except as noted in HPI and below PFSH All Active Problems (Updated 06/25/22 @ 12:30 by MADDISON Linn) Gout (Chronic) Chronic renal insufficiency (Acute) Hyperkalemia (Acute) ZHU (dyspnea on exertion) (Acute) Acute renal insufficiency (Acute) Acute ankle pain (Acute) Acute hyperkalemia (Acute) Erythema (Acute) Shortness of breath (Acute) Impacted cerumen, bilateral (Acute) History of epistaxis (Acute) Impairment of speech discrimination (Acute) Atrial fibrillation (Chronic) Raised prostate specific antigen (Acute) Shoulder pain (Acute) right shoulder; surgery in 1981; 2006; atrophy Constipation (Acute) Low back pain associated with a spinal disorder other than radiculopathy or spinal stenosis (Acute) Spinal stenosis of lumbar region (Acute) Edema (Acute) Hip pain (Acute) Prediabetes (Acute) Polyp of colon (Chronic 05/26/03) tubular adenoma Rosacea (Chronic) 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 [place], left palate Ventricular arrhythmia Surgical History 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, [address] [facility] [place] [facility], generator replaced 12/15/09, [facility] History of shoulder surgery Family History Mother Personal history of malignant neoplasm Father Heart disease [place] Sister Personal history of malignant neoplasm Brother Personal history of malignant neoplasm STOMACH Grandfather Heart disease Grandfather Personal history of malignant neoplasm Grandmother Stroke Grandmother Personal history of malignant neoplasm Social History Smoking/Tobacco Use Status: Current every day Tobacco Type: smokeless tobacco Tobacco: How many years used: 70 Smokeless tobacco user: chewing tobacco Quit status: considering quitting Smoking risk assessment performed?: Yes Alcohol Intake: current Alcohol Intake frequency: a few times a month Drug use: Never Substance use type: does not use Household members: spouse Housing: house current occupation: Retired Pets and animals: Yes Pets and animals: dog(s) Sexually active: No Do you think of yourself as: straight/heterosexual Current gender identity: male What is your relationship status?: How often do you talk on the phone with friends or family?: twice per week How often do you attend jainism or hindu services?: 1-3 times per year Do you belong to any clubs or organized social groups?: no Panel score (0-1 are the most socially isolated patients): 1 What type of physical activity do you participate in: none Seatbelt use: sometimes Helmet use: Yes Helmet use: sometimes Drive intox or ride w/intox meals on wheels 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: No Do you feel safe at home: Yes Do you feel safe in your relationship?: Yes Exam Const General: cooperative, comfortable and no acute distress HENMT Head: normal to inspection Resp Effort & Inspection: normal respiratory effort Cardio Rate: regular rate Other: distal pulses intact Extrem Other: Left ankle tenderness without redness or swelling, neurovascularly intact or tenderness iv Course Vital Signs Vital signs: Vital Signs Temperature 36.9 C 06/25/22 11:12 Pulse 68 06/25/22 11:12 Respiratory Rate 18 06/25/22 11:12 Blood Pressure 154/62 H 06/25/22 11:12 Pulse Oximetry 98 06/25/22 11:12 Temperature 36.3 C L 06/25/22 12:22 Temperature Source Tympanic 06/25/22 12:22 Pulse 65 06/25/22 12:22 Respiratory Rate 16 06/25/22 12:22 Respiratory Effort 06/25/22 11:16 Blood Pressure 142/60 H 06/25/22 12:22 Blood Pressure Position Supine 06/25/22 11:12 Pulse Oximetry 99 06/25/22 12:22 Oxygen Delivery Method Room Air 06/25/22 12:22 Oxygen Flow Rate 0 06/25/22 12:22 Pain Level 9 06/25/22 11:12
== END 2022-06-25 12:36 | disposition home or self-care (01) ==
PROVIDERS: Emergency Provider Physician Assistant; PCP Nurse Practitioner Family
DX: M10.072 Idiopathic gout, left ankle and foot (principal); N18.9 Chronic kidney disease, unspecified
CPT/HCPCS: 99283

== ENCOUNTER → 2022-07-06 09:46 | Outpatient (BNVA) | payer MEDICARE, SELFPAY | PROVIDERS: PCP Nurse Practitioner Family; Visit Provider Internal Medicine Cardiovascular Disease | DX: I48.20 Chronic atrial fibrillation, unspecified (principal); I10 Essential (primary) hypertension; Z95.0 Presence of cardiac pacemaker; R06.09 Other forms of dyspnea | CPT/HCPCS: 99214 ==

== ENCOUNTER 2022-08-16 01:33 | Outpatient (CLI) | payer MEDICARE, SELFPAY ==
--- NOTE | 2022-08-16 06:45 | DI.CT_ITS ---
Exam(s) CT CHEST HIGH RESOLUTION EXAM: CT CHEST HIGH RESOLUTION CLINICAL HISTORY: restrictive lung disease, assess for ILD,J98.4. TECHNIQUE: Imaging protocol: Axial computed tomography images were obtained and coronal and sagittal reformatted images were created and reviewed. Additional high-resolution 1 millimeter axial images at 10 millimeter intervals were performed in ins piration and expiration. CONTRAST MATERIAL: Noncontrast COMPARISON: CT LUMBAR SPINE WITHOUT CONTRAST from 04/13/2013 CR XR CHEST 2V PA LATERAL from 02/22/2022 FINDINGS: Pulmonary parenchyma: No consolidation. No nodules. Emphysema: None. Tracheobronchial tree: No mucous plugging. No bronchiectasis . Interstitial changes: Mild peripheral interstitial thickening seen at the lung bases. Pleura: No effusion or pneumothorax. Heart: 2 pacemakers are noted. The heart is moderately dilated. The coronary arteries show moderate calcifications. Mitral valve calcifications noted. Aorta: Thoracic aorta non-dilated. Mildatherosclerotic changes. Lymph nodes: No enlarged lymph nodes. Bones: Degenerative changes are seen. No evidence of compression fracture. Upper abdomen: Gallstones noted. IMPRESSION: Mild interstitial lung disease at peripherally at the lung bases. RADIATION DOSE DELIVERED: 574.14mGy.cm Total DLP 574.14mGy.cm Total DLP DATA REPOSITORY: All CT scans at this facility are submitted to the National Radiology Data Registry (NRDR) Dose Index Registry (DIR) with the [employer] (ACR). RADIATION OPTIMIZATION: All CT scans at this facility use at least one of these dose optimization te chniques: automated exposure control; mA and/or kV adjustment per patient size (includes targeted exa ms where dose is matched to clinical indication); or iterative reconstruction.
== END 2022-08-16 01:53 ==
PROVIDERS: PCP Family Medicine; Visit Provider Student in an Organized Health Care Education/Training Program
DX: J98.4 Other disorders of lung (principal)
CPT/HCPCS: 71250

== ENCOUNTER 2022-08-16 03:16 | Outpatient (CLI) | payer MEDICARE, SELFPAY ==
[2022-08-16] MEDS: Inhaler, Assist Device 1 EACH MC (09:08)
[2022-08-16] MEDS: Albuterol HFA 18 GM 200 PUFF INH IH (09:08)
--- NOTE | 2022-08-16 15:07 | W.PFT ---
Date of service: 08/16/22 Time of Service: 08:06 Pulmonary Function Test Result Requesting Provider Duchene Indications: Restrictive lung disease Interpretation Spirometry: There is no airflow limitation. There is no significant bronchodilator response. The FVC is low. The MIP and MEP are normal. Lung Volumes: There is mild restrictive lung disease Diffusion Capacity: Diffusion is technically normal. Airway Pressure: Normal airways resistance Impression Mild restrictive lung disease with a technically normal diffusion and normal muscle pressures. Note: When compared to 09/11/18, the FEV1 anf FVC are improved, as is the TLC. The diffusion is decreased. Clinical Correlation therefore is recommended.
== END 2022-08-16 03:17 | disposition home or self-care (01) ==
LOC: RT 03:16
PROVIDERS: PCP Family Medicine; Visit Provider Student in an Organized Health Care Education/Training Program
DX: J98.4 Other disorders of lung (principal)
CPT/HCPCS: 94060; 94726; 94729

== ENCOUNTER → 2022-10-27 09:24 | Outpatient (BNVA) | payer MEDICARE, SELFPAY | PROVIDERS: PCP Family Medicine; Visit Provider Internal Medicine Cardiovascular Disease | DX: I48.20 Chronic atrial fibrillation, unspecified; Z45.010 Encounter for checking and testing of cardiac pacemaker pulse generator [battery] | CPT/HCPCS: 93280 ==

== ENCOUNTER 2022-12-21 10:23 | Outpatient (CLI) | payer MEDICARE, SELFPAY ==
[2022-12-21 15:23] LABS: Anion Gap 9.9 mmol/L (3-11); BUN 37 mg/dL (7-18); CO2 26.1 mmol/L (21.0-32.0); CREATININE 1.9 mg/dL (0.70-1.30); Calcium 9.4 mg/dL (8.5-10.1); Chloride 103 mmol/L (98-107); Estimated GFR 33.93 (mL/min/1.73m2); Glucose 139 mg/dL (74-106); NT-proBNP 896 pg/mL (<300); Potassium 4.4 mmol/L (3.5-5.1); Sodium 139 mmol/L (136-145)
== END 2022-12-21 10:24 | disposition home or self-care (01) ==
LOC: LOS 10:23
PROVIDERS: PCP Family Medicine; Referring Provider Family Medicine; Visit Provider Family Medicine
DX: R06.02 Shortness of breath (principal); E87.1 Hypo-osmolality and hyponatremia
CPT/HCPCS: 36415; 80048; 83880

== ENCOUNTER → 2023-01-04 09:21 | Outpatient (BNVA) | payer MEDICARE, SELFPAY | PROVIDERS: PCP Family Medicine; Visit Provider Internal Medicine Cardiovascular Disease | DX: I48.91 Unspecified atrial fibrillation (principal); Z79.01 Long term (current) use of anticoagulants; R06.09 Other forms of dyspnea; Z95.0 Presence of cardiac pacemaker; I10 Essential (primary) hypertension | CPT/HCPCS: 99214 ==

== ENCOUNTER 2023-01-24 07:22 | Emergency (ER) | payer MEDICARE, SELFPAY ==
[2023-01-24 07:24] VITALS: BP 152/60; PULSE 85; RESP 16; TEMP 36.5; O2SAT 96
[2023-01-24] MEDS: Acetaminophen 500 MG TAB 1000 MG PO (07:40)
--- NOTE | 2023-01-24 07:42 | ED.GENADUL_ITS ---
Discharge Plan Disposition Patient Disposition: Home Condition: Stable Discharge Details Clinical Impression: Hematoma of left thigh Primary Care Provider: Robert Hanna ED Provider: Jeff Shipman Home Meds and New Rx's Prescriptions: Continued acetaminophen [Tylenol 8 Hour] 650 mg tablet extended release 650 mg PO Q12H melatonin 10 mg capsule 10 mg PO HS PRN amlodipine 2.5 mg tablet 5 mg PO DAILY Qty: 180 3RF metoprolol succinate 50 mg tablet extended release 24 hr 25 mg PO .am Qty: 90 4RF Rx Instructions: dose reduction 06/08/22 valsartan 80 mg tablet 80 mg PO DAILY Qty: 90 3RF Xarelto 15 mg tablet 15 mg PO DAILY Qty: 90 3RF Rx Instructions: must administer with evening meal bumetanide 1 mg tablet 1 mg PO DAILY Qty: 30 2RF Discharge Instructions Instructions: Hematoma (ED) Additional Instructions: follow up with your primary care provider within 1-2 weeks especially if pain continues if you feel more ill or have severe worsening pain or new pain such as chest pain return to the emergency department Medical Decision Making 87 yo male with hx of afib on rivaroxaban comes in with left thigh pain. He cuts wood frequently and on Tuesday while doing this had a log that went up and hit him in the left lateral upper thigh. No falls or loc. Has had some discomfort since then so came here. He is able to ambulate and bear weight. He arrives stable and appears well, caox4 and very hard of hearing. He has no head pain, neck pain, back pain, chest pain or abdomen pain. He does have a 4cm hematoma on the left lateral upper thigh, no warmth or fluctuance, does have bruising as well on the medial thigh. He has full rom of the hip, knee, ankle/foot, intact sensation and pulses, no tenderness elsewhere. Suspect his pain is from contusion and hematoma, will obtain xrays to evaluate for fx of the femur xray unremarkable on my read, patient stable, will have nursing wrap upper thigh/hematoma with mayte wrap, he is stable for d/c, advised to f/u with pcp and return precautions given Differential Diagnosis Differential Diagnosis: hematoma, contusion, fracture Imaging Data Radiologic Study: Attestation: I personally reviewed and interpreted this imaging study as follows: Imaging: X-Ray My impression: no acute findings HPI General Mode of arrival: ambulatory . Date/Time Provider Initiated Documentation: 01/24/23 07:31 . Limitations to Documentation: no limitations . Information obtained by: patient . History of Present Illness 87 year old M presents to the emergency department with the chief complaint of left thigh pain, described as moderate, Patient started experiencing this day(s) (2) and it has been constant. Rest improves symptom(s), Movement worsens symptoms . Patient notes no other symptoms.. Patient did receive the following treatments prior to arrival, none Related Data Home Medications Medication Instructions Recorded Confirmed acetaminophen 650 mg 650 mg PO Q12H 03/05/21 01/24/23 tablet,extended release (Tylenol 8 Hour) valsartan 80 mg tablet 80 mg PO DAILY #90 tabs 02/22/22 01/24/23 melatonin 10 mg capsule 10 mg PO HS PRN 04/10/22 01/24/23 rivaroxaban 15 mg tablet (Xarelto) 15 mg PO DAILY #90 tabs 09/27/22 01/24/23 amlodipine 2.5 mg tablet 5 mg PO DAILY #180 tabs 11/10/22 01/24/23 metoprolol succinate 50 mg 25 mg PO .am #90 tabs 11/10/22 01/24/23 tablet,extended release 24 hr bumetanide 1 mg tablet 1 mg PO DAILY #30 tabs 01/12/23 01/24/23 Previous Rx's Medication Instructions Recorded valsartan 80 mg tablet 80 mg PO DAILY #90 tabs 02/22/22 rivaroxaban 15 mg tablet (Xarelto) 15 mg PO DAILY #90 tabs 09/27/22 amlodipine 2.5 mg tablet 5 mg PO DAILY #180 tabs 11/10/22 metoprolol succinate 50 mg 25 mg PO .am #90 tabs 11/10/22 tablet,extended release 24 hr bumetanide 1 mg tablet 1 mg PO DAILY #30 tabs 01/12/23 Allergies Allergy/AdvReac Type Severity Reaction Status Date / Time No Known Allergies Allergy Verified 01/24/23 07:37 General Stated Complaint: Orthopedic RYAN: 3 Review of Systems All systems reviewed & are unremarkable except as noted in HPI and below Constitutional Constitutional: Denies chills, Denies fever(s) and Denies weakness Cardiovascular Cardiovascular: Denies chest pain and Denies dyspnea Respiratory Respiratory: Denies cough and Denies dyspnea Gastrointestinal Gastrointestinal: Denies abdominal pain, Denies nausea and Denies vomiting Genitourinary Genitourinary: Denies dysuria Musculoskeletal Musculoskeletal: Denies joint swelling Integumentary/Breasts Skin/Breast: Denies rash Neurologic Neurologic: Denies weakness [facility] All Active Problems (Updated 01/24/23 @ 08:31 by Jeff Shipman MD) Hematoma of left thigh (Acute) Interstitial lung disease (Acute) Restrictive lung disease (Acute) Hyperkalemia (Acute) ZHU (dyspnea on exertion) (Acute) Erythema (Acute) Shortness of breath (Acute) Impacted cerumen, bilateral (Acute) History of epistaxis (Acute) Impairment of speech discrimination (Acute) Atrial fibrillation (Chronic) Raised prostate specific antigen (Acute) Shoulder pain (Acute) right shoulder; surgery in 1981; 2005; atrophy Constipation (Acute) Low back pain associated with a spinal disorder other than radiculopathy or spinal stenosis (Acute) Spinal stenosis of lumbar region (Acute) Edema (Acute) Hip pain (Acute) Prediabetes (Acute) Polyp of colon (Chronic 05/26/03) tubular adenoma Rosacea (Chronic) 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) Medical History Benign prostatic hyperplasia CHF (congestive heart failure) 02/2021- EF 30-40% Coronary 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, generator replaced 12/15/09, [facility] History of shoulder surgery Family History Mother Personal history of malignant neoplasm Father Heart disease [place] Sister Personal history of malignant neoplasm Brother Personal history of malignant neoplasm STOMACH Grandfather Heart disease Grandfather Personal history of malignant neoplasm Grandmother Stroke Grandmother Personal history of malignant neoplasm Social History Smoking/Tobacco Use Status: Current every day Tobacco Type: smokeless tobacco Tobacco: How many years used: 80 Smokeless tobacco user: chewing tobacco Quit status: considering quitting Smoking risk assessment performed?: Yes Alcohol Intake: current Alcohol Intake frequency: a few times a month Drug use: Never Substance use type: does not use Household members: spouse Housing: house current occupation: Retired Pets and animals: Yes Pets and animals: dog(s) Sexually active: No Do you think of yourself as: straight/heterosexual Current gender identity: male What is your relationship status?: How often do you talk on the phone with friends or family?: twice per week How often do you attend mu-ism or confucianism services?: 1-3 times per year Do you belong to any clubs or organized social groups?: no Panel score (0-1 are the most socially isolated patients): 1 What type of physical activity do you participate in: none Seatbelt use: sometimes Helmet use: Yes Helmet use: sometimes Drive intox 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 Do you feel safe at home: Yes Do you feel safe in your relationship?: Yes Exam Const General: no acute distress Orientation: alert HENMT Head: normal to inspection Ears: external ears normal General nose exam: external nose normal Mouth: moist mucous membranes Eyes General: appearance normal, both eyes and all related structures Neck Neck: normal visual inspection Resp Effort & Inspection: normal respiratory effort and able to speak in complete sentences Cardio Rate: regular rate Skin General skin exam: no rashes or lesions noted Neuro General: patient alert and patient oriented x3 Extrem General: full ROM, capillary refill normal, no pedal edema and no calf tenderness Psych Mental Status: mental status grossly normal Course Vital Signs Vital signs: Vital Signs Temperature 36.5 C 01/24/23 07:24 Pulse 85 01/24/23 07:24 Respiratory Rate 16 01/24/23 07:24 Blood Pressure 152/60 H 01/24/23 07:24 Pulse Oximetry 96 01/24/23 07:24 Temperature 36.5 C 01/24/23 07:24 Temperature Source Temporal Artery Scan 01/24/23 07:24 Pulse 85 01/24/23 07:24 Respiratory Rate 16 01/24/23 07:24 Respiratory Effort Normal 01/24/23 07:30 Blood Pressure 152/60 H 01/24/23 07:24 Blood Pressure Position Sitting 01/24/23 07:24 Pulse Oximetry 96 01/24/23 07:24 Oxygen Delivery Method Room Air 01/24/23 07:24 Oxygen Flow Rate 0 01/24/23 07:24 Pain Level 2 01/24/23 07:40
--- NOTE | 2023-01-24 08:04 | DI.RAD_ITS ---
Exam(s) XR FEMUR LT EXAM: XR FEMUR LT CLINICAL HISTORY: pain s/p hit with wood tuesday. TECHNIQUE: 2D digital imaging was performed. COMPARISON: No exams were available for comparison FINDINGS: Two views. There is no evidence of femur fracture. No hip fracture. Bone density normal. No osseous lesions. No radiopaque foreign body. There is, however, some soft tissue swelling the upper lateral left thi gh, probably hematoma given the history here. No degenerative changes evident in the left hip. IMPRESSION: Soft tissue findings as above. Probable prominent hematoma upper lateral left thigh. No fracture ev ident. DATA REPOSITORY: RADIATION DOSE DELIVERED:
[2023-01-24 08:42] VITALS: BP 163/59; PULSE 72; RESP 14; O2SAT 99
== END 2023-01-24 08:47 | disposition home or self-care (01) ==
PROVIDERS: Emergency Provider Emergency Medicine; PCP Family Medicine
DX: S70.12XA Contusion of left thigh, initial encounter (principal); I48.91 Unspecified atrial fibrillation; I11.0 Hypertensive heart disease with heart failure; I50.9 Heart failure, unspecified; Z95.0 Presence of cardiac pacemaker; F17.290 Nicotine dependence, other tobacco product, uncomplicated
CPT/HCPCS: 73552; 99283; 99282

== ENCOUNTER 2023-01-26 07:10 | Emergency (ER) | payer MEDICARE, SELFPAY ==
[2023-01-26 07:12] VITALS: BP 157/52; PULSE 73; RESP 18; TEMP 36.3; O2SAT 96
--- NOTE | 2023-01-26 07:40 | W.ED.GENAD ---
Discharge Plan Disposition Patient Disposition: Home Discharge Details Clinical Impression: Hematoma Primary Care Provider: Robert Hanna ED Provider: Susi Figueroa Home Meds and New Rx's Prescriptions: Continued acetaminophen [Tylenol 8 Hour] 650 mg tablet extended release 650 mg PO Q12H melatonin 10 mg capsule 10 mg PO HS PRN amlodipine 2.5 mg tablet 5 mg PO DAILY Qty: 180 3RF metoprolol succinate 50 mg tablet extended release 24 hr 25 mg PO .am Qty: 90 4RF Rx Instructions: dose reduction 06/08/22 valsartan 80 mg tablet 80 mg PO DAILY Qty: 90 3RF Xarelto 15 mg tablet 15 mg PO DAILY Qty: 90 3RF Rx Instructions: must administer with evening meal bumetanide 1 mg tablet 1 mg PO DAILY Qty: 30 2RF Discharge Instructions Instructions: Hematoma (ED) Additional Instructions: Take tylenol over the counter as needed for pain; follow the directions on the bottle. Use Bacitracin on the area of skin breakdown and keep the area clean and dry. Return to the emergency department for new or worsening symptoms, including worsening or severe pain, numbness, tingling, or if you have any other concerns. Referrals: Robert Hanna MD [Primary Care Provider] - Medical Decision Making 87yo M with hx of interstitial lung disesase, afib on Xarelto, presenting for left thigh hematoma. History from patient and [facility] record review. Struck on leg on Tuesday with piece of wood while chopping wood; seen in this ED on Tuesday and discharged home after normal XR femur. Presents today for pain and skin breakdown; had not taken OTC pain medication. Vital signs reassuring on arrival, 4.5cm hematoma with 2.5cm area of skin breakdown with serous drainage on exam. No indication of infection. No s/s to suggest compartment syndrome. Dressed with bacitrican and given PO tylenol, advised to continue same at home. Educated regarding s/s compartment syndrome. Discharged home; discharge instructions including return precautions were reviewed with patient who verbalized understanding. All questions were answered and they are in full agreement with the plan. Medical Records Medical records reviewed: Yes I reviewed the patient's medical records. Medical records narrative: Reviewed physician note ED visit 01/24/23. Reviewed XR read ED visit 01/24/23 HPI General Mode of arrival: ambulatory. Date/Time Provider Initiated Documentation: 01/26/23 07:11. Limitations to Documentation: no limitations. Information obtained by: patient. HPI Narrative: 87yo M with hx of interstitial lung disesase, afib on Xarelto, presenting for left thigh hematoma. Was hit in the leg on Tuesday with wood while chopping wood; seen in this ED on Tuesday and discharged home. Last night pain kept him awake and he is concerned about some skin breakdown. Denies pain or injury elsewhere. Did not take anything at home for pain. No numbness, tingling, or weakness to leg. He is otherwise in his usual state of health with no fevers, chills, chest pain, new shortness of breath, difficulty ambulating, or other concerns. Related Data Home Medications Medication Instructions Recorded Confirmed acetaminophen 650 mg 650 mg PO Q12H 03/05/21 01/26/23 tablet,extended release (Tylenol 8 Hour) valsartan 80 mg tablet 80 mg PO DAILY #90 tabs 02/22/22 01/26/23 melatonin 10 mg capsule 10 mg PO HS PRN 04/10/22 01/26/23 rivaroxaban 15 mg tablet (Xarelto) 15 mg PO DAILY #90 tabs 09/27/22 01/26/23 amlodipine 2.5 mg tablet 5 mg PO DAILY #180 tabs 11/10/22 01/26/23 metoprolol succinate 50 mg 25 mg PO .am #90 tabs 11/10/22 01/26/23 tablet,extended release 24 hr bumetanide 1 mg tablet 1 mg PO DAILY #30 tabs 01/12/23 01/26/23 Previous Rx's Medication Instructions Recorded valsartan 80 mg tablet 80 mg PO DAILY #90 tabs 02/22/22 rivaroxaban 15 mg tablet (Xarelto) 15 mg PO DAILY #90 tabs 09/27/22 amlodipine 2.5 mg tablet 5 mg PO DAILY #180 tabs 11/10/22 metoprolol succinate 50 mg 25 mg PO .am #90 tabs 11/10/22 tablet,extended release 24 hr bumetanide 1 mg tablet 1 mg PO DAILY #30 tabs 01/12/23 Allergies Allergy/AdvReac Type Severity Reaction Status Date / Time No Known Allergies Allergy Verified 01/26/23 07:18 General Stated Complaint: Recheck RYAN: 4 PFSH All Active Problems (Updated 01/26/23 @ 07:44 by Susi Figueroa MD) Hematoma of left thigh (Acute) Hematoma (Acute) Interstitial lung disease (Acute) Restrictive lung disease (Acute) Hyperkalemia (Acute) ZHU (dyspnea on exertion) (Acute) Erythema (Acute) Shortness of breath (Acute) Impacted cerumen, bilateral (Acute) History of epistaxis (Acute) Impairment of speech discrimination (Acute) Atrial fibrillation (Chronic) Raised prostate specific antigen (Acute) Shoulder pain (Acute) right shoulder; surgery in 1981; 2005; atrophy Constipation (Acute) Low back pain associated with a spinal disorder other than radiculopathy or spinal stenosis (Acute) Spinal stenosis of lumbar region (Acute) Edema (Acute) Hip pain (Acute) Prediabetes (Acute) Polyp of colon (Chronic 05/26/03) tubular adenoma Rosacea (Chronic) 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) Medical History Benign prostatic hyperplasia CHF (congestive heart failure) 02/2021- EF 30-40% Coronary atherosclerosis of [place] coronary vessel 08/2020- [place] [facility] EF 63%- 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- 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 seeing Dr Guillen Depressive disorder Hypertension 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[facility] left palate Ventricular arrhythmia Surgical History 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, [place] [facility] [place] [facility], generator replaced 12/15/09, RH History of shoulder surgery Family History Mother Personal history of malignant neoplasm Father Heart disease [place] Sister Personal history of malignant neoplasm Brother Personal history of malignant neoplasm STOMACH Grandfather Heart disease Grandfather Personal history of malignant neoplasm Grandmother Stroke Grandmother Personal history of malignant neoplasm Social History Smoking/Tobacco Use Status: Current every day Tobacco Type: smokeless tobacco Tobacco: How many years used: 80 Smokeless tobacco user: chewing tobacco Quit status: considering quitting Smoking risk assessment performed?: Yes Alcohol Intake: current Alcohol Intake frequency: a few times a month Alcohol type: beer Drug use: Never Substance use type: does not use Household members: spouse Housing: house current occupation: Retired Pets and animals: Yes Pets and animals: dog(s) Sexually active: No Do you think of yourself as: straight/heterosexual Current gender identity: male What is your relationship status?: How often do you talk on the phone with friends or family?: twice per week How often do you attend anglican or episcopalian services?: 1-3 times per year Do you belong to any clubs or organized social groups?: no Panel score (0-1 are the most socially isolated patients): 1 What type of physical activity do you participate in: none Seatbelt use: sometimes Helmet use: Yes Helmet use: sometimes Drive intox or ride w/intox 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 Exam Narrative Exam Narrative: General: Alert, well appearing, well nourished, in no acute distress. Hard of hearing. Head: Normocephalic, atraumatic Neck: Trachea midline, Neck supple. Cardiac: No cyanosis. Resp: No respiratory distress. Abd: Non-distended Extremities: No deformities. Left lateral thigh hematoma, 4.5cm in diameter, with overlying skin breakdown. Serous drainage. Fading echymosis to medial thigh. Compartments soft. Pulses and sesnation intact. Neurologic: GCS 15. Moves all extremities freely against gravity. Ambulates with steady gait. Course Vital Signs Vital signs: Vital Signs Temperature 36.3 C L 01/26/23 07:12 Pulse 73 01/26/23 07:12 Respiratory Rate 18 01/26/23 07:12 Blood Pressure 157/52 H 01/26/23 07:12 Pulse Oximetry 96 01/26/23 07:12 Temperature 36.3 C L 01/26/23 07:12 Temperature Source Skin 01/26/23 07:12 Pulse 73 01/26/23 07:12 Respiratory Rate 18 01/26/23 07:12 Respiratory Effort Normal, Non-Labored 01/26/23 07:23 Blood Pressure 157/52 H 01/26/23 07:12 Blood Pressure Position Sitting 01/26/23 07:12 Pulse Oximetry 96 01/26/23 07:12 Oxygen Delivery Method Room Air 01/26/23 07:12 Oxygen Flow Rate 0 01/26/23 07:12 Pain Level 3 01/26/23 07:12 PAWSS Have you Been Recently Intoxicated or Drunk Within the Last 30 days?: No Have you Ever Experienced Previous Episodes of Alcohol Withdrawal?: No Have you ever Experienced Withdrawal Seizures?: No Have you ever Experienced Delirium Tremens(DT)s?: No Have you ever undergone Alcohol Rehabilitation Treatment (i.e, inpt ot outpatient treatment programs)?: No Have you ever Experienced Blackouts?: No Have you ever Combined Alcohol with other Downers within the last 90 days?: No Have you ever Combined Alcohol with any other Substance of Abuse during the last 90 days?: No Positive Blood Alcohol level on Presentation? [PCS.BAL]: No Evidence of Increased Autonomic Activity (i.e. HR>120, tremor, sweating, agitation, nausea)?: No Result: 0
[2023-01-26 07:46] VITALS: BP 157/52; PULSE 73; RESP 18; TEMP 36.3; O2SAT 96
[2023-01-26] MEDS: Acetaminophen 325 MG TAB 650 MG PO (07:46)
[2023-01-26] MEDS: Bacitracin 30 GM TUBE (07:46)
== END 2023-01-26 07:49 | disposition home or self-care (01) ==
PROVIDERS: Emergency Provider Student in an Organized Health Care Education/Training Program; PCP Family Medicine
DX: S70.12XA Contusion of left thigh, initial encounter (principal); W22.8XXA Striking against or struck by other objects, initial encounter
CPT/HCPCS: 99283

== ENCOUNTER 2023-02-05 09:10 | Emergency (ER) | payer MEDICARE, SELFPAY ==
[2023-02-05 09:25] VITALS: BP 130/55; PULSE 85; RESP 18; TEMP 36.8; O2SAT 100
--- NOTE | 2023-02-05 09:45 | DI.RAD_ITS ---
Exam(s) XR TIB/FIB LT EXAM: XR TIB/FIB LT CLINICAL HISTORY: leg pain. TECHNIQUE: 2D digital imaging was performed. Two views. COMPARISON: CR XR FEMUR LT from 01/24/2023 CR,XR XR ANKLE LT COMPLETE from 02/05/2023 FINDINGS: BONES: No acute fracture is present. No bony destructive lesion is seen. Visualized portion of knee a nd ankle joints are unremarkable. SOFT TISSUE: Swelling around ankle. Mild diffuse soft tissue swelling. Vascular calcifications. IMPRESSION: Soft tissue swelling. No acute bony abnormality DATA REPOSITORY: RADIATION DOSE DELIVERED:
--- NOTE | 2023-02-05 09:46 | ED.GENADUL_ITS ---
Discharge Plan Disposition Patient Disposition: Home Discharge Details Clinical Impression: Cellulitis of left leg, Traumatic ecchymosis of left lower leg Primary Care Provider: Robert Hanna ED Provider: Jefe Rubio Home Meds and New Rx's Prescriptions: New cephalexin 500 mg tablet 500 mg PO QID 5 Days Qty: 20 0RF Continued acetaminophen [Tylenol 8 Hour] 650 mg tablet extended release 650 mg PO Q12H melatonin 10 mg capsule 10 mg PO HS PRN amlodipine 2.5 mg tablet 5 mg PO DAILY Qty: 180 3RF metoprolol succinate 50 mg tablet extended release 24 hr 25 mg PO .am Qty: 90 4RF Rx Instructions: dose reduction 06/08/22 valsartan 80 mg tablet 80 mg PO DAILY Qty: 90 3RF Xarelto 15 mg tablet 15 mg PO DAILY Qty: 90 3RF Rx Instructions: must administer with evening meal bumetanide 1 mg tablet 1 mg PO DAILY Qty: 30 2RF Changed cephalexin 500 mg tablet 500 mg PO QID 10 Days Qty: 20 0RF Rx Instructions: Take 1 tablet twice day for 10 days Discharge Instructions Instructions: Cellulitis (ED) Additional Instructions: Your x-ray imaging did not show any acute fractures of your lower leg. I suspect a possible injury that may have been minor that now is causing some cellulitis or skin infection. Please take your antibiotic as prescribed which will be now 4 times a day. If you develop any new or significant worsening of symptoms feel free to return the emergency department for reassessment. Referrals: Robert Hanna MD [Primary Care Provider] - 3 days Medical Decision Making Patient presenting to the emergency department for chief complaint of left lower leg pain and swelling. Patient reports 2 weeks ago he was struck in the upper left thigh while splitting wood which caused a hematoma. He was seen in the emergency department and has been following up was recently placed on antibiotics. Son noted patient having some pain with ambulation and redness along with bruising to left lower leg now. Son did not know if these were connected or separate events. Patient denies any new injury, fever chills, or other symptoms. Physical exam is shows swelling, erythema, and ecchymosis to the distal third of the left lower leg. I question if this is either a new injury or if this could be a cellulitis. We will start with radiological imaging. Pending results will give acetaminophen for pain. Of note patient is anticoagulated, has a history of A-fib, epistaxis, edema. Reviewed radiological imaging which shows no acute findings. Given concern of cellulitis will have patient take Keflex 500 mg 4 times daily compared to the primary care prescribed amount of twice daily. We will have them monitor symptoms and return for new or worsening of condition. After discussion of diagnosis and plan of care patient has no further needs, questions, or concerns and states clear understanding to return to the emergency department for any worsening symptoms. This documentation was generated using [employer]ation system, please disregard any oddities of phrase or misspellings. HPI General Mode of arrival: ambulatory . Date/Time Provider Initiated Documentation: 02/05/23 09:29 . Limitations to Documentation: other (Hearing impairment) . Information obtained by: patient, family and RN notes reviewed . History of Present Illness 87 year old M presents to the emergency department with the chief complaint of Left leg pain, described as moderate, Patient started experiencing this unknown and it has been constant. No relieving factors improve symptom(s), No exacerbating factors reported . Patient notes no other symptoms.. Patient did receive the following treatments prior to arrival, none Related Data Home Medications Medication Instructions Recorded Confirmed acetaminophen 650 mg 650 mg PO Q12H 03/05/21 02/05/23 tablet,extended release (Tylenol 8 Hour) valsartan 80 mg tablet 80 mg PO DAILY #90 tabs 02/22/22 02/05/23 melatonin 10 mg capsule 10 mg PO HS PRN 04/10/22 02/05/23 rivaroxaban 15 mg tablet (Xarelto) 15 mg PO DAILY #90 tabs 09/27/22 02/05/23 amlodipine 2.5 mg tablet 5 mg PO DAILY #180 tabs 11/10/22 02/05/23 metoprolol succinate 50 mg 25 mg PO .am #90 tabs 11/10/22 02/05/23 tablet,extended release 24 hr bumetanide 1 mg tablet 1 mg PO DAILY #30 tabs 01/12/23 02/05/23 cephalexin 500 mg tablet 500 mg PO QID 10 days #20 tabs 02/05/23 02/05/23 cephalexin 500 mg tablet 500 mg PO QID 5 days #20 tabs 08/12/23 Previous Rx's Medication Instructions Recorded valsartan 80 mg tablet 80 mg PO DAILY #90 tabs 02/22/22 rivaroxaban 15 mg tablet (Xarelto) 15 mg PO DAILY #90 tabs 09/27/22 amlodipine 2.5 mg tablet 5 mg PO DAILY #180 tabs 11/10/22 metoprolol succinate 50 mg 25 mg PO .am #90 tabs 11/10/22 tablet,extended release 24 hr bumetanide 1 mg tablet 1 mg PO DAILY #30 tabs 01/12/23 cephalexin 500 mg tablet 500 mg PO QID 10 days #20 tabs 02/05/23 cephalexin 500 mg tablet 500 mg PO QID 5 days #20 tabs 02/05/23 Allergies Allergy/AdvReac Type Severity Reaction Status Date / Time No Known Allergies Allergy Verified 02/05/23 09:28 General Stated Complaint: Cellulitis RYAN: 3 Review of Systems Constitutional Constitutional: Denies chills, Denies fever(s), Denies frequent falls and Denies malaise Cardiovascular Cardiovascular: Denies chest pain and Denies dyspnea Respiratory Respiratory: Denies dyspnea Musculoskeletal Musculoskeletal: Reports as per HPI, Reports arthralgias, Reports joint swelling, Denies numbness and Denies tingling Integumentary/Breasts Skin/Breast: Reports erythema, Reports skin swelling and Reports unusual bruisin g Neurologic Neurologic: Denies frequent falls, Denies numbness and Denies tingling PFSH All Active Problems (Updated 02/05/23 @ 10:27 by Jefe Rubio NP) Cellulitis of left leg (Acute) Traumatic ecchymosis of left lower leg (Acute) Hematoma of left thigh (Acute) Hematoma (Acute) Interstitial lung disease (Acute) Restrictive lung disease (Acute) Hyperkalemia (Acute) ZHU (dyspnea on exertion) (Acute) Erythema (Acute) Shortness of breath (Acute) Impacted cerumen, bilateral (Acute) History of epistaxis (Acute) Impairment of speech discrimination (Acute) Atrial fibrillation (Chronic) Raised prostate specific antigen (Acute) Shoulder pain (Acute) right shoulder; surgery in 1981; 2005; atrophy Constipation (Acute) Low back pain associated with a spinal disorder other than radiculopathy or spinal stenosis (Acute) Spinal stenosis of lumbar region (Acute) Edema (Acute) Hip pain (Acute) Prediabetes (Acute) Polyp of colon (Chronic 05/26/03) tubular adenoma Rosacea (Chronic) 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) Medical History Benign prostatic hyperplasia CHF (congestive heart failure) 02/2021- EF 30-40% Coronary atherosclerosis of [place] coronary vessel 08/2020- [place] [facility] [place] EF 63%- Centrifugal Spinner [facility] Arteaga 06/16- now seeing Dr Guillen Depressive disorder Hypertension 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 Ventricular arrhythmia Surgical History 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, [place] [facility] [place] [facility], generator replaced 12/15/09, [facility] History of shoulder surgery Family History Mother Personal history of malignant neoplasm Father Heart disease [place] Sister Personal history of malignant neoplasm Brother Personal history of malignant neoplasm STOMACH Grandfather Heart disease Grandfather Personal history of malignant neoplasm Grandmother Stroke Grandmother Personal history of malignant neoplasm Social History Smoking/Tobacco Use Status: Current every day Tobacco Type: smokeless tobacco Tobacco: How many years used: 80 Smokeless tobacco user: chewing tobacco Quit status: considering quitting Smoking risk assessment performed?: Yes Alcohol Intake: current Alcohol Intake frequency: a few times a month Alcohol type: beer Drug use: Never Substance use type: does not use Household members: spouse Housing: house current occupation: Retired Pets and animals: Yes Pets and animals: dog(s) Sexually active: No Do you think of yourself as: straight/heterosexual Current gender identity: male What is your relationship status?: How often do you talk on the phone with friends or family?: twice per week How often do you attend buddhism or zoroastrian services?: 1-3 times per year Do you belong to any clubs or organized social groups?: no Panel score (0-1 are the most socially isolated patients): 1 What type of physical activity do you participate in: none Seatbelt use: sometimes Helmet use: Yes Helmet use: sometimes Drive intox or ride w/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 Exam Const General: cooperative, no acute distress and not ill appearing Orientation: alert, awake and oriented x3 HENMT Mouth: moist mucous membranes Resp Effort & Inspection: normal respiratory effort, able to speak in complete sentences and no respiratory distress Cardio Rate: regular rate Rhythm: regular rhythm Pulses: normal peripheral pulses Skin General skin exam: no rashes or lesions noted Neuro General: patient alert, patient awake, patient oriented x3, moves all extremities and no focal motor deficits Sensory Exam: no sensory deficits noted Extrem General: normal exam except as noted Left lower extremity: lower leg Details: erythema Location: of the distal lower leg Location: laterally, tenderness Location: of the distal fibula, pitting edema Details: 1+, ecchymosis distal lower leg lateral and warmth and ankle Details: tenderness Location: of the lateral malleolus and swelling; no warmth Course Vital Signs Vital signs: Vital Signs Temperature 36.8 C 02/05/23 09:25 Pulse 85 02/05/23 09:25 Respiratory Rate 18 02/05/23 09:25 Blood Pressure 130/55 L 02/05/23 09:25 Pulse Oximetry 100 02/05/23 09:25 Temperature 36.8 C 02/05/23 09:25 Temperature Source Oral 02/05/23 09:25 Pulse 85 02/05/23 09:25 Respiratory Rate 18 02/05/23 09:25 Blood Pressure 130/55 L 02/05/23 09:25 Blood Pressure Position Sitting 02/05/23 09:25 Pulse Oximetry 100 02/05/23 09:25 Oxygen Delivery Method Room Air 02/05/23 09:25 Oxygen Flow Rate 0 02/05/23 09:25 Pain Level 7 02/05/23 09:25
--- NOTE | 2023-02-05 10:00 | DI.RAD_ITS ---
Exam(s) XR ANKLE LT COMPLETE EXAM: XR ANKLE LT COMPLETE CLINICAL HISTORY: pain- lateral TECHNIQUE: 2D digital imaging was performed. Three views. COMPARISON: CR,XR XR ANKLE LT COMPLETE from 05/29/2022 FINDINGS: BONES: No acute fracture is present. No bony destructive lesion is seen. Enthesophyte at Achilles ins ertion on calcaneus. JOINTS:The ankle mortise is normally aligned. No significant tibiotalar joint space narrowing. SOFT TISSUE: Swelling. Vascular calcifications. IMPRESSION: Soft tissue swelling. DATA REPOSITORY: RADIATION DOSE DELIVERED:
--- NOTE | 2023-02-05 10:19 | DI.VRAD_ITS ---
PROCEDURE INFORMATION: Exam: XR Left Ankle Exam date and time: 02/05/2023 10:08 AM Age: 87 years old Clinical indication: Other: Pain-lateral TECHNIQUE: Imaging protocol: Radiologic exam of the left ankle. Views: 3 or more views. COMPARISON: CR XR ANKLE LT COMPLETE 05/29/2022 8:51 AM FINDINGS: Bones/joints: No acute fracture. Mild scattered degenerative changes. Achilles enthesopathy is present. Soft tissues: Normal. Vasculature: Vascular calcifications are present. IMPRESSION: No acute findings Dictated and Authenticated by: Jefe Lawrence MD. Ordering:GALLO Mayberry MD
--- NOTE | 2023-02-05 10:20 | DI.VRAD_ITS ---
PROCEDURE INFORMATION: Exam: XR Left Tibia and Fibula Exam date and time: 02/05/2023 10:07 AM Age: 87 years old Clinical indication: Other: Leg pain TECHNIQUE: Imaging protocol: Radiologic exam of the left tibia and fibula. Views: 2 views. COMPARISON: CR XR ANKLE LT COMPLETE 05/29/2022 8:51 AM FINDINGS: Bones/joints: No acute bony abnormalities. Mild scattered degenerative changes. Soft tissues: Normal. Vasculature: Vascular calcifications are present. IMPRESSION: No acute findings. Dictated and Authenticated by: Jefe Lawrence MD. Ordering:GALLO Mayberry MD
[2023-02-05] MEDS: Acetaminophen 325 MG TAB PO (10:26)
[2023-02-05] MEDS: Cephalexin 500 MG CAP PO (10:26)
== END 2023-02-05 10:34 | disposition home or self-care (01) ==
PROVIDERS: Emergency Provider Nurse Practitioner Family; PCP Family Medicine
DX: L03.116 Cellulitis of left lower limb (principal)
CPT/HCPCS: 99284; 73590; 73610

== ENCOUNTER → 2023-04-07 00:38 | Outpatient (CLI) | payer MEDICARE, SELFPAY ==
--- NOTE | 2023-04-07 10:30 | DI.US_ITS ---
APPROVED REPORT EXAM: Comprehensive 2D, Doppler, and color-flow Echocardiogram Patient Location: Out-Patient [facility] Worker: Louise Velasquez RDCS (AE) Indications: LV function, Atrial fibrillation Other Information Study Quality: Fair. Technically limited study due to lung disease. Conclusion Normal left ventricular wall thickness and chamber size. Ejection fraction is 45% with global hypoki nesis Normal right ventricular size and systolic function Both atria are moderately dilated Device lead noted in the right heart Aortic valve is sclerotic and trileaflet with mild regurgitation. There is no hemodynamically signif icant aortic stenosis Mitral annular calcification. Mild to moderate mitral regurgitation Normal tricuspid valve. There is moderate tricuspid regurgitation. Estimated right ventricular syst olic pressure is 39 mmHg Dilated ascending aorta measuring 3.75 cm Wall motion Left Ventricle The left ventricle is normal size. Left ventricular systolic function is moderately decreased. There is normal left ventricular wall thickness. There is global hypokinesis of the left ventricle. There is no ventricular septal defect visualized. LVEF is 45%. Right Ventricle Right ventricle is grossly normal in size. Right ventricular systolic function is grossly normal. Pac emaker lead is present in the right ventricle. Atria The left atrium size is moderately dilated The right atrium size is moderately dilated The interatria l septum is intact with no evidence for an atrial septal defect. Aortic Valve Aortic valve is calcified. Aortic valve is trileaflet. No hemodynamically significant valvular aortic stenosis. mild aortic regurgitation. Mitral Valve There is mitral annular calcification. No evidence of mitral valve stenosis. Mild to moderate mitral regurgitation. Tricuspid Valve The tricuspid valve is normal in structure. There is no tricuspid valve stenosis. Moderate tricuspid regurgitation. The RVSP is 39.0 mmHg. Pulmonic Valve The pulmonary valve is normal in structure. There is no pulmonic valvular stenosis. Trace pulmonic re gurgitation. Great Vessels The aortic root is normal in size. The ascending aorta is mildly dilated. The IVC collapses <50% with inspiration. Pericardium There is no pericardial effusion. 2D Dimensions IVSD d PLAX 1.23 cm M: 0.6-1.2 Ao Root d 3.57 cm M: 3.1 - 3.7 LVPW d PLAX 1.20 cm M: 0.6 - 1.2 Ao Asc Diam d 3.75 cm M: 2.6 - 3.4 LVID d PLAX 4.04 cm M: 4.2 - 5.8 LVDs 3.23 cm M: 2.5 - 4.0 LV EF Teichholz 41.6 % FS 20.08 % LV EDV (Teich) 71.5 mL LV ESV (Teich) 41.8 mL M-Mode TAPSE 1.33 cm (M/F) >1.7 Auto EF LV EDV A4C 73.4 mL LV EDV A2C 92.1 mL LV EDV BP 82.7 mL LV ESV A4C 44.0 mL LV ESV A2C 55.6 mL LV ESV BP 49.0 mL LVEF(%) A4C 40.0 % LVEF(%) A2C 39.6 % LVEF(%) BP 40.7 % LV SV A4C 29.4 ml LV SV A2C 36.5 ml LV SV BP 33.6 ml LV CO A4C 2.1 L/min LV CO A2C 2.6 L/min LV CO BP 2.3 L/min HR A4C 71.29 BPM HR A2C 71.29 BPM LV EDV Index (BP) LA Volume LA Length A4C 5.7 cm LA Length A2C 5.7 cm LA Area A4C s 20.00 cm2 LA Area A2C s 19.76 cm2 LA Vol A4C A-L 59.69 mL LA Vol A2C A-L 58.56 mL LA Vol Biplane A-L 59.3 mL LA Vol/BSA A4C A-L LA Vol/BSA A2C A-L LA Vol/BSA BP A-L 33.3 mL/m2 LA Vol A4C MOD 56.5 mL LA Vol A2C MOD 54.0 mL LA Vol BP MOD 55.0 mL RA Volume RA Area A4C 16.5 cm2 RA ESV A4C (A-L) 41.3mL RA Vol/BSA A4C A-L RA Length A4C 5.6 cm RA ESV A4C (MOD) 39.5mL LV Diastology MV E' medial 0.061 (>0.07 m/s) MV E' lateral 0.111 (>0.1 m/s) Aortic Valve AoV Vmax 2.23 m/s LVOT Vmax 1.14 m/s AoV Peak Grad 37.1 mmHg LVOT Peak Grad 5.2 mmHg AoV Area (Vmax) 1.70 cm2 LVOT VTI 0.247 m AoV VTI 0.405 m LVOT Mean Grad 3.0 mmHg AoV Mean Huan. 1.66 m/s LVOT SV 81.98 mL AoV Mean Grad 12.7 mmHg LVOT Diam s 2.05 cm AoV Area (VTI) 2.03 cm2 AV Regurg Peak Gr. 54.30 mmHg Velocity Ratio 0.51 AR Decel [place] 2.0m/sec2 AR DT 1880 msec AR PHT 545 msec AR Vmax 3.69 m/s Mitral Valve MV Vmax TIPS 1.34 m/s MV Mean Grad 2.2 (<2mmHg) MV VTI 0.355 m Pulmonary Valve PV Vmax 1.06 (0.5-1.5 m/s) RVOT Vmax 0.70 m/s PV Peak Grad 4.5 mmHg RVOT Peak Gr. 1.9 mmHg PV Mean Huan 0.63 m/s RVOT VTI 0.123 m PV Mean Grad 2.0 mmHg RVOT Mean Gr. 1.0 mmHg Tricuspid Valve RA Pressure 8.00 mmHg TR Vmax 2.78 m/s TV S' 0.10 m/s TR Peak Grad 30.9 mmHg RVSP (TR) 39.0 mmHg
== END ==
PROVIDERS: PCP Family Medicine; Visit Provider Internal Medicine Cardiovascular Disease
DX: I50.1 Left ventricular failure, unspecified (principal); I48.91 Unspecified atrial fibrillation
CPT/HCPCS: 93306

== ENCOUNTER → 2023-04-27 12:36 | Outpatient (BNVA) | payer MEDICARE, SELFPAY | PROVIDERS: PCP Family Medicine; Visit Provider Internal Medicine Cardiovascular Disease | DX: Z45.018 Encounter for adjustment and management of other part of cardiac pacemaker (principal) | CPT/HCPCS: 93280 ==

== ENCOUNTER 2023-07-10 11:19 | Emergency (ER) | payer MEDICARE, SELFPAY ==
[2023-07-10] VITALS (9 sets, daily range): BP systolic 133–170; BP diastolic 50–67; PULSE 71–81; RESP 14–18; TEMP 36.8; O2SAT 98–99
--- NOTE | 2023-07-10 12:20 | W.ED.GENAD ---
HPI General Stated Complaint: Cellulitis RYAN: 3 Date/Time Provider Initiated Documentation: 07/10/23 12:20. HPI Narrative: MDM This is a chronically ill-appearing 87-year-old male with history of gout and left lateral malleolus pain, swelling, warmth and tenderness concerning for gouty exacerbation. No surrounding erythema nor streaking signs of infection to suggest cellulitis. Left foot warm and well-perfused with 2+ PT and DP pulses so my suspicion for critical limb ischemia is low so I do not feel that he requires a CT angiogram. No pain out of proportion to suggest necrotizing soft tissue infection. No trauma however given mild effusion I ordered an ankle film. No history of fevers no systemic systems so I feel the patient is appropriate for discharge. He does not have a crystal diagnosis of gout however given his significant pain and his age will defer arthrocentesis at this point in time as I do not want to risk infection nor worsen his pain. Rather will treat his symptoms similarly to prior episodes which have previously resolved with prednisone as prescribed approximately 1 year ago. He is not a diabetic. Will advise elevation & ice. Patient's supportive son is at bedside who will be able to check on the patient. In the absence of any vomiting nausea or diarrhea I do not feel that the patient required laboratory assessment. He is not on a diuretic and takes losartan. Will prescribe him a burst of 4 days of steroids. I have asked health community relations advisor Rianna to have the patient seen later this week by his primary care provider for reassessment. I also advised patient to return if he develops worsening pain fevers streaking signs of infection. Chronic conditions affecting the care of the patient: Prior episodes of gout and left lower extremity cellulitis History obtained from an outside historian: N/A External record review: N/A Medications: Prednisone acetaminophen Social determinants of health affecting disposition: N/A Management discussed with: N/A Treatment/interventions considered: Antibiotics but deferred Response to therapies provided: N/A HPI This is an 87-year-old male with history of interstitial lung disease prior history of gout and left lower extremity cellulitis and left ankle gout arriving via private vehicle to the emergency department in the setting of redness and swelling of left ankle. Patient reports that he was in his usual state of health yesterday. He arrives with his son. He denies any specific trauma to his left ankle. He reports that his symptoms are similar to prior episodes of gout. He has received prednisone in the past. He denies any fevers nausea vomiting. He denies routine ethanol and illicits. He is able to move his ankle well. Exam General: Chronically ill-appearing in no acute distress speaking in complete sentences. Head: Normocephalic, atraumatic. Eye: Extraocular eye movements intact. No conjunctival injection. No scleral icterus. Ear, nose, mouth, throat: Grossly normal inspection. Normal voice, handling secretions normally. Neck: Trachea midline. Cardiovascular: Well-perfused distal extremities. Respiratory: Nonlabored respiration. Gastrointestinal: Nondistended abdomen. Musculoskeletal: Left lateral malleolus tenderness with mild erythema. No streaking signs of infection. No pain out of proportion. Left foot warm and well-perfused with 2+ PT and DP pulses. Cap refill less than 2 seconds in the left toes. Patient is able to dorsi and plantarflex with 5 out of 5 strength in left lower extremity. No proximal tenderness to calf nor knee. Mild left ankle effusion. Skin: Normal for age and race, grossly normal temperature and turgor. No acute rash. Neurologic: Alert and appropriate, no apparent acute deficits. Psychiatric: Mood and manner are appropriate. Grooming and personal hygiene are appropriate. Related Data Home Medications Medication Instructions Recorded Confirmed acetaminophen 650 mg 650 mg PO Q12H 03/05/21 07/10/23 tablet,extended release (Tylenol 8 Hour) melatonin 10 mg capsule 10 mg PO HS PRN 04/10/22 07/10/23 rivaroxaban 15 mg tablet (Xarelto) 15 mg PO DAILY #90 tabs 09/27/22 07/10/23 amlodipine 2.5 mg tablet 5 mg (2 x 2.5 mg) PO DAILY #180 11/10/22 07/10/23 tabs metoprolol succinate 50 mg 25 mg (1/2 x 50 mg) PO .am #90 tabs 11/10/22 07/10/23 tablet,extended release 24 hr valsartan 80 mg tablet 80 mg PO DAILY #90 tabs 02/07/23 07/10/23 bumetanide 1 mg tablet 1 mg PO DAILY #90 tabs 04/19/23 07/10/23 prednisone 50 mg tablet 50 mg PO DAILY #4 tabs 07/10/23 Previous Rx's Medication Instructions Recorded rivaroxaban 15 mg tablet (Xarelto) 15 mg PO DAILY #90 tabs 09/27/22 amlodipine 2.5 mg tablet 5 mg (2 x 2.5 mg) PO DAILY #180 11/10/22 tabs metoprolol succinate 50 mg 25 mg (1/2 x 50 mg) PO .am #90 tabs 11/10/22 tablet,extended release 24 hr valsartan 80 mg tablet 80 mg PO DAILY #90 tabs 02/07/23 bumetanide 1 mg tablet 1 mg PO DAILY #90 tabs 04/19/23 prednisone 50 mg tablet 50 mg PO DAILY #4 tabs 07/10/23 Allergies Allergy/AdvReac Type Severity Reaction Status Date / Time No Known Allergies Allergy Verified 07/10/23 12:54 PFS All Active Problems (Updated 07/10/23 @ 12:57 by Jac Bruno MD) Acute gout of left ankle (Acute) Wound of left leg (Acute ~01/2023) Interstitial lung disease (Acute) Restrictive lung disease (Acute) Hyperkalemia (Acute) ZHU (dyspnea on exertion) (Acute) Erythema (Acute) Shortness of breath (Acute) Impacted cerumen, bilateral (Acute) History of epistaxis (Acute) Impairment of speech discrimination (Acute) Constipation (Acute) Low back pain associated with a spinal disorder other than radiculopathy or spinal stenosis (Acute) Spinal stenosis of lumbar region (Acute) Edema (Acute) Hip pain (Acute) Prediabetes (Acute) Atrial fibrillation (Chronic) Polyp of colon (Chronic 05/26/03) tubular adenoma Raised prostate specific antigen (Acute) Rosacea (Chronic) Shoulder pain (Acute) right shoulder; surgery in 1981; 2005; atrophy 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) Medical History Benign prostatic hyperplasia CHF (congestive heart failure) 02/2021- EF 30-40% Coronary atherosclerosis of [place] coronary vessel 08/2020- echo [facility] normal with EF 63%- [employer] Parker Arteaga 06/16- now seeing Dr Guillen Depressive disorder Hypertension 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[facility], left palate Ventricular arrhythmia Surgical History 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, followed by [facility] at [facility], generator replaced 12/15/09, [facility] History of shoulder surgery Family History Mother Personal history of malignant neoplasm Father Heart disease [place] Sister Personal history of malignant neoplasm Brother Personal history of malignant neoplasm STOMACH Grandfather Heart disease Grandfather Personal history of malignant neoplasm Grandmother Stroke Grandmother Personal history of malignant neoplasm Social History Smoking/Tobacco Use Status: Current every day Tobacco Type: smokeless tobacco Tobacco: How many years used: 80 Smokeless tobacco user: chewing tobacco Quit status: considering quitting Smoking risk assessment performed?: Yes Alcohol Intake: current Alcohol Intake frequency: a few times a month Alcohol type: beer Drug use: Never Substance use type: does not use Household members: spouse Housing: house current occupation: Retired Pets and animals: Yes Pets and animals: dog(s) Sexually active: No Do you think of yourself as: straight/heterosexual Current gender identity: male What is your relationship status?: How often do you talk on the phone with friends or family?: twice per week How often do you attend methodist or restoration services?: 1-3 times per year Do you belong to any clubs or organized social groups?: no Panel score (0-1 are the most socially isolated patients): 1 What type of physical activity do you participate in: none Seatbelt use: sometimes Helmet use: Yes Helmet use: sometimes Drive intox or ride w/intox straddle 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 Course Vital Signs Vital signs: Vital Signs Temperature 36.8 C 07/10/23 11:37 Pulse 73 07/10/23 11:37 Respiratory Rate 16 07/10/23 11:37 Blood Pressure 157/55 H 07/10/23 11:37 Pulse Oximetry 98 07/10/23 11:37 Temperature 36.8 C 07/10/23 11:37 Temperature Source Temporal Artery Scan 07/10/23 11:37 Pulse 73 07/10/23 11:37 Respiratory Rate 16 07/10/23 11:37 Blood Pressure 157/55 H 07/10/23 11:37 Pulse Oximetry 98 07/10/23 11:37 Oxygen Delivery Method Room Air 07/10/23 11:37 Oxygen Flow Rate 0 07/10/23 11:37 Medical Decision Making Quality:SDOH Health Related Social Needs: No Data to Display Discharge Plan Disposition Patient Disposition: Home Discharge Details Clinical Impression: Acute gout of left ankle Primary Care Provider: Robert Hanna ED Provider: Jac Bruno [place] Meds and New Rx's Prescriptions: New prednisone 50 mg tablet 50 mg PO DAILY Qty: 4 0RF Rx Instructions: Please begin taking tomorrow as you have received steroids in the emergency department No Action acetaminophen [Tylenol 8 Hour] 650 mg tablet extended release 650 mg PO Q12H melatonin 10 mg capsule 10 mg PO HS PRN amlodipine 2.5 mg tablet 5 mg PO DAILY Qty: 180 3RF metoprolol succinate 50 mg tablet extended release 24 hr 25 mg PO .am Qty: 90 4RF Rx Instructions: dose reduction 06/08/22 Xarelto 15 mg tablet 15 mg PO DAILY Qty: 90 3RF Rx Instructions: must administer with evening meal valsartan 80 mg tablet 80 mg PO DAILY Qty: 90 3RF bumetanide 1 mg tablet 1 mg PO DAILY Qty: 90 3RF Discharge Instructions Instructions: Gout (ED) Additional Instructions: You are seen in the emergency department for your ankle pain. Your x-ray showed no sign of any fractures. You were diagnosed with gout and given prednisone. Please begin taking the prednisone tomorrow morning. Please follow-up with your primary care provider. Please return to the emergency department if you develop any worsening pain streaking signs of infection or any fevers. Discharge Data Discharge Date/Time-TO BE ENTERED AT DEPARTURE: 07/10/23 13:37
--- NOTE | 2023-07-10 12:30 | DI.RAD_ITS ---
Exam(s) XR ANKLE LT COMPLETE EXAM: XR ANKLE LT COMPLETE CLINICAL HISTORY: Left ankle pain lateral tenderness. TECHNIQUE: 2D digital imaging was performed. COMPARISON: CR,XR XR ANKLE LT COMPLETE from 02/05/2023 FINDINGS: 3 views There is soft tissue swelling over lateral malleolus but no fractures evident. No widening of the an kle mortise. Talar dome unremarkable. No obvious degenerative changes in the ankle. Bone density n ormal. No osseous lesions IMPRESSION: Soft tissue swelling but no fracture. DATA REPOSITORY: RADIATION DOSE DELIVERED:
[2023-07-10] MEDS: Acetaminophen 500 MG TAB 1000 MG PO (12:58)
[2023-07-10] MEDS: predniSONE 20 MG TAB 40 MG PO (12:59)
--- NOTE | 2023-07-10 13:02 | NUR.NOTE ---
Referral faxed to [facility] for Pt to see Dr Hanna for Left Ankle Gout sometime this week.
--- NOTE | 2023-07-10 13:08 | DI.VRAD_ITS ---
PROCEDURE INFORMATION: Exam: XR Left Ankle Exam date and time: 07/10/2023 12:43 PM Age: 87 years old Clinical indication: Other: Left lateral ankle pain lateral ankle tenderness TECHNIQUE: Imaging protocol: Radiologic exam of the left ankle. Views: 3 or more views. COMPARISON: CR XR ANKLE LT COMPLETE 02/05/2023 10:08 AM FINDINGS: Bones/joints: No acute fracture or new osseous abnormality detected compared to 02/05/2023 exam. Alignment at the ankle mortise is anatomic. Soft tissues: Mild nonspecific soft tissue swelling overlies the lateral malleolus. IMPRESSION: No acute osseous abnormality identified. Dictated and Authenticated by: Titi Falcon MD. Ordering:PECAE Nathan MD
== END 2023-07-10 13:37 | disposition home or self-care (01) ==
PROVIDERS: Emergency Provider Emergency Medicine; PCP Family Medicine
DX: M10.9 Gout, unspecified (principal); I11.0 Hypertensive heart disease with heart failure; I50.9 Heart failure, unspecified; I48.91 Unspecified atrial fibrillation; I25.10 Atherosclerotic heart disease of native coronary artery without angina pectoris; J84.9 Interstitial pulmonary disease, unspecified; F17.220 Nicotine dependence, chewing tobacco, uncomplicated; Z95.0 Presence of cardiac pacemaker; Z79.01 Long term (current) use of anticoagulants
CPT/HCPCS: 99284; 73610; J7512

== ENCOUNTER 2023-11-08 05:10 | Outpatient (CLI) | payer MEDICARE, SELFPAY ==
[2023-11-08 13:22] LABS: Hemoglobin A1C 6.3 % (<5.7)
[2023-11-08 13:51] LABS: CREATININE 1.7 mg/dL (0.70-1.30); Estimated GFR 38.53 (mL/min/1.73m2); Potassium 4.9 mmol/L (3.5-5.1)
== END 2023-11-08 05:11 | disposition home or self-care (01) ==
PROVIDERS: PCP Family Medicine; Visit Provider Family Medicine
DX: I10 Essential (primary) hypertension (principal); E11.51 Type 2 diabetes mellitus with diabetic peripheral angiopathy without gangrene
CPT/HCPCS: 36415; 82565; 83036; 84132

== ENCOUNTER 2024-03-06 10:11 | Emergency (ER) | payer MEDICARE, SELFPAY ==
[2024-03-06 10:15] VITALS: BP 173/72; PULSE 97; RESP 14; TEMP 36.6; O2SAT 97
--- NOTE | 2024-03-06 10:25 | ED.GENADUL_ITS ---
Discharge Plan Disposition Patient Disposition: Home Condition: Stable Discharge Details Clinical Impression: Left foot pain Primary Care Provider: Robert Hanna ED Provider: Jeff Shipman Home Meds and New Rx's Prescriptions: New prednisone 20 mg tablet See Rx Instructions .ROUTE .COMPLEX Qty: 24 0RF Rx Instructions: Take 60 mg daily for 4 days, then 40 mg daily for 4 days and then 20 mg daily for 4 days Continued acetaminophen [Tylenol 8 Hour] 650 mg tablet extended release 650 mg PO Q12H melatonin 10 mg capsule 10 mg PO HS PRN amlodipine 2.5 mg tablet 2.5 mg PO DAILY Qty: 90 3RF Xarelto 15 mg tablet 15 mg PO DAILY Qty: 90 3RF Rx Instructions: must administer with evening meal bumetanide 1 mg tablet 1 mg PO DAILY Qty: 90 3RF metoprolol succinate 50 mg tablet extended release 24 hr 25 mg PO .am Qty: 90 4RF Rx Instructions: dose reduction 06/08/22 ketoconazole 2 % cream 1 applic topical BID PRN (Reason: face/chest rash) Qty: 30 2RF valsartan 80 mg tablet See Rx Instructions .ROUTE .COMPLEX Qty: 90 3RF Dose Instruction: TAKE ONE TABLET BY MOUTH EVERY DAY Rx Instructions: TAKE ONE TABLET BY MOUTH EVERY DAY prednisone 20 mg tablet 40 mg PO DAILY PRN (Reason: gout) Qty: 10 0RF Discharge Instructions Additional Instructions: Your pain is likely due to gout Take the prednisone as prescribed You can also take 1000 mg of acetaminophen a 6 hours as needed, do not take more than 3000 mg or 3 g over 24-hour period If not better within a week follow-up with your primary care provider If you feel more ill or have new symptoms such as high fevers return to the emergency department for reevaluation HPI General Mode of arrival: ambulatory . Date/Time Provider Initiated Documentation: 03/06/24 10:16 . Limitations to Documentation: no limitations . Information obtained by: patient . History of Present Illness 88 year old M presents to the emergency department with the chief complaint of right foot pain, described as moderate, Quality is described as aching, and is localized to the right and lower extremity. Patient reports no radiation. Patient started experiencing this week(s) (1) and it has been constant. No relieving factors improve symptom(s), No exacerbating factors reported . Patient notes no other symptoms.. Related Data Home Medications ?Medication ?Instructions ?Recorded ?Confirmed acetaminophen 650 mg 650 mg PO Q12H 03/05/21 03/06/24 tablet,extended release (Tylenol 8 Hour) melatonin 10 mg capsule 10 mg PO HS PRN 04/10/22 03/06/24 ketoconazole 2 % topical cream 1 applic topical BID PRN 11/02/23 03/06/24 face/chest rash #30 grams amlodipine 2.5 mg tablet 2.5 mg PO DAILY #90 tabs 12/28/23 03/06/24 bumetanide 1 mg tablet 1 mg PO DAILY #90 tabs 12/28/23 03/06/24 metoprolol succinate 50 mg 25 mg (1/2 x 50 mg) PO .am #90 tabs 12/28/23 03/06/24 tablet,extended release 24 hr rivaroxaban 15 mg tablet (Xarelto) 15 mg PO DAILY #90 tabs 12/28/23 03/06/24 valsartan 80 mg tablet See Rx Instructions .Route 02/02/24 03/06/24 .COMPLEX #90 tabs prednisone 20 mg tablet 40 mg (2 x 20 mg) PO DAILY PRN 02/20/24 03/06/24 gout #10 tabs prednisone 20 mg tablet See Rx Instructions .Route 03/06/24 .COMPLEX #24 tabs Previous Rx's ?Medication ?Instructions ?Recorded ketoconazole 2 % topical cream 1 applic topical BID PRN 11/02/23 face/chest rash #30 grams amlodipine 2.5 mg tablet 2.5 mg PO DAILY #90 tabs 12/28/23 bumetanide 1 mg tablet 1 mg PO DAILY #90 tabs 12/28/23 metoprolol succinate 50 mg 25 mg (1/2 x 50 mg) PO .am #90 tabs 12/28/23 tablet,extended release 24 hr rivaroxaban 15 mg tablet (Xarelto) 15 mg PO DAILY #90 tabs 12/28/23 valsartan 80 mg tablet See Rx Instructions .Route 02/02/24 .COMPLEX #90 tabs prednisone 20 mg tablet 40 mg (2 x 20 mg) PO DAILY PRN 02/20/24 gout #10 tabs prednisone 20 mg tablet See Rx Instructions .Route 03/06/24 .COMPLEX #24 tabs Allergies Allergy/AdvReac Type Severity Reaction Status Date / Time No Known Allergies Allergy Verified 03/06/24 10:19 General Stated Complaint: Orthopedic RYAN: 4 Review of Systems All systems reviewed & are unremarkable except as noted in HPI and below Constitutional Constitutional: Denies chills, Denies fever(s) and Denies weakness Cardiovascular Cardiovascular: Denies chest pain and Denies dyspnea Respiratory Respiratory: Denies cough and Denies dyspnea Gastrointestinal Gastrointestinal: Denies abdominal pain, Denies nausea and Denies vomiting Musculoskeletal Musculoskeletal: Reports other (foot pain) Neurologic Neurologic: Denies weakness Exam Const General: no acute distress Orientation: alert [facility] Head: normal to inspection Ears: external ears normal General nose exam: external nose normal Mouth: moist mucous membranes Resp Effort & Inspection: normal respiratory effort and able to speak in complete sentences Cardio Rate: regular rate Skin General skin exam: no rashes or lesions noted Neuro General: patient alert and patient oriented x3 Extrem General: full ROM and capillary refill normal Course Vital Signs Vital signs: Vital Signs Temperature 36.6 C 03/06/24 10:15 Pulse 97 H 03/06/24 10:15 Respiratory Rate 14 03/06/24 10:15 Blood Pressure 173/72 H 03/06/24 10:15 Pulse Oximetry 97 03/06/24 10:15 Temperature 36.6 C 03/06/24 10:15 Temperature Source Skin 03/06/24 10:15 Pulse 97 H 03/06/24 10:15 Respiratory Rate 14 03/06/24 10:15 Respiratory Effort Normal, Non-Labored 03/06/24 10:19 Blood Pressure 173/72 H 03/06/24 10:15 Blood Pressure Position Sitting 03/06/24 10:15 Pulse Oximetry 97 03/06/24 10:15 Oxygen Delivery Method Room Air 03/06/24 10:15 Oxygen Flow Rate 0 03/06/24 10:15 Pain Level 7 03/06/24 10:15 Medical Decision Making 88-year-old male comes in with nontraumatic right foot pain. He says he has a history of gout but is unsure if it usually affects his foot. Localizes the pain to the base of the right toe. He denies any fevers or trauma. He appears well on exam, he has mild erythema at the base of the right big toe without warmth, there is no swelling he has tenderness area. I suspect he has a gout flare but will obtain x-rays to exclude fracture. Is not warm to touch and he has no infectious symptoms so doubt cellulitis. X-ray unremarkable shows soft tissue swelling. Patient now states that he does not has a history of gout and has had a similar areas after talking with his family. Will prescribe him prednisone and have him follow-up with his PCP and return precautions given Differential Diagnosis Differential Diagnosis: gout, fracture, cellulitis Quality:SDAR Health Related Social Needs: No Data to Display [facility] All Active Problems (Updated 03/06/24 @ 11:04 by Jeff Shipman MD) Left foot pain (Acute) Wound of left leg (Acute ~01/2023) Interstitial lung disease (Acute) Restrictive lung disease (Acute) Hyperkalemia (Acute) ZHU (dyspnea on exertion) (Acute) Erythema (Acute) Shortness of breath (Acute) Impacted cerumen, bilateral (Acute) History of epistaxis (Acute) Impairment of speech discrimination (Acute) Constipation (Acute) Low back pain associated with a spinal disorder other than radiculopathy or spinal stenosis (Acute) Spinal stenosis of lumbar region (Acute) Edema (Acute) Hip pain (Acute) Prediabetes (Acute) Atrial fibrillation (Chronic) Polyp of colon (Chronic 05/26/03) tubular adenoma Raised prostate specific antigen (Acute) Rosacea (Chronic) Shoulder pain (Acute) right shoulder; surgery in 1981; 2005; atrophy 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) Medical History Benign prostatic hyperplasia CHF (congestive heart failure) 02/2021- EF 30-40% Coronary atherosclerosis of [place] coronary vessel 08/2020- echo [facility] normal with EF 63%- [employer] Parker Arteaga 06/16- now seeing Dr Guillen Depressive disorder Hypertension 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[facility], left palate Ventricular arrhythmia Surgical History 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, followed by [facility] at [facility], generator replaced 12/15/09, [facility] History of shoulder surgery Family History Mother Personal history of malignant neoplasm Father Heart disease [place] Sister Personal history of malignant neoplasm Brother Personal history of malignant neoplasm STOMACH Grandfather Heart disease Grandfather Personal history of malignant neoplasm Grandmother Stroke Grandmother Personal history of malignant neoplasm Social History Smoking/Tobacco Use Status: Current every day Tobacco Type: smokeless tobacco Tobacco: How many years used: 80 Smokeless tobacco user: chewing tobacco Quit status: considering quitting Smoking risk assessment performed?: Yes Alcohol Intake: current Alcohol Intake frequency: a few times a month Alcohol type: beer Drug use: Never Substance use type: does not use Household members: spouse Housing: house current occupation: Retired Pets and animals: Yes Pets and animals: dog(s) Sexually active: No Do you think of yourself as: straight/heterosexual Current gender identity: male What is your relationship status?: How often do you talk on the phone with friends or family?: twice per week How often do you attend sikhism or taoist services?: 1-3 times per year Do you belong to any clubs or organized social groups?: no Panel score (0-1 are the most socially isolated patients): 1 What type of physical activity do you participate in: none Seatbelt use: sometimes Helmet use: Yes Helmet use: sometimes Drive intox or ride w/intox funeral limousine driver: No Do you feel safe at home: Yes Do you feel safe in your relationship?: Yes Additional Social history: pt lives with who is a dialysis patient.
--- NOTE | 2024-03-06 10:49 | DI.RAD_ITS ---
Exam(s) XR FOOT RT COMPLETE EXAM: XR FOOT RT COMPLETE CLINICAL HISTORY: pain base of right big toe. TECHNIQUE: 2D digital imaging was performed. Three views. COMPARISON: No exams were available for comparison FINDINGS: BONES: No acute fracture is present. No bony destructive lesion is seen. Heel spurs. JOINTS: No dislocation present. SOFT TISSUE: Swelling medial to 1st MTP joint. Vascular calcifications. IMPRESSION: Soft tissue swelling. No acute bony abnormality. DATA REPOSITORY: RADIATION DOSE DELIVERED:
[2024-03-06 11:19] VITALS: BP 173/72; PULSE 80; RESP 16; TEMP 36.6; O2SAT 97
[2024-03-06] MEDS: predniSONE 20 MG TAB 60 MG PO (11:21)
== END 2024-03-06 11:24 | disposition home or self-care (01) ==
PROVIDERS: Emergency Provider Emergency Medicine; PCP Family Medicine
DX: M79.674 Pain in right toe(s) (principal); I10 Essential (primary) hypertension; I25.10 Atherosclerotic heart disease of native coronary artery without angina pectoris; Z79.01 Long term (current) use of anticoagulants
CPT/HCPCS: 99283; 73630; J7512

== ENCOUNTER → 2024-03-08 13:23 | Outpatient (BNVA) | payer MEDICARE, SELFPAY | PROVIDERS: PCP Family Medicine; Referring Provider Family Medicine; Visit Provider Internal Medicine Cardiovascular Disease | DX: Z95.0 Presence of cardiac pacemaker (principal); I25.10 Atherosclerotic heart disease of native coronary artery without angina pectoris; I48.20 Chronic atrial fibrillation, unspecified | CPT/HCPCS: 99213 ==

== ENCOUNTER 2024-03-16 05:21 | Emergency (ER) | payer MEDICARE, SELFPAY ==
[2024-03-16 05:26] VITALS: BP 185/56; PULSE 67; RESP 16; TEMP 36.5; O2SAT 100
--- NOTE | 2024-03-16 05:40 | ED.GENADUL_ITS ---
Discharge Plan Disposition Patient Disposition: Home Condition: Good Discharge Details Clinical Impression: Bleeding Primary Care Provider: Robert Hanna ED Provider: Sina Olmos Home Meds and New Rx's Prescriptions: No Action acetaminophen [Tylenol 8 Hour] 650 mg tablet extended release 650 mg PO Q12H melatonin 10 mg capsule 10 mg PO HS PRN amlodipine 2.5 mg tablet 2.5 mg PO DAILY Qty: 90 3RF Xarelto 15 mg tablet 15 mg PO DAILY Qty: 90 3RF Rx Instructions: must administer with evening meal bumetanide 1 mg tablet 1 mg PO DAILY Qty: 90 3RF metoprolol succinate 50 mg tablet extended release 24 hr 25 mg PO .am Qty: 90 4RF Rx Instructions: dose reduction 06/08/22 ketoconazole 2 % cream 1 applic topical BID PRN (Reason: face/chest rash) Qty: 30 2RF valsartan 80 mg tablet See Rx Instructions .ROUTE .COMPLEX Qty: 90 3RF Dose Instruction: TAKE ONE TABLET BY MOUTH EVERY DAY Rx Instructions: TAKE ONE TABLET BY MOUTH EVERY DAY prednisone 20 mg tablet 40 mg PO DAILY PRN (Reason: gout) Qty: 10 0RF prednisone 20 mg tablet See Rx Instructions .ROUTE .COMPLEX Qty: 24 0RF Rx Instructions: Take 60 mg daily for 4 days, then 40 mg daily for 4 days and then 20 mg daily for 4 days Discharge Instructions Instructions: Bleeding After Surgery Additional Instructions: At this time the bleeding has significantly diminished. Please keep the area bandaged. Please sleep sitting upright in a chair to prevent more significant bleeding tomorrow night. Please change your bandage daily. If you notice any worsening of your symptoms, or any new symptoms such as vomiting, diarrhea, fever, chills, shortness of breath, chest pain, numbness, weakness, or fainting , please return immediately to the emergency department for reevaluation. Please follow up with your primary care provider as soon as possible for reassessment and reevaluation. As always, it was a pleasure participating in your medical care today. Referrals: Robert Hanna MD [Primary Care Provider] - HPI General Date/Time Provider Initiated Documentation: 03/16/24 05:22 . HPI Narrative: This is a very pleasant 88-year-old male with a past medical history of hypertension, atrial fibrillation on Xarelto with a cardiac pacemaker, who presents today for bleeding. Patient recently just had a skin lesion excised less than 48 hours ago on his right shoulder. He woke up this evening and had notable amount of blood on his shoulder and in the bed. He came to the ER for further assessment. He denies any pain or trauma. He states that he would have come in earlier but he had to take care of his . He has no other complaints at this time. Related Data Home Medications ?Medication ?Instructions ?Recorded ?Confirmed acetaminophen 650 mg 650 mg PO Q12H 03/05/21 03/08/24 tablet,extended release (Tylenol 8 Hour) melatonin 10 mg capsule 10 mg PO HS PRN 04/10/22 03/08/24 ketoconazole 2 % topical cream 1 applic topical BID PRN 11/02/23 03/08/24 face/chest rash #30 grams amlodipine 2.5 mg tablet 2.5 mg PO DAILY #90 tabs 12/28/23 03/08/24 bumetanide 1 mg tablet 1 mg PO DAILY #90 tabs 12/28/23 03/08/24 metoprolol succinate 50 mg 25 mg (1/2 x 50 mg) PO .am #90 tabs 12/28/23 03/08/24 tablet,extended release 24 hr rivaroxaban 15 mg tablet (Xarelto) 15 mg PO DAILY #90 tabs 12/28/23 03/08/24 valsartan 80 mg tablet See Rx Instructions .Route 02/02/24 03/08/24 .COMPLEX #90 tabs prednisone 20 mg tablet 40 mg (2 x 20 mg) PO DAILY PRN 02/20/24 03/08/24 gout #10 tabs prednisone 20 mg tablet See Rx Instructions .Route 03/06/24 03/08/24 .COMPLEX #24 tabs Previous Rx's ?Medication ?Instructions ?Recorded ketoconazole 2 % topical cream 1 applic topical BID PRN 11/02/23 face/chest rash #30 grams amlodipine 2.5 mg tablet 2.5 mg PO DAILY #90 tabs 12/28/23 bumetanide 1 mg tablet 1 mg PO DAILY #90 tabs 12/28/23 metoprolol succinate 50 mg 25 mg (1/2 x 50 mg) PO .am #90 tabs 12/28/23 tablet,extended release 24 hr rivaroxaban 15 mg tablet (Xarelto) 15 mg PO DAILY #90 tabs 12/28/23 valsartan 80 mg tablet See Rx Instructions .Route 02/02/24 .COMPLEX #90 tabs prednisone 20 mg tablet 40 mg (2 x 20 mg) PO DAILY PRN 02/20/24 gout #10 tabs prednisone 20 mg tablet See Rx Instructions .Route 03/06/24 .COMPLEX #24 tabs Allergies Allergy/AdvReac Type Severity Reaction Status Date / Time No Known Allergies Allergy Verified 03/16/24 05:29 General Stated Complaint: Laceration RYAN: 4 Review of Systems All systems reviewed & are unremarkable except as noted in HPI and below Exam Narrative Exam Narrative: 1.Const: Well-nourished, Well-developed, appearing stated age 2.Eyes: PERRL, no conjunctival injection, and symmetrical lids. 3.ENT: Atraumatic external nose and ears. Moist MM. Neck: Symmetric, trachea midline, No thyromegaly. 4.CVS: +S1/S2, No murmurs or gallops. Peripheral pulses 2+ and equal in all extremities. Brisk capillary refill in all extremities. 5.RESP: Unlabored respiratory effort. Clear to auscultation bilaterally. No wheezes rales or rhonchi 6.GI: Soft, Nontender/Nondistended, No hepatosplenomegaly. No guarding or rebound. 7.MSK: Normocephalic/Atraumatic, Extremities w/o deformity or ttp No cyanosis or clubbing, Normal movement of all extremities 8.Skin: Warm, Dry. Postoperative site is intact, no dehiscence, multiple appropriate sutures. Notable amount of dried blood all over the patient's back. Mild active oozing at the right shoulder. No hemorrhage. 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 Sensation grossly intact, no focal neurologic deficits. 10.Psych: (AAO) x3. Appropriate mood and affect Course Vital Signs Vital signs: Vital Signs Temperature 36.5 C 03/16/24 05:26 Pulse 67 03/16/24 05:26 Respiratory Rate 16 03/16/24 05:26 Blood Pressure 185/56 H 03/16/24 05:26 Pulse Oximetry 100 03/16/24 05:26 Temperature 36.5 C 03/16/24 05:26 Temperature Source Oral 03/16/24 05:26 Pulse 67 03/16/24 05:26 Respiratory Rate 16 03/16/24 05:26 Respiratory Effort Normal, Non-Labored 03/16/24 05:27 Blood Pressure 185/56 H 03/16/24 05:26 Blood Pressure Position Sitting 03/16/24 05:26 Pulse Oximetry 100 03/16/24 05:26 Oxygen Delivery Method Room Air 03/16/24 05:26 Oxygen Flow Rate 0 03/16/24 05:26 Pain Level 0 03/16/24 05:26 Medical Decision Making This is a very pleasant 88-year-old male with a past medical history of hypertension, atrial fibrillation on Xarelto with a cardiac pacemaker, who presents today for bleeding. Patient recently just had a skin lesion excised less than 48 hours ago on his right shoulder. He woke up this evening and had notable amount of blood on his shoulder and in the bed. He came to the ER for further assessment. He denies any pain or trauma. He states that he would have come in earlier but he had to take care of his . He has no other complaints at this time. Exam demonstrates a well-appearing male, no tachycardia or hypotension. No evidence of exsanguination. A notable amount of blood is noted all over the patient's right shoulder back however there is only a small amount of oozing from the surgical site. No large hematoma. The area was cleaned, I then placed Dermabond over the incision site which seemed to resolve most of the oozing. Only small little dewdrop like components continued. This was easily remedied with pressure. Bandaging was replaced with 2 ABD pads, and appropriately tape. Patient tolerated this well. Patient stable for discharge with no evidence of exsanguination. Recommend changing of the bandage every day. Discussed red flags for which to return. I have extensively reviewed the treatment plan and discharge instructions with the patient. I have addressed all patient concerns at this time. The patient was made aware of what symptoms to monitor for that would warrant a return to the emergency department. Discussed the plan with the patient, they demonstrate verbal understanding and agreement with our assessment and plan at this time. The documentation in this chart was dictated using [employer] dictation software. Please excuse any dictation errors. Quality:SDOH Health Related Social Needs: No Data to Display PFSH All Active Problems Bleeding (Acute) Left foot pain (Acute) Wound of left leg (Acute ~01/2023) Interstitial lung disease (Acute) Restrictive lung disease (Acute) Hyperkalemia (Acute) ZHU (dyspnea on exertion) (Acute) Erythema (Acute) Shortness of breath (Acute) Impacted cerumen, bilateral (Acute) History of epistaxis (Acute) Impairment of speech discrimination (Acute) Constipation (Acute) Low back pain associated with a spinal disorder other than radiculopathy or spinal stenosis (Acute) Spinal stenosis of lumbar region (Acute) Edema (Acute) Hip pain (Acute) Prediabetes (Acute) Atrial fibrillation (Chronic) Polyp of colon (Chronic 05/26/03) tubular adenoma Raised prostate specific antigen (Acute) Rosacea (Chronic) Shoulder pain (Acute) right shoulder; surgery in 1981; 2005; atrophy 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) Medical History Hypertension 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, generator replaced 12/15/09, RH Family History Mother Personal history of malignant neoplasm Father Heart disease [place] Sister Personal history of malignant neoplasm Brother Personal history of malignant neoplasm STOMACH Grandfather Heart disease Grandfather Personal history of malignant neoplasm Grandmother Stroke Grandmother Personal history of malignant neoplasm Social History Smoking/Tobacco Use Status: Current every day Tobacco Type: smokeless tobacco Tobacco: How many years used: 80 Smokeless tobacco user: chewing tobacco Quit status: considering quitting Smoking risk assessment performed?: Yes Alcohol Intake: current Alcohol Intake frequency: a few times a month Alcohol type: beer Drug use: Never Substance use type: does not use Household members: spouse Housing: house current occupation: Retired Pets and animals: Yes Pets and animals: dog(s) Sexually active: No Do you think of yourself as: straight/heterosexual Current gender identity: male What is your relationship status?: How often do you talk on the phone with friends or family?: twice per week How often do you attend mandaeism or baptism services?: 1-3 times per year Do you belong to any clubs or organized social groups?: no Panel score (0-1 are the most socially isolated patients): 1 What type of physical activity do you participate in: none Seatbelt use: sometimes Helmet use: Yes Helmet use: sometimes Drive intox or ride w/intox uke driver: No Do you feel safe at home: Yes Do you feel safe in your relationship?: Yes Additional Social history: pt lives with who is a dialysis patient.
== END 2024-03-16 05:47 | disposition home or self-care (01) ==
PROVIDERS: Emergency Provider Student in an Organized Health Care Education/Training Program; PCP Family Medicine
DX: L76.21 Postprocedural hemorrhage of skin and subcutaneous tissue following a dermatologic procedure (principal)
CPT/HCPCS: 99281; 99282

== ENCOUNTER 2024-05-02 08:13 | Outpatient (CLI) | payer MEDICARE, SELFPAY | END 2024-05-02 08:14 | disposition home or self-care (01) | LOC: DI.CARD 08:13 | PROVIDERS: PCP Family Medicine; Visit Provider Internal Medicine Cardiovascular Disease | CPT/HCPCS: 93010 ==

== ENCOUNTER 2024-06-19 00:56 | Emergency (ER) | payer MEDICARE, SELFPAY ==
[2024-06-19] VITALS (31 sets, daily range): BP systolic 131–196; BP diastolic 46–72; PULSE 69–87; RESP 13–30; TEMP 36.6; O2SAT 96–99
[2024-06-19] MEDS: Tranexamic Acid 1,000 MG/10 ML VIAL 1000 MG (01:14)
[2024-06-19] MEDS: Silver Nitrate Stick 1 EACH (01:14)
--- NOTE | 2024-06-19 01:19 | ED.GENADUL_ITS ---
Discharge Plan Disposition Patient Disposition: Home Condition: Good Discharge Details Clinical Impression: Epistaxis, Hypertension, Anticoagulated Primary Care Provider: Robert Hanna ED Provider: Susi Figueroa Home Meds and New Rx's Prescriptions: Continued acetaminophen [Tylenol 8 Hour] 650 mg tablet extended release 650 mg PO Q12H melatonin 10 mg capsule 10 mg PO HS PRN amlodipine 2.5 mg tablet 2.5 mg PO DAILY Qty: 90 3RF Xarelto 15 mg tablet 15 mg PO DAILY Qty: 90 3RF Rx Instructions: must administer with evening meal bumetanide 1 mg tablet 1 mg PO DAILY Qty: 90 3RF metoprolol succinate 50 mg tablet extended release 24 hr 25 mg PO .am Qty: 90 4RF Rx Instructions: dose reduction 06/08/22 ketoconazole 2 % cream 1 applic topical BID PRN (Reason: face/chest rash) Qty: 30 2RF valsartan 80 mg tablet See Rx Instructions .ROUTE .COMPLEX Qty: 90 3RF Dose Instruction: TAKE ONE TABLET BY MOUTH EVERY DAY Rx Instructions: TAKE ONE TABLET BY MOUTH EVERY DAY Discharge Instructions Instructions: Nosebleeds ED Additional Instructions: Leave the nasal packing in place until 06/21. At that point it will need to removed- if you can get in to see ENT that day please do so (phone number is listed below), otherwise return to the emergency department. Return to the emergency department sooner if you bleed through the packing, develop a fever, have thick green or white discahrge from nose, feel generally unwell, or if you have any other concerns. The nasal packing can increase your risk for infection. Referrals: [facility] [Provider Group] Robert Hanna MD [Primary Care Provider] - [facility] General Mode of arrival: EMS . Date/Time Provider Initiated Documentation: 06/19/24 01:18 . Limitations to Documentation: no limitations . Information obtained by: patient, EMS and old records reviewed . HPI Narrative: 88yo M with hx HTN, CAD, pacemaker present, on rivoroxaban, presenting for nosebleed. 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 Did not resolve with holding pressure at home. Has had nosebleeds before, resolved with cautery. Otherwise in his usual state of health with no fevers, chills, chest pain, shortness of breath, lightheadedness, syncope, nausea, vomiting, or other concerns. Related Data Home Medications ?Medication ?Instructions ?Recorded ?Confirmed acetaminophen 650 mg 650 mg PO Q12H 03/05/21 06/19/24 tablet,extended release (Tylenol 8 Hour) melatonin 10 mg capsule 10 mg PO HS PRN 04/10/22 06/19/24 ketoconazole 2 % topical cream 1 applic topical BID PRN 11/02/23 06/19/24 face/chest rash #30 grams amlodipine 2.5 mg tablet 2.5 mg PO DAILY #90 tabs 12/28/23 06/19/24 bumetanide 1 mg tablet 1 mg PO DAILY #90 tabs 12/28/23 06/19/24 metoprolol succinate 50 mg 25 mg (1/2 x 50 mg) PO .am #90 tabs 12/28/23 06/19/24 tablet,extended release 24 hr rivaroxaban 15 mg tablet (Xarelto) 15 mg PO DAILY #90 tabs 12/28/23 06/19/24 valsartan 80 mg tablet See Rx Instructions .Route 02/02/24 06/19/24 .COMPLEX #90 tabs Previous Rx's ?Medication ?Instructions ?Recorded ketoconazole 2 % topical cream 1 applic topical BID PRN 11/02/23 face/chest rash #30 grams amlodipine 2.5 mg tablet 2.5 mg PO DAILY #90 tabs 12/28/23 bumetanide 1 mg tablet 1 mg PO DAILY #90 tabs 12/28/23 metoprolol succinate 50 mg 25 mg (1/2 x 50 mg) PO .am #90 tabs 12/28/23 tablet,extended release 24 hr rivaroxaban 15 mg tablet (Xarelto) 15 mg PO DAILY #90 tabs 12/28/23 valsartan 80 mg tablet See Rx Instructions .Route 02/02/24 .COMPLEX #90 tabs Allergies Allergy/AdvReac Type Severity Reaction Status Date / Time No Known Allergies Allergy Verified 06/19/24 02:07 General Stated Complaint: Epistaxis RYAN: 4 Review of Systems Narrative: see HPI Exam Narrative Exam Narrative: General: Alert, well appearing, well nourished, in no acute distress. Head: Normocephalic, atraumatic Neck: Trachea midline, ?Neck supple. ENT: ?MMM.? Persistent mild bleeding from left nares, no cauterizable source identified. Cardiac: ?RRR, no murmurs appreciated Resp: No respiratory distress. CTAB. Abd: ?Soft, non-distended, nontender Extremities: ?No deformities.? No peripheral edema. Neurologic: GCS 15. ? Moves all extremities freely against gravity Course Vital Signs Vital signs: Vital Signs Temperature 36.6 C 06/19/24 00:57 Pulse 87 06/19/24 00:57 Respiratory Rate 13 06/19/24 00:57 Blood Pressure 196/71 H 06/19/24 00:57 Pulse Oximetry 98 06/19/24 00:57 Temperature 36.6 C 06/19/24 00:57 Temperature Source Temporal Artery Scan 06/19/24 00:57 Pulse 87 06/19/24 00:57 Pulse 70 06/19/24 01:07 Respiratory Rate 24 06/19/24 01:07 Blood Pressure 196/71 H 06/19/24 00:57 Blood Pressure Position Sitting 06/19/24 00:57 Pulse Oximetry 98 06/19/24 00:57 Oxygen Delivery Method Room Air 06/19/24 00:57 Oxygen Flow Rate 0 06/19/24 00:57 Pain Level 0 06/19/24 00:57 Medical Decision Making 88yo M with hx HTN, CAD, pacemaker present, on rivoroxaban, presenting for nosebleed. 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 Hypertensive on arrival with EMS, vital signs otherwise reassuring. BP improved to 154/61 on reassessment without intervention. On exam slow bleed noted from left nares, unable to identify cauterizable source. TxA applied and anterior rhapid rhino placed. CBC shows Hg of 13.1 which is baseline for pt on [facility] record review, elevated coags consistent with known AC and not requiring reversal. On reassessment slight trickle from left nares around rhino, pt notes some blood trickling into the back of his mouth. Additional air inflated with cessation of both these. On subsequent reassessment to further bleeding from nares, does still feel a scant amount of blood in the back of his throat. Small amount of additional air inflated. Observed in the ED for an additional hour with no further bleeding. Repeat vital signs remain reassuring and he has no lightheadedness. No concerned for hemodynamically significant hemmoraghe. Discharge home with plan to return to the ED (or see ENT if available) on 06/21 for removal for rapid rhino. Would not prescribe abx ppx. S/s infection to prompt return to the emergency department reviewed with patient and family. Discharged home; discharge instructions and return precautions were reviewed with patient and family who verbalized understanding. All questions were answered and they are in full agreement with the plan. Lab Data Lab results reviewed: Yes I reviewed the patient's lab results. Labs: Laboratory Tests Range/Units 06/19/24 01:36 WBC (4.4-10.8) 10^3/uL 9.36 RBC (4.36-5.78) 10^6/uL 4.60 Hgb (13.5-17.5) g/dL 13.1 L Hct (40.0-50.0) % 41.3 MCV (80-95) fL 90 MCH (27.0-33.0) pg 28.5 MCHC (32.0-36.0) % 31.7 L RDW (11.8-14.1) % 14.4 H Plt Count (130-400) 10^3/uL 276 MPV (8.0-11.0) fL 9.6 PT (9.1-11.1) sec 14.8 H INR (0.9-1.1) 1.5 H APTT (23.6-32.8) sec 50.4 H Quality:SDOH Health Related Social Needs: No Data to Display PFSH All Active Problems (Updated 06/19/24 @ 02:28 by Susi Figueroa MD) Anticoagulated (Acute) Hypertension (Chronic) Epistaxis (Acute) Wound of left leg (Acute ~01/2023) Interstitial lung disease (Acute) Restrictive lung disease (Acute) Hyperkalemia (Acute) ZHU (dyspnea on exertion) (Acute) Erythema (Acute) Shortness of breath (Acute) Impacted cerumen, bilateral (Acute) History of epistaxis (Acute) Impairment of speech discrimination (Acute) Constipation (Acute) Low back pain associated with a spinal disorder other than radiculopathy or spinal stenosis (Acute) Spinal stenosis of lumbar region (Acute) Edema (Acute) Hip pain (Acute) Prediabetes (Acute) Atrial fibrillation (Chronic) Polyp of colon (Chronic 05/26/03) tubular adenoma Raised prostate specific antigen (Acute) Rosacea (Chronic) Shoulder pain (Acute) right shoulder; surgery in 1981; 2005; atrophy 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, generator replaced 12/15/09, RH Family History Mother Personal history of malignant neoplasm Father Heart disease [place] Sister Personal history of malignant neoplasm Brother Personal history of malignant neoplasm STOMACH Grandfather Heart disease Grandfather Personal history of malignant neoplasm Grandmother Stroke Grandmother Personal history of malignant neoplasm Social History Smoking/Tobacco Use Status: Current every day Tobacco Type: smokeless tobacco Tobacco: How many years used: 80 Smokeless tobacco user: chewing tobacco Quit status: considering quitting Smoking risk assessment performed?: Yes Alcohol Intake: current Alcohol Intake frequency: a few times a month Alcohol type: beer Drug use: Never Substance use type: does not use Household members: spouse Housing: house current occupation: Retired Pets and animals: Yes Pets and animals: dog(s) Sexually active: No Do you think of yourself as: straight/heterosexual Current gender identity: male What is your relationship status?: How often do you talk on the phone with friends or family?: twice per week How often do you attend jainism or jew services?: 1-3 times per year Do you belong to any clubs or organized social groups?: no Panel score (0-1 are the most socially isolated patients): 1 What type of physical activity do you participate in: none Seatbelt use: sometimes Helmet use: Yes Helmet use: sometimes Drive intox or ride w/intox certified driver examiner: No Do you feel safe at home: Yes Do you feel safe in your relationship?: Yes Additional Social history: pt lives with who is a dialysis patient.
[2024-06-19 01:41] LABS: HCT 41.3 % (40.0-50.0); HGB 13.1 g/dL (13.5-17.5); MCH 28.5 pg (27.0-33.0); MCHC 31.7 % (32.0-36.0); MCV 90 fL (80-95); MPV 9.6 fL (8.0-11.0); Platelet Count 276 10^3/uL (130-400); RDW 14.4 % (11.8-14.1); RDW-SD 47.2 fL; WBC 9.36 10^3/uL (4.4-10.8)
[2024-06-19 01:55] LABS: INR 1.5 (0.9-1.1); PTT Activated 50.4 sec (23.6-32.8); Prothrombin Time 14.8 sec (9.1-11.1)
== END 2024-06-19 04:48 | disposition home or self-care (01) ==
PROVIDERS: Emergency Provider Student in an Organized Health Care Education/Training Program; PCP Family Medicine
DX: R04.0 Epistaxis (principal); I10 Essential (primary) hypertension; I25.10 Atherosclerotic heart disease of native coronary artery without angina pectoris; F17.290 Nicotine dependence, other tobacco product, uncomplicated; Z79.01 Long term (current) use of anticoagulants; Z95.0 Presence of cardiac pacemaker
CPT/HCPCS: 36415; 85027; 99283; 85610; 85730

== ENCOUNTER 2024-06-21 08:57 | Emergency (ER) | payer MEDICARE, SELFPAY ==
--- NOTE | 2024-06-21 09:05 | ED.GENADUL_ITS ---
Discharge Plan Disposition Patient Disposition: Home Condition: Good Discharge Details Clinical Impression: Encounter for removal of nasal packing Primary Care Provider: Robert Hanna ED Provider: Teagan Dorantes Home Meds and New Rx's Prescriptions: No Action acetaminophen [Tylenol 8 Hour] 650 mg tablet extended release 650 mg PO Q12H melatonin 10 mg capsule 10 mg PO HS PRN amlodipine 2.5 mg tablet 2.5 mg PO DAILY Qty: 90 3RF Xarelto 15 mg tablet 15 mg PO DAILY Qty: 90 3RF Rx Instructions: must administer with evening meal bumetanide 1 mg tablet 1 mg PO DAILY Qty: 90 3RF metoprolol succinate 50 mg tablet extended release 24 hr 25 mg PO .am Qty: 90 4RF Rx Instructions: dose reduction 06/08/22 ketoconazole 2 % cream 1 applic topical BID PRN (Reason: face/chest rash) Qty: 30 2RF valsartan 80 mg tablet See Rx Instructions .ROUTE .COMPLEX Qty: 90 3RF Dose Instruction: TAKE ONE TABLET BY MOUTH EVERY DAY Rx Instructions: TAKE ONE TABLET BY MOUTH EVERY DAY Discharge Instructions Additional Instructions: Call your primary care provider's office to schedule a follow-up appointment in the next week or two for reassessment. Please do not blow your nose for the next 3 days. Do not pick your nose or at the scabs in your nose- let them heal. I recommend they have a humidifier running in each room, especially as you have wood heat. A hydroma there may be helpful at home, indoor humidity should be between 40 and 60% for comfort and to prevent nosebleeds in the winter. Gently use saline nasal spray every 2-3 hours to help maintain moisture. He may apply a thin coating of Vaseline or [place] saline nasal gel twice a day, especially at night. Return to emergency care if you develop new bleeding from your nose that unable to be controlled, uncontrolled bleeding, head injury, feel like you are going to pass out, fever/chills, or if you are very worried and need to be rechecked again immediately Referrals: Robert Hanna MD [Primary Care Provider] - HPI General Date/Time Provider Initiated Documentation: 06/21/24 09:03 . HPI Narrative: Bebe is a 88year old male who presents to the emergency department today for evaluation of removal of nasal packing. He has heating at home and is exclusively blood, developed spontaneous nosebleed on 1224, was treated in the emergency department and Rhino Rocket was placed in the left nare. He reports he has not had any leaking down his throat or from his nare since then. He has been comfortable with packing in place. No recent general malaise, fever/chills, or feeling unwell; has been feeling at baseline health. Past medical history is significant for A-fib on anticoagulation with rivaroxaban. He does have a history of nosebleeds in the past. Son says that they recently got a humidifier for the home, as he did not have one previously. Physical exam remarkable for Rhino Rocket in place to the left nare, no active bleeding or oozing. Bebe is alert and oriented, no acute distress. No bleeding in posterior oropharynx. Voice is clear. After removal of Rhino Rocket, which was performed without difficulty, Afrin and nasal saline being used to help soften up surrounding clots. Bebe did continue to have some mild bleeding from the anterior nare, only a small trickle. Topical lidocaine with epi applied with good resolution of bleeding. A small 2 mm laceration was noted at the medial lianna, no active bleeding. RN Yumi to apply a thin layer of petroleum jelly or antibiotic ointment to help prevent rebleeding History and presentation consistent with epistaxis. No red flags concerning for infectious sequelae, severe blood loss, trauma, or other acute bleeding at this time indicating need for labs or diagnostic imaging. Bebe did have some continued oozing, requiring multiple treatments of lidocaine with epi on the gauze and silver nitrate, bleeding was able to be fully controlled, with no continued dripping. Reviewed discharge instructions with patient and his son, including symptomatic management, importance of humidity in the home, and red flags indicating need for return to emergency care Related Data Home Medications ?Medication ?Instructions ?Recorded ?Confirmed acetaminophen 650 mg 650 mg PO Q12H 03/05/21 06/21/24 tablet,extended release (Tylenol 8 Hour) melatonin 10 mg capsule 10 mg PO HS PRN 04/10/22 06/21/24 ketoconazole 2 % topical cream 1 applic topical BID PRN 11/02/23 06/21/24 face/chest rash #30 grams amlodipine 2.5 mg tablet 2.5 mg PO DAILY #90 tabs 12/28/23 06/21/24 bumetanide 1 mg tablet 1 mg PO DAILY #90 tabs 12/28/23 06/21/24 metoprolol succinate 50 mg 25 mg (1/2 x 50 mg) PO .am #90 tabs 12/28/23 06/21/24 tablet,extended release 24 hr rivaroxaban 15 mg tablet (Xarelto) 15 mg PO DAILY #90 tabs 12/28/23 06/21/24 valsartan 80 mg tablet See Rx Instructions .Route 02/02/24 06/21/24 .COMPLEX #90 tabs Previous Rx's ?Medication ?Instructions ?Recorded ketoconazole 2 % topical cream 1 applic topical BID PRN 11/02/23 face/chest rash #30 grams amlodipine 2.5 mg tablet 2.5 mg PO DAILY #90 tabs 12/28/23 bumetanide 1 mg tablet 1 mg PO DAILY #90 tabs 12/28/23 metoprolol succinate 50 mg 25 mg (1/2 x 50 mg) PO .am #90 tabs 12/28/23 tablet,extended release 24 hr rivaroxaban 15 mg tablet (Xarelto) 15 mg PO DAILY #90 tabs 12/28/23 valsartan 80 mg tablet See Rx Instructions .Route 02/02/24 .COMPLEX #90 tabs Allergies Allergy/AdvReac Type Severity Reaction Status Date / Time No Known Allergies Allergy Verified 06/21/24 09:11 General RYAN: 4 Review of Systems Narrative: See HPI Exam Const General: cooperative, healthy appearing, comfortable, no acute distress and well developed Nutritional Appearance: average body habitus Orientation: alert and oriented x3 HENMT Head: normal to inspection General nose exam: epistaxis on the right anterior source, dried blood present and active bleeding (Scant bleeding from nare, able to be controlled) Nose image: 2 1. small 2 mm superficial laceration inside nare, bleeding able to be controlled with lido w/ epi and silver nitrate Mouth: oral mucosae normal, lip normal and tongue normal Throat: posterior oropharynx normal and no postnasal drainage Neck Neck: normal visual inspection Resp Effort & Inspection: normal respiratory effort and able to speak in complete sentences Procedures Other Description: Rhino Rocket removed from left nare Medical Decision Making Quality:SDOH Health Related Social Needs: 2 No Data to Display [facility] All Active Problems (Updated 06/21/24 @ 09:43 by Teagan Cotter) Encounter for removal of nasal packing (Acute) Anticoagulated (Acute) Hypertension (Chronic) Epistaxis (Acute) Wound of left leg (Acute ~01/2023) Interstitial lung disease (Acute) Restrictive lung disease (Acute) Hyperkalemia (Acute) ZHU (dyspnea on exertion) (Acute) Erythema (Acute) Shortness of breath (Acute) Impacted cerumen, bilateral (Acute) History of epistaxis (Acute) Impairment of speech discrimination (Acute) Constipation (Acute) Low back pain associated with a spinal disorder other than radiculopathy or spinal stenosis (Acute) Spinal stenosis of lumbar region (Acute) Edema (Acute) Hip pain (Acute) Prediabetes (Acute) Atrial fibrillation (Chronic) Polyp of colon (Chronic 05/26/03) tubular adenoma Raised prostate specific antigen (Acute) Rosacea (Chronic) Shoulder pain (Acute) right shoulder; surgery in 1981; 2005; atrophy 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) Medical History Hypertension 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[facility] [place] [facility] Benign prostatic hyperplasia Coronary atherosclerosis of [place] coronary vessel 08/2020- [place] [facility] [place] with EF 63%- 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/16- now seeing Dr Guillen Depressive disorder Ventricular arrhythmia Surgical History History of shoulder surgery 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, [place] [facility] [place] [facility], generator replaced 12/15/09, RH Family History Mother Personal history of malignant neoplasm Father Heart disease [place] Sister Personal history of malignant neoplasm Brother Personal history of malignant neoplasm STOMACH Grandfather Heart disease Grandfather Personal history of malignant neoplasm Grandmother Stroke Grandmother Personal history of malignant neoplasm Social History Smoking/Tobacco Use Status: Current every day Tobacco Type: smokeless tobacco Tobacco: How many years used: 80 Smokeless tobacco user: chewing tobacco Quit status: considering quitting Smoking risk assessment performed?: Yes Alcohol Intake: current Alcohol Intake frequency: a few times a month Alcohol type: beer Drug use: Never Substance use type: does not use Household members: spouse Housing: house current occupation: Retired Pets and animals: Yes Pets and animals: dog(s) Sexually active: No Do you think of yourself as: straight/heterosexual Current gender identity: male What is your relationship status?: How often do you talk on the phone with friends or family?: twice per week How often do you attend orthodox or jehovah's witness services?: 1-3 times per year Do you belong to any clubs or organized social groups?: no Panel score (0-1 are the most socially isolated patients): 1 What type of physical activity do you participate in: none Seatbelt use: sometimes Helmet use: Yes Helmet use: sometimes Drive intox or ride w/intox cdl dedicated 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
[2024-06-21 09:09] VITALS: BP 138/60; PULSE 88; RESP 20; TEMP 37; O2SAT 98
[2024-06-21] MEDS: Oxymetazolone 0.05% SPRAY 15 ML BTL NS (09:13)
[2024-06-21] MEDS: Lidocaine 1% Pres-Free W/EPI 1/200,000 30 ML VIAL (10:24)
[2024-06-21 10:59] VITALS: BP 135/74; PULSE 69; RESP 20; O2SAT 97
[2024-06-21] MEDS: Silver Nitrate Stick 1 EACH (11:02)
[2024-06-21 12:09] VITALS: BP 142/84; PULSE 75; RESP 18; O2SAT 99
== END 2024-06-21 12:09 | disposition home or self-care (01) ==
PROVIDERS: Emergency Provider Nurse Practitioner Family; PCP Family Medicine
DX: R04.0 Epistaxis (principal)
CPT/HCPCS: 99283; J2004

== ENCOUNTER 2024-09-26 07:54 | Outpatient (CLI) | payer MEDICARE, SELFPAY ==
--- NOTE | 2024-09-26 07:45 | RT.EKG_ITS ---
APPROVED REPORT Exam: Resting ECG Reason for Exam: afib Patient Location: O HR:81 bpm ECG Measurements Heart Rate 81 AXIS OK 72 P 0 QRSd 159 QRS 99 QT 398 T 254 QTc 462 Conclusion Ventricular-paced rhythm No further analysis attempted due to paced rhythm
== END 2024-09-26 07:55 | disposition home or self-care (01) ==
LOC: DI.CARD 07:55
PROVIDERS: PCP Family Medicine; Visit Provider Internal Medicine Cardiovascular Disease
DX: I48.20 Chronic atrial fibrillation, unspecified (principal)
CPT/HCPCS: 93010

== ENCOUNTER → 2024-09-26 09:15 | Outpatient (BNVA) | payer MEDICARE, SELFPAY | PROVIDERS: PCP Family Medicine; Visit Provider Internal Medicine Cardiovascular Disease | DX: I48.20 Chronic atrial fibrillation, unspecified (principal); Z95.0 Presence of cardiac pacemaker | CPT/HCPCS: 93280 ==

== ENCOUNTER 2024-09-27 17:57 | Emergency (ER) | payer MEDICARE, SELFPAY ==
[2024-09-27 18:01] VITALS: BP 176/81; PULSE 85; RESP 18; TEMP 36.6; O2SAT 98
[2024-09-27] MEDS: Silver Nitrate Stick 1 EACH (18:30)
[2024-09-27] MEDS: Cellulose,Oxidized 2X3 PKT 1 EACH MC (18:30)
--- NOTE | 2024-09-27 18:38 | ED.GENADUL_ITS ---
Discharge Plan Disposition Patient Disposition: Home Condition: Stable Discharge Details Clinical Impression: Bleeding from right ear Primary Care Provider: Robert Hanna ED Provider: Olena Calle Home Meds and New Rx's Prescriptions: No Action acetaminophen [Tylenol 8 Hour] 650 mg tablet extended release 650 mg PO Q12H melatonin 10 mg capsule 10 mg PO HS PRN valsartan 80 mg tablet See Rx Instructions .ROUTE .COMPLEX Qty: 90 3RF Dose Instruction: TAKE ONE TABLET BY MOUTH EVERY DAY Rx Instructions: TAKE ONE TABLET BY MOUTH EVERY DAY amlodipine 2.5 mg tablet 2.5 mg PO DAILY Qty: 90 3RF Xarelto 15 mg tablet 15 mg PO DAILY Qty: 90 3RF Rx Instructions: must administer with evening meal metoprolol succinate 50 mg tablet extended release 24 hr 25 mg PO .am Qty: 90 4RF Rx Instructions: dose reduction 06/08/22 ketoconazole 2 % cream 1 applic topical BID PRN (Reason: face/chest rash) Qty: 30 2RF Discharge Instructions Instructions: Taking care of cuts, scrapes, and puncture wounds, Wound Care ED Additional Instructions: A special dressing called Surgicel was applied to the bleeding lesion. Please keep this on and allow to fall off on its own. Try not to touch the area is much as possible. If it begins bleeding again please apply strong pressure behind the ear and in front of the ear as shown for approximately 15 minutes. If it continues to bleed please follow-up with [place] and your provider who performed the procedure. You may also return to this ER if needed. Thank you for allowing us to care for you today. Referrals: Robert Hanna MD [Primary Care Provider] - 3 days HPI General Date/Time Provider Initiated Documentation: 09/27/24 17:59 . Limitations to Documentation: no limitations and physical limitation (Hard of hearing) . Information obtained by: patient, family, RN notes reviewed and old records reviewed . HPI Narrative: 89-year-old male presents to the ER with a chief complaint of right ear lesion bleeding after having a growth removed to his right pinna at offsite facility prior to arrival. He reports that it started bleeding around 330. He does take Xarelto. No other complaints or associated symptoms. He does have a history of BPH arthrosclerosis, hypertension squamous cell carcinoma depressive disorder and ventricular arrhythmia. Does have pacemaker. Related Data Home Medications ?Medication ?Instructions ?Recorded ?Confirmed acetaminophen 650 mg 650 mg PO Q12H 03/05/21 09/27/24 tablet,extended release (Tylenol 8 Hour) melatonin 10 mg capsule 10 mg PO HS PRN 04/10/22 09/27/24 amlodipine 2.5 mg tablet 2.5 mg PO DAILY #90 tabs 12/28/23 09/27/24 metoprolol succinate 50 mg 25 mg (1/2 x 50 mg) PO .am #90 tabs 12/28/23 09/27/24 tablet,extended release 24 hr rivaroxaban 15 mg tablet (Xarelto) 15 mg PO DAILY #90 tabs 12/28/23 09/27/24 valsartan 80 mg tablet See Rx Instructions .Route 07/10/24 09/27/24 .COMPLEX #90 tabs ketoconazole 2 % topical cream 1 applic topical BID PRN 07/17/24 09/27/24 face/chest rash #30 grams Previous Rx's ?Medication ?Instructions ?Recorded amlodipine 2.5 mg tablet 2.5 mg PO DAILY #90 tabs 12/28/23 metoprolol succinate 50 mg 25 mg (1/2 x 50 mg) PO .am #90 tabs 12/28/23 tablet,extended release 24 hr rivaroxaban 15 mg tablet (Xarelto) 15 mg PO DAILY #90 tabs 12/28/23 valsartan 80 mg tablet See Rx Instructions .Route 07/10/24 .COMPLEX #90 tabs ketoconazole 2 % topical cream 1 applic topical BID PRN 07/17/24 face/chest rash #30 grams Allergies Allergy/AdvReac Type Severity Reaction Status Date / Time No Known Allergies Allergy Verified 09/27/24 18:04 General Stated Complaint: Laceration RYAN: 4 Review of Systems All systems reviewed & are unremarkable except as noted in HPI and below ENT Ears, Nose, Mouth, and Throat: Reports ear discharge (External bleeding lesion) Exam [facility] Ears: external ear abnormal other (See diagram, bleeding lesion from a apparent punch biopsy) Outer ear/TM images: 2 1. Lesion approximately 7 mm x 7 mm, small punctate area of oozing noted centrally. Course Vital Signs Vital signs: Vital Signs Temperature 36.6 C 09/27/24 18:01 Pulse 85 09/27/24 18:01 Respiratory Rate 18 09/27/24 18:01 Blood Pressure 176/81 H 09/27/24 18:01 Pulse Oximetry 98 09/27/24 18:01 Temperature 36.6 C 09/27/24 18: Temperature Source Oral 09/27/24 18: Pulse 85 09/27/24 18:01 Respiratory Rate 18 09/27/24 18:01 Blood Pressure 176/81 H 09/27/24 18:01 Pulse Oximetry 98 09/27/24 18:01 Pain Level 0 09/27/24 18:01 Medical Decision Making 89-year-old male presents to the ER with a chief complaint of right ear lesion bleeding after having a growth removed to his right pinna at offsite facility prior to arrival. He reports that it started bleeding around 330. He does take Xarelto. No other complaints or associated symptoms. He does have a history of BPH arthrosclerosis, hypertension squamous cell carcinoma depressive disorder and ventricular arrhythmia. Does have pacemaker. 1838: Attempted bleeding cessation with silver nitrate which was unsuccessful. I did remove a large clot to the area. Surgicel dressing applied, hemostasis was successful. Bleeding is controlled at this time. Gauze dressing applied behind the ear and on top. Instructed to apply pressure for 15 minutes if starts to bleed again. If continued bleeding to return to [place] to see the provider that did this. They verbalized understanding. This text was generated using [employer] system, please disregard any oddities of phrase or misspellings. Quality:SDOH Health Related Social Needs: 2 No Data to Display PFSH All Active Problems (Updated 09/27/24 @ 18:44 by Olena Calle NP) Bleeding from right ear (Acute) Wound of left leg (Acute ~01/2023) Interstitial lung disease (Acute) Restrictive lung disease (Acute) Hyperkalemia (Acute) ZHU (dyspnea on exertion) (Acute) Erythema (Acute) Shortness of breath (Acute) Impacted cerumen, bilateral (Acute) History of epistaxis (Acute) Impairment of speech discrimination (Acute) Constipation (Acute) Low back pain associated with a spinal disorder other than radiculopathy or spinal stenosis (Acute) Spinal stenosis of lumbar region (Acute) Edema (Acute) Hip pain (Acute) Prediabetes (Acute) Atrial fibrillation (Chronic) Polyp of colon (Chronic 05/26/03) tubular adenoma Raised prostate specific antigen (Acute) Rosacea (Chronic) Shoulder pain (Acute) right shoulder; surgery in 1981; 2006; atrophy 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) Medical History Hypertension 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[facility] [place] Benign prostatic hyperplasia Coronary atherosclerosis of [place] coronary vessel 08/2020- [place] [facility] [place] normal with EF 63%- 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/16- now seeing Dr Guillen Depressive disorder Ventricular arrhythmia Surgical History History of shoulder surgery 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, [place] [facility] [facility], generator replaced 12/15/09, RH Family History Mother Personal history of malignant neoplasm Father Heart disease [place] Sister Personal history of malignant neoplasm Brother Personal history of malignant neoplasm STOMACH Grandfather Heart disease Grandfather Personal history of malignant neoplasm Grandmother Stroke Grandmother Personal history of malignant neoplasm Social History Smoking/Tobacco Use Status: Current every day Tobacco Type: smokeless tobacco Tobacco: How many years used: 80 Smokeless tobacco user: chewing tobacco Quit status: considering quitting Smoking risk assessment performed?: Yes Alcohol Intake: current Alcohol Intake frequency: a few times a month Alcohol type: beer Drug use: Never Substance use type: does not use Household members: spouse Housing: house current occupation: Retired Pets and animals: Yes Pets and animals: dog(s) Sexually active: No Do you think of yourself as: straight/heterosexual Current gender identity: male What is your relationship status?: How often do you talk on the phone with friends or family?: twice per week How often do you attend mandaeism or restorationism services?: 1-3 times per year Do you belong to any clubs or organized social groups?: no Panel score (0-1 are the most socially isolated patients): 1 What type of physical activity do you participate in: none Seatbelt use: sometimes Helmet use: Yes Helmet use: sometimes Drive intox or ride w/intox company driver: No Do you feel safe at home: Yes Do you feel safe in your relationship?: Yes Additional Social history: pt lives with who is a dialysis patient. PAWSS Have you Been Recently Intoxicated or Drunk Within the Last 30 days?: No Have you Ever Experienced Previous Episodes of Alcohol Withdrawal?: No Have you ever Experienced Withdrawal Seizures?: No Have you ever Experienced Delirium Tremens(DT)s?: No Have you ever undergone Alcohol Rehabilitation Treatment (i.e, inpt ot outpatient treatment programs)?: No Have you ever Experienced Blackouts?: No Have you ever Combined Alcohol with other Downers within the last 90 days?: No Have you ever Combined Alcohol with any other Substance of Abuse during the last 90 days?: No Positive Blood Alcohol level on Presentation? [PCS.BAL]: No Result: 0
== END 2024-09-27 18:54 | disposition home or self-care (01) ==
PROVIDERS: Emergency Provider Registered Nurse Emergency; PCP Family Medicine
DX: L76.21 Postprocedural hemorrhage of skin and subcutaneous tissue following a dermatologic procedure (principal); I10 Essential (primary) hypertension; I25.10 Atherosclerotic heart disease of native coronary artery without angina pectoris; I48.91 Unspecified atrial fibrillation; F17.290 Nicotine dependence, other tobacco product, uncomplicated; Z95.0 Presence of cardiac pacemaker; Z79.01 Long term (current) use of anticoagulants
CPT/HCPCS: 99283

== ENCOUNTER 2025-01-10 08:31 | Outpatient (REF) | payer MEDICARE, SELFPAY | END 2025-01-10 08:32 | disposition home or self-care (01) | LOC: LBN 08:31 | PROVIDERS: PCP Family Medicine; Referring Provider Family Medicine; Visit Provider Physical Therapy Assistant | DX: S40.869A Insect bite (nonvenomous) of unspecified upper arm, initial encounter (principal); W57.XXXA Bitten or stung by nonvenomous insect and other nonvenomous arthropods, initial encounter | CPT/HCPCS: 87168 ==

== ENCOUNTER → 2025-01-10 08:31 | Outpatient (BNVA) | payer MEDICARE, SELFPAY | PROVIDERS: PCP Family Medicine; Referring Provider Family Medicine; Visit Provider Physical Therapy Assistant | DX: L98.9 Disorder of the skin and subcutaneous tissue, unspecified (principal); S40.869A Insect bite (nonvenomous) of unspecified upper arm, initial encounter; W57.XXXA Bitten or stung by nonvenomous insect and other nonvenomous arthropods, initial encounter | CPT/HCPCS: 99214 ==

== ENCOUNTER → 2025-03-07 13:31 | Outpatient (BNVA) | payer MEDICARE, SELFPAY | PROVIDERS: PCP Family Medicine; Visit Provider Internal Medicine Cardiovascular Disease | DX: R06.02 Shortness of breath (principal); I48.20 Chronic atrial fibrillation, unspecified; Z95.0 Presence of cardiac pacemaker | CPT/HCPCS: 99213 ==

== ENCOUNTER 2025-03-20 01:40 | Outpatient (CLI) | payer MEDICARE, SELFPAY ==
--- NOTE | 2025-03-20 07:30 | DI.US_ITS ---
APPROVED REPORT EXAM: Comprehensive 2D, Doppler, and color-flow Echocardiogram Patient Location: Out-Patient Integrated Logistics Support Manager: Louise Velasquez RDCS (AE) Indications: Recheck LV function, chronic atrial fibrillation, SOB Other Information Study Quality: Adequate. Technically limited study due to body habitus. Conclusion Mild concentric left ventricular hypertrophy. Ejection fraction is 50%. There are no segmental wall motion abnormalities Grossly normal right ventricular size and function Normal right atrial size. Moderately dilated left atrium Device lead noted in the right heart The aortic valve is sclerotic and probably trileaflet. There is moderate aortic stenosis. Peak gradient is 40, mean 26 mmHg with a calculated aortic valve area of 1.1 cm??. Mild aortic regurgitation Mitral annular calcification. Thickened mitral leaflets. Mild mitral regurgitation Mild tricuspid regurgitation. Estimated right ventricular systolic pressure is 45 mmHg Mildly dilated ascending aorta 3.6 cm Wall motion Left Ventricle The left ventricle is normal size. Left ventricular systolic function is borderline Mild concentric left ventricular hypertrophy No segmental wall motion abnormalities. There is no ventricular septal defect visualized. LVEF is 50%. Right Ventricle Right ventricle is grossly normal in size. Right ventricular systolic function is grossly normal. Pacemaker lead is present in the right ventricle. Atria The left atrium size moderately enlarged The right atrium size is normal. The interatrial septum is intact with no evidence for an atrial septal defect. Aortic Valve Aortic valve is calcified. Aortic valve is probably trileaflet Moderate aortic stenosis. Highest mean aortic valve gradient is 25.97mmHg. Peak aortic valve gradient is 39.91mmHg. Calculated TWIN by the continuity equation is 1.1_cm2. Mild aortic regurgitation. Mitral Valve Mild mitral annular calcification. No evidence of mitral valve stenosis. Mild mitral regurgitation. Tricuspid Valve The tricuspid valve is normal in structure. There is no tricuspid valve stenosis. Mild tricuspid regurgitation. The RVSP is 44.74mmHg. Pulmonic Valve The pulmonary valve is normal in structure. There is no pulmonic valvular stenosis. Trace pulmonic regurgitation. Great Vessels The aortic root is normal in size. The ascending aorta is mildly dilated. Aortic arch is not well visualized. The IVC collapses <50% with inspiration. Pericardium There is no pericardial effusion. 2D Dimensions IVSD d PLAX 1.23 cm M: 0.6-1.2 Ao Root d 3.68 cm M: 3.1 - 3.7 LVPW d PLAX 1.23 cm M: 0.6 - 1.2 Ao Asc Diam d 3.60 cm M: 2.6 - 3.4 LVID d PLAX 4.20 cm M: 4.2 - 5.8 LVDs 3.20 cm M: 2.5 - 4.0 LV EF Teichholz 46.8 % FS 23.15 % LV EDV (Teich) 76.4 mL LV ESV (Teich) 40.7 mL Auto EF LV EDV A4C 85.5 mL LV EDV A2C 80.5 mL LV EDV BP 83.1 mL LV ESV A4C 47.4 mL LV ESV A2C 40.5 mL LV ESV BP 44.2 mL LVEF(%) A4C 44.6 % LVEF(%) A2C 49.7 % LVEF(%) BP 46.8 % LV SV A4C 38.1 ml LV SV A2C 40.0 ml LV SV BP 38.9 ml LV CO A4C 2.7 L/min LV CO A2C 2.8 L/min LV CO BP 2.7 L/min HR A4C 70.59 BPM HR A2C 69.90 BPM LV EDV Index (BP) LA Volume LA Length A4C 6.0 cm LA Length A2C 6.1 cm LA Area A4C s 19.53 cm2 LA Area A2C s 22.33 cm2 LA Vol A4C A-L 53.94 mL LA Vol A2C A-L 69.41 mL LA Vol Biplane A-L 61.7 mL LA Vol/BSA A4C A-L LA Vol/BSA A2C A-L LA Vol/BSA BP A-L 33.0 mL/m2 LA Vol A4C MOD 51.0 mL LA Vol A2C MOD 65.3 mL LA Vol BP MOD 58.1 mL RA Volume RA Area A4C 14.6 cm2 RA ESV A4C (A-L) 34.9mL RA Vol/BSA A4C A-L RA Length A4C 5.2 cm RA ESV A4C (MOD) 34.0mL LV Diastology MV E' medial 0.051 (>0.07 m/s) MV E Vmax 1.30 (0.4-1.3 m/s) MV E/E' MED 25.52 (<14) MV A Vmax 0.40 (0.4-1.3 m/s) MV E' lateral 0.098 (>0.1 m/s) E/A Ratio 3.3 MV E/E' LAT 13.27 (<14) MV E' Average 0.075 m/s MV E/E'(average) 17.46 Aortic Valve AoV Vmax 3.16 m/s LVOT Vmax 1.08 m/s AoV Peak Grad 50.0 mmHg LVOT Peak Grad 4.7 mmHg AoV Area (Vmax) 1.08 cm2 LVOT VTI 0.276 m AoV VTI 0.659 m LVOT Mean Grad 2.7 mmHg AoV Mean Huan. 2.37 m/s LVOT SV 87.02 mL AoV Mean Grad 26.0 mmHg LVOT Diam s 2.00 cm AoV Area (VTI) 1.32 cm2 AV Regurg Peak Gr. 39.91 mmHg Velocity Ratio 0.34 AR Decel Hanson 2.6m/sec2 AR DT 1510 msec AR PHT 438 msec AR Vmax 3.88 m/s Mitral Valve MV DT 186 (160-240 msec) MV Vmax TIPS 1.25 m/s MV Mean Grad 1.6 (<2mmHg) MV VTI 0.327 m Pulmonary Valve PV Vmax 1.06 (0.5-1.5 m/s) RVOT Vmax 0.82 m/s PV Peak Grad 4.5 mmHg RVOT Peak Gr. 2.7 mmHg PV Mean Huan 0.66 m/s RVOT VTI 0.157 m PV Mean Grad 2.2 mmHg RVOT Mean Gr. 1.4 mmHg Tricuspid Valve RA Pressure 8.00 mmHg TR Vmax 3.03 m/s TV S' 0.08 m/s TR Peak Grad 36.7 mmHg RVSP (TR) 44.7 mmHg
== END 2025-03-20 02:00 ==
LOC: DI 01:40
PROVIDERS: PCP Family Medicine; Visit Provider Internal Medicine Cardiovascular Disease
DX: I51.7 Cardiomegaly (principal)
CPT/HCPCS: 93306

== ENCOUNTER 2025-04-09 10:34 | Outpatient (CLI) | payer MEDICARE, SELFPAY ==
[2025-04-09 12:21] LABS: HCT 40.3 % (40.0-50.0); HGB 12.7 g/dL (13.5-17.5); MCH 29.2 pg (27.0-33.0); MCHC 31.5 % (32.0-36.0); MCV 93 fL (80-95); MPV 10.0 fL (8.0-11.0); Platelet Count 262 10^3/uL (130-400); RBC 4.35 10^6/uL (4.36-5.78); RDW 15.0 % (11.8-14.1); RDW-SD 51.4 fL; WBC 9.87 10^3/uL (4.4-10.8)
[2025-04-09 12:37] LABS: Estimated GFR 35.76 (mL/min/1.73m2); NT-proBNP 1452 pg/mL (<300); Potassium 4.8 mmol/L (3.5-5.1)
== END 2025-04-09 10:35 | disposition home or self-care (01) ==
LOC: LOS 10:35
PROVIDERS: PCP Family Medicine; Visit Provider Family Medicine
DX: R06.09 Other forms of dyspnea (principal); I10 Essential (primary) hypertension; R53.83 Other fatigue
CPT/HCPCS: 36415; 85027; 82565; 83880; 84132

== ENCOUNTER 2025-04-19 03:16 | Outpatient (CLI) | payer MEDICARE, SELFPAY ==
--- NOTE | 2025-04-19 06:30 | DI.CT_ITS ---
Exam(s) CT CHEST HIGH RESOLUTION EXAM: CT CHEST HIGH RESOLUTION CLINICAL HISTORY: shortness of breath; reassess ILD,J84.9. TECHNIQUE: Imaging protocol: Axial computed tomography images were obtained and coronal and sagittal reformatted images were created and reviewed. 1 millimeter expiratory images or performed in addition to the routine images. Computer aided detection (CAD) was utilized. CONTRAST MATERIAL: Noncontrast COMPARISON: CT CT CHEST HIGH RESOLUTION from 08/16/2022 FINDINGS: Exam is limited by respiratory motion. Pulmonary parenchyma: No consolidation. No suspicious nodules. Interstitial changes: Interlobular septal thickening greater near the lung bases. The findings may represent CHF. Emphysema: None. Tracheobronchial tree: No mucous plugging. No bronchiectasis . Pleura: Small right pleural effusion. Trace left pleural effusion. No pneumothorax. Heart: The heart is moderately dilated. The coronary arteries show moderate calcifications. Mitral annular calcifications. Pulmonary arteries: Prominent. Aorta: Thoracic aorta non-dilated. Moderate atherosclerotic changes. Lymph nodes: No enlarged lymph nodes. Bones: Degenerative changes are seen. No evidence of compression fracture. Upper abdomen: Unremarkable. Soft tissues: Bilateral pacemakers. IMPRESSION: Small right pleural effusion and trace left pleural effusion. Interlobular septal thickening greater at the lung bases. Findings are suspicious for CHF. Interstitial lung disease cannot be assessed on the current exam. Exam is limited by respiratory motion. RADIATION DOSE DELIVERED: 372.68mGy.cm Total DLP 372.68mGy.cm Total DLP DATA REPOSITORY: All CT scans at this facility are submitted to the National Radiology Data Registry (NRDR) Dose Index Registry (DIR) with the [employer] ([employer]). RADIATION OPTIMIZATION: All CT scans at this facility use at least one of these dose optimization techniques: automated exposure control; mA and/or kV adjustment per patient size (includes targeted exams where dose is matched to clinical indication); or iterative reconstruction.
== END 2025-04-19 03:36 ==
LOC: DI 03:16
PROVIDERS: PCP Family Medicine; Visit Provider Family Medicine
DX: J84.9 Interstitial pulmonary disease, unspecified (principal); R06.02 Shortness of breath
CPT/HCPCS: 71250